=== PATIENT | male | born 1960 | race Caucasian/White ===

== ENCOUNTER 2023-09-17 16:34 | Inpatient (IN) | payer BC, SELFPAY ==
--- NOTE | ~2023-09-17 | CT_ITS ---
EXAMINATION: CT ABDOMEN AND PELVIS WITHOUT CONTRAST CLINICAL INFORMATION: left flank pain. COMPARISON: No pertinent prior studies are available for comparison. TECHNIQUE: Multidetector volumetric imaging was performed from the superior aspect of the liver through the pubic symphysis without contrast per renal stone protocol. Sagittal and coronal reformatted images were obtained on the technologist workstation. This CT examination was performed using dose optimization techniques as appropriate, variously including the following: *Automated exposure control *Adjustment of mA and/or kV according to patient size (this includes techniques or standardized protocols for targeted exams where dose is matched to indication/reason for exam; i.e. extremities or head) *Use of iterative reconstruction technique DLP: 760 mGy-cm. FINDINGS: LUNG BASES: The visualized lung bases are unremarkable. Prominent coronary artery calcification LIVER, GALLBLADDER, BILIARY TREE: The non-contrast liver is normal in size, shape, and attenuation. No focal hepatic lesion or biliary ductal dilatation is present. The gallbladder is unremarkable with no evidence of radiopaque gallstones, gallbladder wall thickening, or obvious pericholecystic inflammatory changes. PANCREAS: Unremarkable. SPLEEN: Unremarkable. ADRENAL GLANDS: Unremarkable. KIDNEYS AND URETERS: Mild hydronephrosis to the left kidney extending up to a 1.3 cm calcification at the left ureteropelvic junction. The ureter distal to this however is also distended up to one another 0.4 cm calculi at the left ureterovesicular junction. I do not appreciate any obstructive changes to the contralateral right kidney however there is a tiny punctate 2 mm calcification at the contralateral right ureteral vesicular junction as well. BLADDER: In addition to the calculi at the bilateral ureterovesicular junction there is an additional tiny 2 mm calcification within the posterior bladder lumen on the right GASTROINTESTINAL TRACT: Colonic diverticulosis more so in the sigmoid colon. I do not appreciate any colonic wall thickening or pericolonic inflammatory change to suggest diverticulitis. Small bowel unremarkable ABDOMINAL WALL: Small fat-containing umbilical hernia LYMPHOVASCULAR STRUCTURES: Prominent vascular calcification within the aorta iliac system. No bulky adenopathy. PELVIC VISCERA: Unremarkable. OSSEUS STRUCTURES: Multilevel degenerative changes in the spine and hips CT/CT abdomen pelvis wo IV con IMPRESSION: Left-sided hydronephrosis and hydroureter extending up to both a 1.3 cm calcification at the left ureteropelvic junction as well as also a 0.4 cm calcification at the left ureterovesicular junction. There is a tiny punctate 2 mm calcification at the contralateral right ureterovesicular junction as well.
--- NOTE | ~2023-09-17 | FL_ITS ---
EXAMINATION: XR FLUOROSCOPY WITH IMAGES CLINICAL INFORMATION: Cystoscopy, ureteroscopy, retro, stent left COMPARISON: None available. TECHNIQUE: Fluoroscopy Supervised By: Dr. Prince. Fluoroscopy Time: 11.8. Cumulative Dose: 4.11 mGy. DAP: Not reported on this machine. Images: 2. FINDINGS: Technical assistance and equipment were provided by the Department of Radiology during intraoperative fluoroscopy. A total of 2 limited fluoroscopic spot images are submitted for archival purposes. A radiologist was not present during the procedure. The images are available for review on PACS. FL/FL guidance in OR IMPRESSION: Technical assistance and equipment provided by the Department of Radiology during procedural fluoroscopy, as above. Please see procedure report for further details.
[2023-09-17 16:41] VITALS: BP 150/90; PULSE 96; O2SAT 96
[2023-09-17 17:13] VITALS: BP 145/89; PULSE 99; RESP 18; TEMP 35.9; O2SAT 94; BMI 28.1
--- NOTE | 2023-09-17 17:14 | ECG_ITS ---
Test Reason : L FLANK PAIN Blood Pressure : / mmHG Vent. Rate : 090 BPM Atrial Rate : 090 BPM P-R Int : 188 ms QRS Dur : 094 ms QT Int : 374 ms P-R-T Axes : 031 036 022 degrees QTc Int : 457 ms Normal sinus rhythm Normal ECG No previous ECGs available Referred By: Elizabeth Curry Electronically Signed By:JEREMY LEON MD
--- NOTE | 2023-09-17 17:14 | ED_ITS ---
HPI - General Adult General Chief complaint: Back Pain/Injury Stated complaint: Lower left back pain, increased. per ems Time Seen by Provider: 09/17/23 19:58 Source: patient Mode of arrival: ambulatory Limitations: no limitations History of Present Illness HPI narrative: Patient with no significant past medical history noticed acute onset of sharp left flank pain 3 days ago lasted for few hours then became asymptomatic then again patient had pain which also lasted for few hours and again today patient has severe pain just prior to arrival with nausea vomiting and cold sweats no trauma no hematuria no history of kidney stone in the past no abdominal no testicular pain or penile discharge or hematuria no fever or chills no cough or shortness of breath on arrival patient is pain-free Related Data Home Medications Medication Instructions Recorded Confirmed amlodipine 5 mg tablet 5 mg PO BEDTIME 09/17/23 09/17/23 atorvastatin 40 mg tablet 40 mg PO BEDTIME 09/17/23 09/17/23 dulaglutide 3 mg/0.5 mL 3 mg subcut WE@2100 09/17/23 09/17/23 subcutaneous pen injector (Trulicity) glyburide 2.5 mg-metformin 500 mg 2 tab PO BID 09/17/23 09/17/23 tablet multivitamin 1 tab PO BEDTIME 09/17/23 09/17/23 Allergies Allergy/AdvReac Type Severity Reaction Status Date / Time No Known Allergies Allergy Verified 09/17/23 17:16 Review of Systems 2 Review of Systems: Yes all other systems are reviewed and are negative [facility] Social History Social History Advance Directives: No Advance Directives Information Provided: No Physical Exam ED Vital Signs: Vital Signs - 24 hr 09/17/23 17:13 09/17/23 20:21 09/17/23 22:58 Temperature 96.7 F L 98.3 F 98.3 F Pulse Rate 99 87 94 Respiratory Rate 18 17 17 Blood Pressure 145/89 H 146/85 H 137/77 Pulse Oximetry 94 95 96 Oxygen Delivery Method Room Air Room Air Room Air BMI result Body Mass Index 28.1 Appearance: Alert. Oriented X3. No acute distress. Eyes: PERRLA, No Nystagmus ENT: Pharynx normal. Oral Mucosa moist Neck: Normal inspection. Neck supple. CVS: Normal heart rate and rhythm. Pulses normal. Respiratory: No respiratory distress. Equal air entry bilateral, no wheezing/rales/rhonchi Abdomen: Soft and nontender. Bowel sounds are present, no mass palpable, mild left CVA tenderness Skin: Skin warm and dry. Normal skin color. Normal skin turgor. Extremities: No lower extremity edema. No calf tenderness Neuro: Oriented X 3. Course Course Course Narrative: RME performed by Elizabeth Curry PA-C. Patient is a 63 year old assigned male at presenting to the emergency department with back pain. Detailed physical exam and review of systems are deferred to the director of cardiac rehabilitation. Labs, imaging, and swabs ordered. Patient placed back in the waiting room pending room availability and results. Medications Administered Discontinued Medications Generic Name Dose Route Start Last Admin Trade Name Freq PRN Reason Stop Dose Admin Sodium Chloride 1,000 mls @ 999 mls/hr 09/17/23 21:38 09/17/23 22:09 Ns IV 09/17/23 22:38 999 mls/hr .Q1H1M ONE Administration Tamsulosin HCl 0.4 mg 09/17/23 21:38 09/17/23 22:09 Tamsulosin Hcl 0.4 Mg Capsule PO 09/17/23 21:39 0.4 mg ONCE ONE Administration Medical Decision Making Medical Decision Making [facility] Narrative: Patient with 1.3 cm left UP junction in 0.4 at UV junction stones with frequent pain case discussed with Dr. Tovar urologist plan to do lithotripsy in the a.m. with stent placement will admit to his service Differential Diagnosis Differential Diagnoses: The differential diagnosis associated with the presentation includes Renal colic/pyelonephritis/kidney stone Lab Data [facility] Lab Attestation statement: I reviewed the patient's lab results. 09/17/23 17:47 09/17/23 17:47 Labs: Lab Results 09/17/23 09/17/23 Range/Units 17:47 20:43 WBC 13.2 H (4.8-10.8) X10*3/uL RBC 5.01 (4.60-5.80) X10*6/uL Hgb 15.7 (14.0-18.0) g/dl Hct 45.8 (42.0-52.0) % MCV 91.4 (80.0-98.0) fL MCH 31.3 (27.0-33.0) pg MCHC 34.3 (31.0-36.0) g/dl RDW 12.2 (11.0-16.0) % Plt Count 272 (160-400) X10*3/uL MPV 8.9 L (9.4-12.4) fL Immature Gran % (Auto) 0.9 H (0.0-0.4) % Neut % (Auto) 70.5 (45-73) % Lymph % (Auto) 18.6 L (20-40) % [place] % (Auto) 8.8 (2-11) % Eos % (Auto) 0.9 (0-4) % Baso % (Auto) 0.3 (0-2) % Lymph # (Auto) 2.5 (1.2-4.9) X10*3/uL [place] # (Auto) 1.2 (0.1-1.2) X10*3/uL Eos # (Auto) 0.1 (0.0-0.4) X10*3/uL Baso # (Auto) 0.0 (0.0-0.2) X10*3/uL Abs Immat Gran (auto) 0.12 H (0.00-0.03) X10*3/uL Absolute Neuts (auto) 9.3 H (2.0-8.3) x10*3/uL Absolute Nucleated RBC 0.000 (0.0-0.012) X10*3/uL Nucleated RBC % (auto) 0.0 (0.0-0.2) /100WBC Sodium 138 (135-145) mmol/L Potassium 4.1 (3.3-5.1) mmol/L Chloride 102 (96-108) mmol/L Carbon Dioxide 28 (22-29) mmol/L Anion Gap 12 (12-20) BUN 15 (9-16) mg/dL Creatinine 0.87 (0.5-1.4) mg/dL Estim Creat Clear Calc 92.9 Estimated GFR > 60 Random Glucose 143 H (60-115) mg/dL Calcium 9.9 (8.4-10.2) mg/dL Magnesium 1.8 (1.6-2.6) mg/dL Total Bilirubin 0.6 (0.0-1.0) mg/dL AST 32 (5-37) U/L ALT 25 (0-40) U/L Alkaline Phosphatase 76 (39-117) U/L Troponin I High Sens < 2.7 (<3.5-35.0) ng/L Total Protein 7.7 (6.5-8.0) g/dL Albumin 4.6 (3.5-5.0) g/dL Urine Color Yellow Urine Appearance Clear Urine pH 5.5 (5.0-9.0) Ur Specific [place] 1.020 (1.005-1.025) Urine Protein Negative (Neg-Trace) mg/dL Urine Glucose (UA) Negative (Negative) mg/dL Urine Ketones Trace (Negative) mg/dL Urine Blood Large (3+) H (Negative) Urine Nitrite Negative (Negative) Ur Leukocyte Esterase Trace H (Negative) Urine RBC >20 H (0-2) /HPF Urine WBC 0-5 (0-5) /HPF Ur Squamous Epith Cells 0-2 (0-2) /HPF Urine Bacteria None Seen (None Seen) Hyaline Casts 0-2 (0-2) /LPF Influenza Type A (PCR) NEGATIVE (Negative) Influenza Type B (PCR) NEGATIVE (Negative) RSV RNA Qual (PCR) NEGATIVE (Negative) SARS-CoV-2 RNA (RT-PCR) NEGATIVE (Negative) Independent Interpretation I performed an independent interpretation of an: CT Scan Radiology Impression Discussion of test interpretation with radiology: I have reviewed the radiologist's reading. Radiologist Impression: CT/CT abdomen pelvis wo IV con IMPRESSION: Left-sided hydronephrosis and hydroureter extending up to both a 1.3 cm calcification at the left ureteropelvic junction as well as also a 0.4 cm calcification at the left ureterovesicular junction. There is a tiny punctate 2 mm calcification at the contralateral right ureterovesicular junction as well. Discharge Plan Discharge Clinical Impression: Acute unilateral obstructive uropathy Patient Disposition: Admitted As Inpatient
[2023-09-17 17:55] LABS: MANUAL DIFF FLAG NO
[2023-09-17 18:09] LABS: Basophils Percent Auto 0.3 % (0-2); Eosinophils Absolute Auto 0.1 X10*3/uL (0.0-0.4); Eosinophils Percent Auto 0.9 % (0-4); Hematocrit 45.8 % (42.0-52.0); Hemoglobin 15.7 g/dl (14.0-18.0); Imm Gran Abs Auto 0.12 X10*3/uL (0.00-0.03); Imm Gran Pct Auto 0.9 % (0.0-0.4); Lymphocytes Absolute Auto 2.5 X10*3/uL (1.2-4.9); Lymphocytes Percent Auto 18.6 % (20-40); Mean Corpuscular HGB Conc 34.3 g/dl (31.0-36.0); Mean Corpuscular Hemoglobin 31.3 pg (27.0-33.0); Mean Corpuscular Volume 91.4 fL (80.0-98.0); Mean Platelet Volume 8.9 fL (9.4-12.4); Monocytes Absolute Auto 1.2 X10*3/uL (0.1-1.2); Monocytes Percent Auto 8.8 % (2-11); Neutrophils Absolute Auto 9.3 x10*3/uL (2.0-8.3); Neutrophils Percent Auto 70.5 % (45-73); Platelet Count 272 X10*3/uL (160-400); Red Blood Count 5.01 X10*6/uL (4.60-5.80); Red Cell Distribution Width 12.2 % (11.0-16.0); White Blood Count 13.2 X10*3/uL (4.8-10.8)
[2023-09-17 18:11] LABS: Alanine Aminotransferase 25 U/L (0-40); Albumin Level 4.6 g/dL (3.5-5.0); Alkaline Phosphatase 76 U/L (39-117); Anion Gap 12 (12-20); Aspartate Amino Transferase 32 U/L (5-37); Bilirubin Total 0.6 mg/dL (0.0-1.0); Blood Urea Nitrogen 15 mg/dL (9-16); Calcium 9.9 mg/dL (8.4-10.2); Carbon Dioxide 28 mmol/L (22-29); Chloride 102 mmol/L (96-108); Creatinine Clr Calc Pharmacy 92.9; Estimated Glomerular Filt Rate > 60; Glucose Random 143 mg/dL (60-115); Magnesium 1.8 mg/dL (1.6-2.6); Potassium 4.1 mmol/L (3.3-5.1); Sodium 138 mmol/L (135-145); Total Protein 7.7 g/dL (6.5-8.0)
[2023-09-17 18:19] LABS: Troponin-I High Sensitivity < 2.7 ng/L (<3.5-35.0)
[2023-09-17 18:34] LABS: Influenza A PCR NEGATIVE (Negative); Influenza B PCR NEGATIVE (Negative); Resp Syncy Virus RNA Qual PCR NEGATIVE (Negative); SARS COV2 PCR INHOUSE NEGATIVE (Negative)
[2023-09-17 20:21] VITALS: BP 146/85; PULSE 87; RESP 17; TEMP 36.8; O2SAT 95
[2023-09-17 20:57] LABS: Appearance Urine Clear; Color Urine Yellow; Glucose Urine UA Negative (Negative); Leukocyte Esterase Urine Trace (Negative); Nitrite Urine Negative (Negative); PH 5.5 (5.0-9.0); UMIC TRIGGER UACC YES; Urine Blood Large (3+) (Negative); Urine Ketones Trace mg/dL (Negative); Urine Protein Negative (Neg-Trace)
[2023-09-17 21:00] LABS: Bacteria Urine None Seen (None Seen); Hyaline Casts Urine 0-2 /LPF (0-2); RBC Urine >20 /HPF (0-2); Squamous Epithelial Cell Urine 0-2 /HPF (0-2); WBC Urine 0-5 /HPF (0-5)
--- NOTE | 2023-09-17 21:40 | PHA.MEDREC ---
Pharmacy Consult ? Medication Reconciliation Pharmacy has completed the medication reconciliation. Patient reported medicaitons. Reported lisinopril but amlopdipine is on claim history. When amlodipine was mention he said that sound right. Cierra Williamson, GennaroD
[2023-09-17] MEDS: 0.9 % Sodium Chloride 1,000 ML 999 ML IV (22:09)
[2023-09-17] MEDS: Tamsulosin HCL 0.4 MG CAPSULE PO (22:09)
[2023-09-17 22:58] VITALS: BP 137/77; PULSE 94; RESP 17; TEMP 36.8; O2SAT 96
[2023-09-17] MEDS: 0.9 % Sodium Chloride 1,000 ML 100 ML IVCONT (23:30)
[2023-09-18] VITALS (9 sets, daily range): BP systolic 122–150; BP diastolic 59–92; PULSE 71–94; RESP 15–18; TEMP 36.3–36.7; O2SAT 94–100; BMI 28.2
[2023-09-18] MEDS: Ketorolac Tromethamine 15 MG/ML VIAL IVPUSH ×2 (04:59→23:47)
--- NOTE | 2023-09-18 09:49 | PM.HPGS ---
History of Present Illness History of Present Illness Date of Service: 09/18/23 Chief complaint: Left renal stones Narrative: Julien Hein is a 63 year old male Presents to hospital with 3 days of sharp left flank pain. Consistent with renal colic. Pain with severity to 8/10 which would last for 1-2 hours and then relent. Past medical history of hypertension, dyslipidemia and diabetes - see medication list Presentation triggered by associated nausea with vomiting and cold sweats. Denies hematuria, dysuria. No prior history of renal stones. Creatinine 0.87, WBC 13.2, urine large blood, trace leukocytes, calcium 9.9 CT imaging - images reviewed personally - Mild hydronephrosis to the left kidney extending up to a 1.3 cm calcification at the left ureteropelvic junction. The ureter distal to this however is also distended up to one another 0.4 cm calculi at the left ureterovesicular junction Based on clinical findings recommend cystoscopy, left retrograde, left stent placement Review of Systems Constitutional: Constitutional: Reports as per HPI and Reports no additional constitutional complaints Cardiovascular: Cardiovascular: Reports as per HPI and Reports no additional cardiovascular complaints Respiratory: Respiratory: Reports as per HPI and Reports no additional respiratory complaints Gastrointestinal: Gastrointestinal: Reports as per HPI and Reports no additional gastrointestinal complaints Genitourinary: Genitourinary: Reports as per HPI Musculoskeletal: Musculoskeletal: Reports no additional musculoskeletal complaints and Reports as per HPI Neurologic: Reports system reviewed and no additional complaints, except as documented and Reports as per HPI [facility] Social History Social History Household Members: Spouse Housing: House Do you presently have visiting nurse or other home services: No Patient Tobacco Use Status: Never used Tobacco Use of substances other than those prescribed or required for medical reasons: No Currently Displaying Signs/Symptoms of Drug Intoxication Withdrawal: No Have you been hit, kicked, punched, or otherwise hurt by someone within the past year? If so, by whom?: No Do you feel safe in your current relationship?: Yes Are you made to feel afraid or neglected: No Advance Directives: No Advance Directives Information Provided: No Do you have thoughts of harming others: None Do you have a plan to hurt others: No Plan Recently lost weight without trying: No How much weight loss: Not applicable Eating poorly because of decreased appetite: No Nutrition screen score: 0 Nutrition Risks: No Nutritional Risk Poor oral hygiene: No Meds Allergies Allergy/AdvReac Type Severity Reaction Status Date / Time No Known Allergies Allergy Verified 09/17/23 17:16 Active Medications: Current Medications Acetaminophen (Acetaminophen 325 Mg Tablet) 650 mg PO Q6H PRN PRN Reason: Pain, Mild (Pain Scale 1-3) Hydromorphone HCl (Hydromorphone Hcl 1 Mg/Ml Syringe) 0.5 mg IVPUSH Q4H PRN; Protocol PRN Reason: Pain, Severe (Pain Scale 7-10) Sodium Chloride (Ns) 1,000 mls @ 100 mls/hr IVCONT .Q10H [facility] Last Admin: 09/17/23 23:30 Dose: 100 mls/hr Ketorolac Tromethamine (Ketorolac Tromethamine 15 Mg/Ml Vial) 15 mg IVPUSH Q6H PRN PRN Reason: Pain, Moderate(Pain Scale 4-6) Last Admin: 09/18/23 04:59 Dose: 15 mg Morphine Sulfate (Morphine Sulfate 4 Mg/Ml Cartridge) 4 mg IVPUSH RQ4H PRN; Protocol PRN Reason: Pain, Severe (Pain Scale 7-10) Ondansetron HCl (Ondansetron Hcl 4 Mg/2 Ml Vial) 4 mg IVPUSH RQ6H PRN PRN Reason: Vomiting Ondansetron HCl (Ondansetron Hcl 4 Mg/2 Ml Vial) 4 mg IVPUSH Q8H PRN PRN Reason: Nausea and Vomiting Oxycodone HCl (Oxycodone Hcl Immed Release 5 Mg Tablet) 5 mg PO Q6H PRN PRN Reason: Pain, Severe (Pain Scale 7-10) Sodium Chloride (0.9 % Sodium Chloride Flush 3 Ml Syringe) 3 ml IVFLUSH QSHIFT [facility] Last Admin: 09/18/23 07:26 Dose: Not Given Home Medications Medication Instructions Recorded Confirmed Last Taken Type amlodipine 5 mg tablet 5 mg PO BEDTIME 09/17/23 09/17/23 09/16/22 History atorvastatin 40 mg tablet 40 mg PO BEDTIME 09/17/23 09/17/23 09/16/22 History dulaglutide 3 mg/0.5 mL 3 mg subcut WE@2100 09/17/23 09/17/23 09/12/23 History subcutaneous pen injector (Trulicity) glyburide 2.5 mg-metformin 500 mg 2 tab PO BID 09/17/23 09/17/23 09/17/22 History tablet multivitamin 1 tab PO BEDTIME 09/17/23 09/17/23 09/16/22 History Physical Exam Vital Signs: Vital Signs: Last Vital Signs Temp 97.6 F 09/18/23 07:08 Pulse 86 09/18/23 07:08 Resp 16 09/18/23 07:08 BP 129/79 09/18/23 07:08 Pulse Ox 97 09/18/23 07:08 O2 Del Method Room Air 09/18/23 07:08 BMI result Body Mass Index 28.2 Const: General: cooperative, healthy appearing, comfortable and no acute distress Orientation/consciousness: patient oriented x3 HEENT: Face and sinus: Yes normal facial exam Mouth: moist mucous membranes Neck: Neck: Yes normal visual inspection, Yes full ROM and Yes trachea midline Chest: Chest palpation & inspection: normal inspection of the chest Resp: Effort & Inspection: normal respiratory effort, able to speak in complete sentences and no respiratory distress GI: Inspection: Yes normal to inspection Back/Spine/Pelvis: Cervical Spine: normal cervical lordosis Thoracic/Lumbar Spine: thoracic and lumbar spine normal to inspection Skin: General skin exam: no rashes or lesions noted Neuro: General: patient oriented x3, tone normal and moves all extremities Extrem: General: Yes normal to inspection and Yes capillary refill normal Results Results Labs: Short CBC 09/17/23 Range/Units 17:47 WBC 13.2 H (4.8-10.8) X10*3/uL Hgb 15.7 (14.0-18.0) g/dl Hct 45.8 (42.0-52.0) % Plt Count 272 (160-400) X10*3/uL BMP 09/17/23 17:47 Sodium 138 Potassium 4.1 Chloride 102 Carbon Dioxide 28 BUN 15 Creatinine 0.87 Calcium 9.9 Liver Function 09/17/23 Range/Units 17:47 Total Bilirubin 0.6 (0.0-1.0) mg/dL AST 32 (5-37) U/L ALT 25 (0-40) U/L Alkaline Phosphatase 76 (39-117) U/L Albumin 4.6 (3.5-5.0) g/dL Urine 09/17/23 Range/Units 20:43 Urine Color Yellow Urine Appearance Clear Urine pH 5.5 (5.0-9.0) Ur Specific [place] 1.020 (1.005-1.025) Urine Protein Negative (Neg-Trace) mg/dL Urine Glucose (UA) Negative (Negative) mg/dL Assessment and Plan (1) Acute unilateral obstructive uropathy: Status: Acute Plan Risks, benefits and alternatives to therapy were discussed. These include but are not limited to infection, bleeding, damage to local organs and tissues, need for further interventions. Anesthetic risks regarding cardiac arrhythmia, blood clots, and potential mortality were discussed. The patient understands the typical recovery time and the outpatient nature of the procedure. After consideration of these risks the patient gives full informed consent and they wish to move ahead with the procedure. Cystoscopy, left retrograde, left stent placement Quality Stroke Does the patient have a stroke diagnosis?: No VTE Prior VTE?: No VTE Risk Level:: Medical - low VTE Device Contraindication: Treatment Not Indicated VTE Drug Contraindication: Treatment Not Indicated Procedures Date of Service Date of Service: 09/18/23
[2023-09-18] MEDS: 0.9 % Sodium Chloride 1,000 ML 100 ML IVCONT (13:41)
--- NOTE | 2023-09-18 14:06 | MHC.CM.PN ---
pt live with has own ride home and is indepencent dc plan home no servies
[2023-09-18 14:26] LABS: Glucose, Whole Blood 122 mg/dL (60-115)
--- NOTE | 2023-09-18 14:27 | PC.NURSE ---
Pre op care transitioned to Meaghan MADSEN.
--- NOTE | 2023-09-18 14:36 | HO.ANESPROP2 ---
[facility] Active Problems Active Problems: All Active Problems (Updated 09/17/23 @ 21:32 by Ed Jacob MD) Acute unilateral obstructive uropathy (Acute) Surgical History Surgical History History of right shoulder replacement Hx of knee surgery History of Problems with Anesthesia: No Social History Social History Household Members: Spouse Housing: House Do you presently have visiting nurse or other home services: No Patient Tobacco Use Status: Never used Tobacco Use of substances other than those prescribed or required for medical reasons: No Currently Displaying Signs/Symptoms of Drug Intoxication Withdrawal: No Have you been hit, kicked, punched, or otherwise hurt by someone within the past year? If so, by whom?: No Do you feel safe in your current relationship?: Yes Are you made to feel afraid or neglected: No Are you DNR?: No Advance Directives: No Advance Directives Information Provided: No Do you have thoughts of harming others: None Do you have a plan to hurt others: No Plan Recently lost weight without trying: No How much weight loss: Not applicable Eating poorly because of decreased appetite: No Nutrition screen score: 0 Nutrition Risks: No Nutritional Risk Poor oral hygiene: No service: No Meds Allergies Allergy/AdvReac Type Severity Reaction Status Date / Time No Known Allergies Allergy Verified 09/18/23 13:59 Active Medications: Current Medications Acetaminophen (Acetaminophen 325 Mg Tablet) 650 mg PO Q6H PRN PRN Reason: Pain, Mild (Pain Scale 1-3) Hydromorphone HCl (Hydromorphone Hcl 1 Mg/Ml Syringe) 0.5 mg IVPUSH Q4H PRN; Protocol PRN Reason: Pain, Severe (Pain Scale 7-10) Sodium Chloride (Ns) 1,000 mls @ 100 mls/hr IVCONT .Q10H [facility] Last Admin: 09/18/23 13:41 Dose: 100 mls/hr Ketorolac Tromethamine (Ketorolac Tromethamine 15 Mg/Ml Vial) 15 mg IVPUSH Q6H PRN PRN Reason: Pain, Moderate(Pain Scale 4-6) Last Admin: 09/18/23 04:59 Dose: 15 mg Morphine Sulfate (Morphine Sulfate 4 Mg/Ml Cartridge) 4 mg IVPUSH RQ4H PRN; Protocol PRN Reason: Pain, Severe (Pain Scale 7-10) Ondansetron HCl (Ondansetron Hcl 4 Mg/2 Ml Vial) 4 mg IVPUSH RQ6H PRN PRN Reason: Vomiting Ondansetron HCl (Ondansetron Hcl 4 Mg/2 Ml Vial) 4 mg IVPUSH Q8H PRN PRN Reason: Nausea and Vomiting Oxycodone HCl (Oxycodone Hcl Immed Release 5 Mg Tablet) 5 mg PO Q6H PRN PRN Reason: Pain, Severe (Pain Scale 7-10) Sodium Chloride (0.9 % Sodium Chloride Flush 3 Ml Syringe) [facility] Last Admin: 09/18/23 07:26 Dose: Not Given Home Medications Medication Instructions Recorded Confirmed Last Taken Type amlodipine 5 mg tablet 5 mg PO BEDTIME 09/17/23 09/17/23 09/16/22 History atorvastatin 40 mg tablet 40 mg PO BEDTIME 09/17/23 09/17/23 09/16/22 History dulaglutide 3 mg/0.5 mL 3 mg subcut WE@2100 09/17/23 09/17/23 09/12/23 History subcutaneous pen injector (Trulicity) glyburide 2.5 mg-metformin 500 mg 2 tab PO BID 09/17/23 09/17/23 09/17/22 History tablet multivitamin 1 tab PO BEDTIME 09/17/23 09/17/23 09/16/22 History Exam Height,Weight and Vital Signs: Height 5 ft 8 in Weight 84 kg Last Vital Signs Temp 97.8 F 09/18/23 14:13 Pulse 83 09/18/23 14:13 Resp 16 09/18/23 14:13 BP 150/87 H 09/18/23 14:13 Pulse Ox 94 09/18/23 14:13 O2 Del Method Room Air 09/18/23 14:13 Pertinent Lab Results Pertinent Lab Results: Laboratory Tests 09/17/23 09/17/23 09/18/23 17:47 20:43 14:19 WBC 13.2 H RBC 5.01 Hgb 15.7 Hct 45.8 MCV 91.4 MCH 31.3 MCHC 34.3 RDW 12.2 Plt Count 272 MPV 8.9 L Immature Gran % (Auto) 0.9 H Neut % (Auto) 70.5 Lymph % (Auto) 18.6 L [place] % (Auto) 8.8 Eos % (Auto) 0.9 Baso % (Auto) 0.3 Lymph # (Auto) 2.5 [place] # (Auto) 1.2 Eos # (Auto) 0.1 Baso # (Auto) 0.0 Abs Immat Gran (auto) 0.12 H Absolute Neuts (auto) 9.3 H Absolute Nucleated RBC 0.000 Nucleated RBC % (auto) 0.0 Sodium 138 Potassium 4.1 Chloride 102 Carbon Dioxide 28 Anion Gap 12 BUN 15 Creatinine 0.87 Estim Creat Clear Calc 92.9 Estimated GFR > 60 POC Glucose 122 H Random Glucose 143 H Calcium 9.9 Magnesium 1.8 Total Bilirubin 0.6 AST 32 ALT 25 Alkaline Phosphatase 76 Troponin I High Sens < 2.7 Total Protein 7.7 Albumin 4.6 Urine Color Yellow Urine Appearance Clear Urine pH 5.5 Ur Specific [place] 1.020 Urine Protein Negative Urine Glucose (UA) Negative Urine Ketones Trace Urine Blood Large (3+) H Urine Nitrite Negative Ur Leukocyte Esterase Trace H Urine RBC >20 H Urine WBC 0-5 Ur Squamous Epith Cells 0-2 Urine Bacteria None Seen Hyaline Casts 0-2 Influenza Type A (PCR) NEGATIVE Influenza Type B (PCR) NEGATIVE RSV RNA Qual (PCR) NEGATIVE SARS-CoV-2 RNA (RT-PCR) NEGATIVE Airway Mallampati Class: II TM Dist: >3cm Neck ROM: Full Heart: RRR Lungs: CTA Assessment and Plan Assessment Anesthesia Assessment: Anesthesia Plan Discussed Final Anesthetic Review History of Problems with Anesthesia: No ASA Class: III and Emergency Final Preanesthetic Review: Meds/Allgs Chart Reviewed, Consent Obtained/Reviewed and Anes Risks/Benef Reviewed Patient Risk: Intermediate Procedure Risk: Low Anesthetic Plan Anesthetic Plan: GA Disposition: Standard PACU
--- NOTE | 2023-09-18 14:57 | HO.ANESPROP2 ---
[facility] Active Problems Active Problems: All Active Problems (Updated 09/17/23 @ 21:32 by Ed Jacob MD) Acute unilateral obstructive uropathy (Acute) Past Medical History Functional capacity: independent ambulation Surgical History Surgical History History of right shoulder replacement Hx of knee surgery History of Problems with Anesthesia: No Social History Social History Household Members: Spouse Housing: House Do you presently have visiting nurse or other home services: No Patient Tobacco Use Status: Never used Tobacco Use of substances other than those prescribed or required for medical reasons: No Currently Displaying Signs/Symptoms of Drug Intoxication Withdrawal: No Have you been hit, kicked, punched, or otherwise hurt by someone within the past year? If so, by whom?: No Do you feel safe in your current relationship?: Yes Are you made to feel afraid or neglected: No Are you DNR?: No Advance Directives: No Advance Directives Information Provided: No Do you have thoughts of harming others: None Do you have a plan to hurt others: No Plan Recently lost weight without trying: No How much weight loss: Not applicable Eating poorly because of decreased appetite: No Nutrition screen score: 0 Nutrition Risks: No Nutritional Risk Poor oral hygiene: No service: No Meds Allergies Allergy/AdvReac Type Severity Reaction Status Date / Time No Known Allergies Allergy Verified 09/18/23 13:59 Active Medications: Current Medications Acetaminophen (Acetaminophen 325 Mg Tablet) 650 mg PO Q6H PRN PRN Reason: Pain, Mild (Pain Scale 1-3) Fentanyl (Fentanyl Citrate/Pf 100 Mcg/2 Ml Vial) 25 mcg IVPUSH Q5M PRN; Protocol PRN Reason: Pain, Moderate(Pain Scale 4-6) Hydromorphone HCl (Hydromorphone Hcl 1 Mg/Ml Syringe) 0.5 mg IVPUSH Q4H PRN; Protocol PRN Reason: Pain, Severe (Pain Scale 7-10) Sodium Chloride (Ns) 1,000 mls @ 100 mls/hr IVCONT .Q10H OZ Last Admin: 09/18/23 13:41 Dose: 100 mls/hr Ketorolac Tromethamine (Ketorolac Tromethamine 15 Mg/Ml Vial) 15 mg IVPUSH Q6H PRN PRN Reason: Pain, Moderate(Pain Scale 4-6) Last Admin: 09/18/23 04:59 Dose: 15 mg Morphine Sulfate (Morphine Sulfate 4 Mg/Ml Cartridge) 4 mg IVPUSH RQ4H PRN; Protocol PRN Reason: Pain, Severe (Pain Scale 7-10) Ondansetron HCl (Ondansetron Hcl 4 Mg/2 Ml Vial) 4 mg IVPUSH RQ6H PRN PRN Reason: Vomiting Ondansetron HCl (Ondansetron Hcl 4 Mg/2 Ml Vial) 4 mg IVPUSH Q8H PRN PRN Reason: Nausea and Vomiting Ondansetron HCl (Ondansetron Hcl 4 Mg/2 Ml Vial) 4 mg IVPUSH ONCE PRN PRN Reason: Nausea and Vomiting Oxycodone HCl (Oxycodone Hcl Immed Release 5 Mg Tablet) 5 mg PO Q6H PRN PRN Reason: Pain, Severe (Pain Scale 7-10) Oxycodone HCl (Oxycodone Hcl Immed Release 5 Mg Tablet) 5 mg PO ONCE PRN PRN Reason: Pain, Severe (Pain Scale 7-10) Sodium Chloride (0.9 % Sodium Chloride Flush 3 Ml Syringe) [facility] Last Admin: 09/18/23 07:26 Dose: Not Given Home Medications Medication Instructions Recorded Confirmed Last Taken Type amlodipine 5 mg tablet 5 mg PO BEDTIME 09/17/23 09/17/23 09/16/22 History atorvastatin 40 mg tablet 40 mg PO BEDTIME 09/17/23 09/17/23 09/16/22 History dulaglutide 3 mg/0.5 mL 3 mg subcut WE@2100 09/17/23 09/17/23 09/12/23 History subcutaneous pen injector (Trulicity) glyburide 2.5 mg-metformin 500 mg 2 tab PO BID 09/17/23 09/17/23 09/17/22 History tablet multivitamin 1 tab PO BEDTIME 09/17/23 09/17/23 09/16/22 History Exam Height,Weight and Vital Signs: Height 5 ft 8 in Weight 84 kg Last Vital Signs Temp 97.8 F 09/18/23 14:13 Pulse 83 09/18/23 14:13 Resp 16 09/18/23 14:13 BP 150/87 H 09/18/23 14:13 Pulse Ox 94 09/18/23 14:13 O2 Del Method Room Air 09/18/23 14:13 Pertinent Lab Results Pertinent Lab Results: Laboratory Tests 09/17/23 09/17/23 09/18/23 17:47 20:43 14:19 WBC 13.2 H RBC 5.01 Hgb 15.7 Hct 45.8 MCV 91.4 MCH 31.3 MCHC 34.3 RDW 12.2 Plt Count 272 MPV 8.9 L Immature Gran % (Auto) 0.9 H Neut % (Auto) 70.5 Lymph % (Auto) 18.6 L [place] % (Auto) 8.8 Eos % (Auto) 0.9 Baso % (Auto) 0.3 Lymph # (Auto) 2.5 [place] # (Auto) 1.2 Eos # (Auto) 0.1 Baso # (Auto) 0.0 Abs Immat Gran (auto) 0.12 H Absolute Neuts (auto) 9.3 H Absolute Nucleated RBC 0.000 Nucleated RBC % (auto) 0.0 Sodium 138 Potassium 4.1 Chloride 102 Carbon Dioxide 28 Anion Gap 12 BUN 15 Creatinine 0.87 Estim Creat Clear Calc 92.9 Estimated GFR > 60 POC Glucose 122 H Random Glucose 143 H Calcium 9.9 Magnesium 1.8 Total Bilirubin 0.6 AST 32 ALT 25 Alkaline Phosphatase 76 Troponin I High Sens < 2.7 Total Protein 7.7 Albumin 4.6 Urine Color Yellow Urine Appearance Clear Urine pH 5.5 Ur Specific [place] 1.020 Urine Protein Negative Urine Glucose (UA) Negative Urine Ketones Trace Urine Blood Large (3+) H Urine Nitrite Negative Ur Leukocyte Esterase Trace H Urine RBC >20 H Urine WBC 0-5 Ur Squamous Epith Cells 0-2 Urine Bacteria None Seen Hyaline Casts 0-2 Influenza Type A (PCR) NEGATIVE Influenza Type B (PCR) NEGATIVE RSV RNA Qual (PCR) NEGATIVE SARS-CoV-2 RNA (RT-PCR) NEGATIVE Airway Mallampati Class: II TM Dist: >3cm Neck ROM: Full Heart: RRR Lungs: CTA Assessment and Plan Final Anesthetic Review History of Problems with Anesthesia: No NPO: Yes ASA Class: II Final Preanesthetic Review: Meds/Allgs Chart Reviewed, Consent Obtained/Reviewed and Anes Risks/Benef Reviewed Patient Risk: Intermediate Procedure Risk: Low Anesthetic Plan Anesthetic Plan: GA Disposition: Standard PACU
--- NOTE | 2023-09-18 17:48 | MHC.SHP ---
Pre-Procedural Eval Section A Date of Service: 09/18/23 The patient is an INPATIENT: Yes The History & Physical has been completed within 30 days and I have reviewed it.: Yes Section B Chief Complaint: Left renal stones Allergies: Allergies Allergy/AdvReac Type Severity Reaction Status Date / Time No Known Allergies Allergy Verified 09/18/23 13:59 Plan Diagnosis/Plan: Unchanged I have reviewed the history and physical and performed a pertinent physical examination on my patient. No changes have occurred unless specified. Cysto Left retrograde, left ureteral stent. Discussed risks to include but not limited to, blood in the urine, burning with urination, urgency. Time Spent With Patient Time: Total time managing care of this patient today ____ minutes.
--- NOTE | 2023-09-18 18:54 | W.PM.OPN ---
Operative Note Operative Note Date of Service: 09/18/23 Narrative: PreOperative Diagnosis:?? Left ureteral stones left hydronephrosis Post Operative Diagnosis:?? ?Left ureteral stones left hydronephrosis Procedure: - cystoscopy, left retrograde - left stent insertion, size 6 [place]er by multi length Surgeon:?Dr Ryan Prince Anesthesia:? General Procedure: After informed consent was verified the patient was brought to the operating placed on the OR table in supine position.? General Anesthesia was administered per protocol.? The patient was placed in lithotomy position, prepped and draped in the usual sterile fashion.? Safety pause time-out and side of surgery confirmed.? Antibiotics confirmed. A 22 [place] cystoscope was inserted transurethrally, the bulbous urethra was within normal limits. The prostatic urethra noted prominent median lobe. The bladder was visualized.? Both ureteric orifices were in normal position. The? left ureteric orifice was cannulated? and a retrograde examination was performed, a distal ureteral stone was visualized. A hydrophilic guidewire was placed up to the level of the renal pelvis under fluoroscopy. The UPJ stone was noted on fluoroscopy. A 6 fr by multi length cm ureteral stent was passed over the guide wire under fluoroscopic guidance. The guide wire was removed. The bladder was emptied.? The rigid cystoscope was removed. ? 2% lidocaine jelly was passed transurethrally. The patient tolerated the procedure well and was brought to the recovery room in stable condition. Complications: None Drains: Ureteral stent as dictated above
[2023-09-18] MEDS: Acetaminophen 1,000 MG/100 ML PIGGYBACK 400 MG IV (20:57)
[2023-09-18 20:59] LABS: Glucose, Whole Blood 116 mg/dL (60-115)
[2023-09-18] MEDS: 0.9 % Sodium Chloride Flush 3 ML SYRINGE IVFLUSH (23:51)
[2023-09-19] MEDS: 0.9 % Sodium Chloride 1,000 ML 100 ML IVCONT (02:30)
[2023-09-19 03:24] VITALS: BP 131/78; PULSE 72; RESP 18; TEMP 36.3; O2SAT 96
[2023-09-19 07:15] VITALS: BP 137/72; PULSE 88; RESP 16; TEMP 36.4; O2SAT 96
--- NOTE | 2023-09-19 09:42 | PM.DS ---
DS: Providers Provider Date of Service: 09/19/23 Date of admission: 09/17/23 23:16 Primary care physician: Mana Garner NP DS: Diagnosis Discharge Diagnosis (1) Acute unilateral obstructive uropathy: Status: Acute DS: Summary Hospital Course Hospital Course: Underwent cystoscopy, left stent placement Resolution of pain Time spent discussing smoking cessation with patient: 3 to 10 minutes Status at Discharge Functional status at discharge: independent ambulation Overall status at discharge: patient is back to baseline Time Attestation Discharge coordination time: Less than 30 minutes Quality: Safe Use of Opioids Does Pt have an Active Cancer Diagnosis on the Problem List?: No Quality: Stroke Does the patient have a stroke diagnosis?: No Physical Exam Vital Signs: Vital Signs: Last Vital Signs Temp 97.6 F 09/19/23 07:15 Pulse 88 09/19/23 07:15 Resp 16 09/19/23 07:15 BP 137/72 09/19/23 07:15 Pulse Ox 96 09/19/23 07:15 O2 Del Method Room Air 09/19/23 07:15 BMI result Body Mass Index 28.2 DS: Data Data Completed and Pending Labs on day of discharge: Laboratory Results - last 24 hr 09/18/23 09/18/23 14:19 20:54 POC Glucose [address] scan - abdomen: Attestation: I personally reviewed and interpreted this imaging study as follows: My impression: Distal left stone, proximal left UPJ stone Radiologist's impression: ITS Impressions Abdomen/Pelvis CT 09/17/23 17:51 IMPRESSION: Left-sided hydronephrosis and hydroureter extending up to both a 1.3 cm calcification at the left ureteropelvic junction as well as also a 0.4 cm calcification at the left ureterovesicular junction. There is a tiny punctate 2 mm calcification at the contralateral right ureterovesicular junction as well. Discharge Plan Discharge Anticipated Discharge Date/Time: 09/18/23 19:40 Patient Disposition: Home, Self-Care Discharge Diagnosis: Left nephrolithiasis Referrals: Mana Garner NP [Primary Care Provider] - None Discharge Medications: New phenazopyridine [Pyridium] 200 mg tablet 200 mg PO TID PRN (Reason: urinary burning) Qty: 30 0RF tamsulosin [Flomax] 0.4 mg capsule 0.4 mg PO DAILY Qty: 30 0RF Continued multivitamin Tablet 1 tab PO BEDTIME atorvastatin 40 mg tablet 40 mg PO BEDTIME amlodipine 5 mg tablet 5 mg PO BEDTIME glyburide-metformin 2.5-500 mg tablet 2 tab PO BID Trulicity 3 mg/0.5 mL pen injector 3 mg subcut WE@2100 Discharge Orders: Discharge Order (Routine); Ordered 09/18/23 Ordered By: Ryan Prince Diet: Advance to usual diet Activity on Discharge: As tolerated Stand Alone Forms: Patient Portal Discharge page Care Plan Goals: Follow up with Dr. Tovar for further stone management Health Concerns: Increase fluid intake. Plan of Treatment: Follow up with Dr. Tovar for further stone management Assessment: Stable
[2023-09-19] MEDS: Phenazopyridine HCL 100 MG TABLET PO (10:17)
--- NOTE | 2023-09-19 12:42 | MHC.CM.PN ---
Patient discharged to home self care today. He has arranged for transportation home.
--- NOTE | 2023-09-20 06:41 | HO.POSTANES ---
Post Anesthesia Evaluation Post Anesthesia Evaluation Date of Service: 09/19/23 Vital Signs: Patient seen at 0730am 09/19/2023. Vitals 137/72, 88, 16, 97.6F, 96%RA Anesthesia: General Mental Status: Awake Pain Control: Satisfactory Nausea/Vomiting: None Hydration: Adequate Anesthesia-Related Issues: No Anes. Related Issues
== END 2023-09-19 11:07 | disposition home or self-care (01) | DRG 465 ==
LOC: HO.ED 21:32 → HO.EDOVER 23:29 → HO.S3 09-18 03:50
PROVIDERS: Physician Assistant Medical; Urology; Admitting Provider Urology; Emergency Provider Internal Medicine; PCP Nurse Practitioner Family; Visit Provider Urology
PROC: 0T778DZ Dilation of Left Ureter with Intraluminal Device, Via Natural or Artificial Opening Endoscopic (ICD-10-PCS; principal; 2023-09-18 15:20)
DX: N13.2 Hydronephrosis with renal and ureteral calculous obstruction (principal); E11.9 Type 2 diabetes mellitus without complications; Z20.822 Contact with and (suspected) exposure to COVID-19; Z79.85 Long-term (current) use of injectable non-insulin antidiabetic drugs; Z79.84 Long term (current) use of oral hypoglycemic drugs; Z79.899 Other long term (current) drug therapy
CPT/HCPCS: 0241U; 74176; 80053; 81001; 82947; 83735; 84484; 85025; 93005; 99285; C1758; C1769; C2617; J0131; J1885; J1956; J2250; J2704; J3010; Q9967

== ENCOUNTER → 2023-09-17 17:14 | Outpatient (BNV) | payer BC, SELFPAY | PROVIDERS: Admitting Provider Urology; Emergency Provider Internal Medicine; PCP Nurse Practitioner Family; Visit Provider Internal Medicine Cardiovascular Disease | DX: Z01.818 Encounter for other preprocedural examination (principal); N13.9 Obstructive and reflux uropathy, unspecified | CPT/HCPCS: 93010 ==

== ENCOUNTER → 2023-09-17 23:16 | Outpatient (BNV) | payer BC, SELFPAY | PROVIDERS: Admitting Provider Urology; Emergency Provider Internal Medicine; PCP Nurse Practitioner Family; Visit Provider Urology | DX: N13.9 Obstructive and reflux uropathy, unspecified (principal) | CPT/HCPCS: 52332; 74420; 99222; 99238 ==

== ENCOUNTER → 2023-09-26 07:54 | Day surgery (SDC) | payer BC, SELFPAY ==
--- NOTE | 2023-09-24 13:37 | HO.ANESPROP2 ---
HPI - Anesthesia Eval Consult details Narrative: 63yo M for Left Lithotripsy ESW,with stent removal Anesthesia Pre-Procedure Meds Is the patient on any of the following meds?: Dulaglutide (Trulicity) PMF Active Problems Active Problems: All Active Problems (Updated 09/18/23 @ 18:01 by Elisa Gaston RN) Acute unilateral obstructive uropathy (Acute) Past Medical History Medical History (Updated 09/18/23 @ 18:01 by Elisa Gaston RN) Hyperlipidemia Hypertension Diabetes type 2, controlled Surgical History Surgical History History of right shoulder replacement Hx of knee surgery History of Problems with Anesthesia: No Social History Social History Household Members: Spouse Housing: House Do you presently have visiting nurse or other home services: No Patient Tobacco Use Status: Never used Tobacco service: No Meds Allergies Allergy/AdvReac Type Severity Reaction Status Date / Time No Known Allergies Allergy Verified 09/18/23 13:59 Home Medications Medication Instructions Recorded Confirmed Last Taken Type amlodipine 5 mg tablet 5 mg PO BEDTIME 09/17/23 09/17/23 09/16/22 History atorvastatin 40 mg tablet 40 mg PO BEDTIME 09/17/23 09/17/23 09/16/22 History dulaglutide 3 mg/0.5 mL 3 mg subcut WE@2100 09/17/23 09/17/23 09/12/23 History subcutaneous pen injector (Trulicity) glyburide 2.5 mg-metformin 500 mg 2 tab PO BID 09/17/23 09/17/23 09/17/22 History tablet multivitamin 1 tab PO BEDTIME 09/17/23 09/17/23 09/16/22 History Exam Pertinent Lab Results Pertinent Lab Results: Laboratory Tests 09/17/23 17:47 WBC 13.2 H Hgb 15.7 Hct 45.8 Plt Count 272 Sodium 138 Potassium 4.1 Chloride 102 Carbon Dioxide 28 BUN 15 Creatinine 0.87 Narrative Narrative: EKG 09/2023 Vent. Rate : 090 BPM Atrial Rate : 090 BPM P-R Int : 188 ms QRS Dur : 094 ms QT Int : 374 ms P-R-T Axes : 031 036 022 degrees QTc Int : 457 ms Normal sinus rhythm Normal ECG No previous ECGs available Assessment and Plan Assessment Anesthesia Assessment: Chart Reviewed Final Anesthetic Review History of Problems with Anesthesia: No
--- NOTE | ~2023-09-26 | XR_ITS ---
EXAMINATION: XR ABDOMEN KUB CLINICAL INDICATION: Left-sided renal stone COMPARISON: None available. TECHNIQUE: AP view of the abdomen. FINDINGS: There is scattered stool and gas seen in the colon without any significant distention. There is a 1.1 cm stone left lower pole kidney. There is a left ureteral stent in place. There is no organomegaly. There is moderate spondylosis L1-L2 and mild spondylosis L3-L4 and L4-L5 disc levels. XR/XR KUB IMPRESSION: 1. 1.1 cm stone left lower pole kidney. 2. Left ureteral stent is in place. 3. Mild constipation.
== END ==
PROVIDERS: PCP Nurse Practitioner Family; Visit Provider Urology
DX: N13.9 Obstructive and reflux uropathy, unspecified (principal); Z53.09 Procedure and treatment not carried out because of other contraindication
CPT/HCPCS: 74018

== ENCOUNTER 2023-10-04 09:56 | Day surgery (SDC) | payer BC, SELFPAY ==
--- NOTE | 2023-10-03 10:24 | P.CONAN_ITS ---
Documented by User: Radha Ray NP 10/03/23 10:25 HPI - Anesthesia Eval Consult details Narrative: 63yo M for Left Lithotripsy ESW,with stent removal Anesthesia Pre-Procedure Meds Is the patient on any of the following meds?: Dulaglutide (Trulicity) [facility] Past Medical History Medical History Hyperlipidemia Hypertension Diabetes type 2, controlled Surgical History Surgical History H/O shoulder surgery History of right shoulder replacement Hx of knee surgery History of Problems with Anesthesia: No Social History Social History Household Members: Spouse Housing: House Do you presently have visiting nurse or other home services: No Patient Tobacco Use Status: Never used Tobacco Advance Directives: No Advance Directives Information Provided: Yes service: No Meds Allergies Allergy/AdvReac Type Severity Reaction Status Date / Time No Known Allergies Allergy Verified 09/18/23 13:59 Home Medications Medication Instructions Recorded Confirmed Last Taken Type amlodipine 5 mg tablet 5 mg PO BEDTIME 09/17/23 10/04/23 10/03/23 History atorvastatin 40 mg tablet 40 mg PO BEDTIME 09/17/23 10/04/23 09/16/22 History dulaglutide 3 mg/0.5 mL 3 mg subcut WE@2100 09/17/23 10/04/23 09/26/23 History subcutaneous pen injector (Trulicity) glyburide 2.5 mg-metformin 500 mg 2 tab PO BID 09/17/23 10/04/23 10/03/23 History tablet multivitamin 1 tab PO BEDTIME 09/17/23 10/04/23 09/16/22 History Exam Pertinent Lab Results Pertinent Lab Results: Laboratory Tests 09/17/23 17:47 WBC 13.2 H Hgb 15.7 Hct 45.8 Plt Count 272 Sodium 138 Potassium 4.1 Chloride 102 Carbon Dioxide 28 BUN 15 Creatinine 0.87 Narrative Narrative: EKG 09/2023 Vent. Rate : 090 BPM Atrial Rate : 090 BPM P-R Int : 188 ms QRS Dur : 094 ms QT Int : 374 ms P-R-T Axes : 031 036 022 degrees QTc Int : 457 ms Normal sinus rhythm Normal ECG No previous ECGs available Assessment and Plan Assessment Anesthesia Assessment: Chart Reviewed Final Anesthetic Review History of Problems with Anesthesia: No Documented by User: Bri Luu MD 10/04/23 10:58 HPI - Anesthesia Eval Anesthesia Pre-Procedure Meds If Yes to any meds - educate patient: Pt education - increased risk of aspiration and Pt education - possibility of cancelled proc at provider's discretion PMFSH Past Medical History Medical History Hyperlipidemia Hypertension Diabetes type 2, controlled Family History Family history of problems with anesthesia: No Surgical History Surgical History H/O shoulder surgery History of right shoulder replacement Hx of knee surgery History of Problems with Anesthesia: Yes Social History Social History Household Members: Spouse Housing: House Do you presently have visiting nurse or other home services: No Patient Tobacco Use Status: Never used Tobacco Advance Directives: No Advance Directives Information Provided: Yes service: No Meds Allergies Allergy/AdvReac Type Severity Reaction Status Date / Time No Known Allergies Allergy Verified 09/18/23 13:59 Home Medications Medication Instructions Recorded Confirmed Last Taken Type amlodipine 5 mg tablet 5 mg PO BEDTIME 09/17/23 10/04/23 10/03/23 History atorvastatin 40 mg tablet 40 mg PO BEDTIME 09/17/23 10/04/23 09/16/22 History dulaglutide 3 mg/0.5 mL 3 mg subcut WE@2100 09/17/23 10/04/23 09/26/23 History subcutaneous pen injector (Trulicity) glyburide 2.5 mg-metformin 500 mg 2 tab PO BID 09/17/23 10/04/23 10/03/23 History tablet multivitamin 1 tab PO BEDTIME 09/17/23 10/04/23 09/16/22 History Exam Airway Mallampati Class: II TM Dist: >3cm Neck ROM: Full Heart: rrr Lungs: cta Assessment and Plan Assessment Anesthesia Assessment: Anesthesia Plan Discussed Final Anesthetic Review Family History of Problems with Anesthesia: No History of Problems with Anesthesia: Yes NPO: Yes ASA Class: III Final Preanesthetic Review: No Changes in Pt Med Stat, Meds/Allgs Chart Reviewed and Consent Obtained/Reviewed Patient Risk: Intermediate Procedure Risk: Intermediate Anesthetic Plan Anesthetic Plan: GA Disposition: Standard PACU
[2023-10-04 10:52] VITALS: BP 133/79; PULSE 83; RESP 16; TEMP 36.7; O2SAT 96; BMI 30.5
[2023-10-04 10:58] LABS: Glucose, Whole Blood 151 mg/dL (60-115)
[2023-10-04] MEDS: levoFLOXacin 500 MG TABLET PO (11:08)
[2023-10-04] MEDS: Lactated Ringers 1,000 ML 100 ML IVCONT (11:12)
[2023-10-04] MEDS: Acetaminophen 1,000 MG/100 ML PIGGYBACK 400 MG IV (11:12)
[2023-10-04] MEDS: Lactated Ringers 1,000 ML 999 ML IV (11:12)
--- NOTE | 2023-10-04 11:31 | W.PM.OPN ---
Operative Note Operative Note Date of Service: 10/04/23 Narrative: PreOperative Diagnosis: left Renal stones Post Operative Diagnosis: left Renal stones Procedure: left ESWL Surgeon: Dr Wm Tovar Anesthesia: mac/sedation Indications for procedure: The patient understands ESWL may be a staged procedure and subsequent intervention may be required based on imaging after ESWL. Quoted stone clearance rates for a solitary procedure are in the 70-80% range based primarily on stone location. They also understand there is a risk of bleeding to the kidney, infection, damage to adjacent organs, and stone migration following the procedure. - Imaging - 12mm right stone Procedure: After informed consent was verified the patient was brought to the operating room and placed in a supine position. Anesthesia was performed per protocol. Safety pause time-out was performed. Imaging was displayed in the room and laterality confirmed. ESWL was performed. The 1st 500 shocks were performed at 60 hertz. These were performed with increasing power. Once maximum power was reached the rate was increased to 180 hertz. A total of 2500 shocks were given. Targeted imaging with ultrasound/fluoroscopy showed stone smudging suggestive of disintegration. The patient tolerated the procedure well and was transferred to the recovery area upon completion. Post procedure imaging will be organized. There was no evidence for flank discoloration.
--- NOTE | 2023-10-04 11:57 | MHC.SHP ---
Pre-Procedural Eval Section A Date of Service: 10/04/23 The patient is an INPATIENT: No Changes since office visit: No Cold of Flu in the past 2 weeks, No New Medical Problems, No Changes in Medication and No Patient answered all questions The History & Physical has been completed within 30 days and I have reviewed it.: Yes Section B Chief Complaint: Calculus of kidney Allergies: Allergies Allergy/AdvReac Type Severity Reaction Status Date / Time No Known Allergies Allergy Verified 09/18/23 13:59 Review of Systems Sugical H&P ROS: Negative: Constitution, Cardiovascular, Respiratory, Neurological, Psychiatric, Hem-Onc, Allergic/Immunologic, Gastrointestinal, Genitourinary, Musculoskeletal, Integumentary, Endocrine and Eyes/Ears/Nose/Throat Exam Surgical H&P Exam: Normal: HEENT, Normal: Heart, Normal: Lungs, Normal: Extremities, Normal: Abdomen, Normal: Skin and Normal: Neurological Plan Diagnosis/Plan: Unchanged (left eswl with cysto stent removal) I have reviewed the history and physical and performed a pertinent physical examination on my patient. No changes have occurred unless specified. Time Spent With Patient Time: Total time managing care of this patient today ____ minutes.
--- NOTE | 2023-10-04 12:14 | W.PM.OPN ---
Operative Note Operative Note Date of Service: 10/04/23 Narrative: PreOperative Diagnosis: left Renal stones with stent Post Operative Diagnosis: left Renal stones with stent Procedure: left ESWL with cysto stent removal Surgeon: Dr Wm Tovar Anesthesia: mac/sedation Indications for procedure: The patient understands ESWL may be a staged procedure and subsequent intervention may be required based on imaging after ESWL. Quoted stone clearance rates for a solitary procedure are in the 70-80% range based primarily on stone location. They also understand there is a risk of bleeding to the kidney, infection, damage to adjacent organs, and stone migration following the procedure. - Imaging 12mm left renal Procedure: After informed consent was verified the patient was brought to the operating room and placed in a supine position. Anesthesia was performed per protocol. Safety pause time-out was performed. Imaging was displayed in the room and laterality confirmed. ESWL was performed. The 1st 500 shocks were performed at 60 hertz. These were performed with increasing power. Once maximum power was reached the rate was increased to 180 hertz. A total of 2500 shocks were given. Targeted imaging with ultrasound/fluoroscopy showed stone smudging suggestive of disintegration. WHen ESWL completed - cystoscopy performed with left stent emerging from the ureter. Stent grasped and removed without issue. The patient tolerated the procedure well and was transferred to the recovery area upon completion. Post procedure imaging will be organized. There was no evidence for flank discoloration.
[2023-10-04 12:42] VITALS: BP 115/73; PULSE 86; RESP 14; TEMP 36.3; O2SAT 94
[2023-10-04 12:57] VITALS: BP 116/76; PULSE 81; RESP 18; TEMP 36.1; O2SAT 96
[2023-10-04] MEDS: Phenazopyridine HCL 100 MG TABLET PO (13:22)
[2023-10-04 13:23] VITALS: BP 143/86; PULSE 84; RESP 16; TEMP 36.3; O2SAT 97
== END 2023-10-04 14:07 | disposition home or self-care (01) ==
PROVIDERS: PCP Nurse Practitioner Family; Visit Provider Urology
PROC: (CPT 50590; principal; 2023-10-04 11:40)
DX: N20.0 Calculus of kidney (principal); Z46.6 Encounter for fitting and adjustment of urinary device; E11.9 Type 2 diabetes mellitus without complications; I10 Essential (primary) hypertension; E78.5 Hyperlipidemia, unspecified; Z79.84 Long term (current) use of oral hypoglycemic drugs; Z79.85 Long-term (current) use of injectable non-insulin antidiabetic drugs; Z79.899 Other long term (current) drug therapy
CPT/HCPCS: 50590; 52310; 82947; J0131; J1885; J1940; J2250; J2704; J3010

== ENCOUNTER → 2023-10-04 09:56 | Outpatient (BNV) | payer BC, SELFPAY | PROVIDERS: PCP Nurse Practitioner Family; Visit Provider Urology | DX: N20.0 Calculus of kidney (principal); Z96.0 Presence of urogenital implants | CPT/HCPCS: 50590; 52310 ==

== ENCOUNTER 2023-11-07 14:17 | Outpatient (REF) | payer BC, SELFPAY ==
--- NOTE | ~2023-11-07 | US_ITS ---
EXAMINATION: US RETROPERITONEAL LIMITED (RENAL ONLY) CLINICAL INFORMATION: Obstructed reflux uropathy.. COMPARISON: None available. TECHNIQUE: Retroperitoneal ultrasound was performed FINDINGS: RIGHT KIDNEY: 12.5 x 7.2 x 7.0 cm (SAG x AP x TRV). The kidney is normal in size, contour, and echogenicity. Renal cortical thickness is normal. No calculi or focal parenchymal lesions. There is mild peripelvic prominence versus caliectasis in lower pole. LEFT KIDNEY: 12.2 x 6.7 x 5.8 cm (SAG x AP x TRV). The kidney is normal in size, contour, and echogenicity. Renal cortical thickness is normal. No calculi or focal parenchymal lesions. No hydronephrosis. There is anechoic cyst in midpole measuring 0.7 x 0.9 x 0.7 cm. There is an echogenic stone in lower pole measuring 0.7 x 0.7 x 0.8 cm. US/US renal BI IMPRESSION: 1. There is an anechoic cyst midpole left kidney. 2. There is an echogenic stone lower pole left kidney without caliectasis or hydronephrosis. 3. There is mild peripelvic calyceal versus caliectasis in the lower pole right kidney.
== END 2023-11-07 14:18 | disposition home or self-care (01) ==
LOC: HO.HMGCX 14:17
PROVIDERS: PCP Nurse Practitioner Family; Visit Provider Urology
DX: N13.9 Obstructive and reflux uropathy, unspecified (principal)
CPT/HCPCS: 76775

== ENCOUNTER 2023-11-16 13:12 | Outpatient (AMB) | payer BC, SELFPAY ==
--- NOTE | 2023-11-16 14:00 | A.OFFVIS_ITS ---
Intake Intake Visit Reasons: S/P ESWL- 6wks follow up/US(set) Intake Note: Patient presents today for a follow-up after surgery Meds- None Allergies to Antibiotic- No Known Allergies Blood Thinner- None Patient Symptoms: Patient brought in samples of kidney stones in a urine cup Patient stated he finished taking Tamsulosin and Pyridium Stake Driver Required: No Accompanied by: Self / Same As Patient Allergies No Known Allergies Allergy (Verified 11/16/23 14:05) HPI HPI Comments History of Present Illness Details Michele is a pleasant male. He is a patient of Dr. Garner. He seen for the following urologic conditions - nephrolithiasis 6 mm remnant stone on renal ultrasound Has had occasional symptoms Would like to move ahead with left ESWL repeat Nephrolithiasis Background diabetes Imaging - CT 1.3cm stone left UPJ Intervention - stent placement with left ESWL Therapeutic plan - encourage fluids, lemon juice, vitamin B6 PFSH Medical History Hyperlipidemia Hypertension Diabetes type 2, controlled Surgical History H/O shoulder surgery History of right shoulder replacement Hx of knee surgery Social History Household Members: Spouse Housing: House Do you presently have visiting nurse or other home services: No Patient Tobacco Use Status: Never used Tobacco service: No Assessment & Plan Assessment & Plan (1) Nephrolithiasis: Code(s): N20.0 - Calculus of kidney Plan Extracorporeal Shock Wave Lithotripsy We discussed the nature of the decision and reasonable alternatives for performing the above surgery. Interventions include chemical dissolution, ESWL, ureteroscopy with laser lithotripsy and stent placement, PCNL. Options such as medical therapy were discussed. The relative uncertainties and benefits related to each alternate procedure were adequately discussed. General surgical risks including, but not limited to, pain, bleeding, infection, myocardial infarction, pulmonary embolus, deep vein thrombosis and cerebrovascular accident which may result in further hospitalization were discussed. Full disclosure of the procedure as well as all major risks, benefits and complications were discussed including but not limited to risks of bleeding, injury to the kidney with hematoma or martha-hematoma, failure to fragments stone, potential for ureteric obstruction from stone passage and need for secondary procedures. There is a small long-term risk of hypertension and a question amber of diabetes. Success rate of fragmentation and passage is approximately 70- 75%. This is compared to the risks and benefits for ureteroscopy which has a higher success rate but is a more invasive procedure. The success rate of the procedure was discussed. Success of the procedure in the short-term does not necessarily guarantee that long-term success will be maintained. Suitable follow up will need to be maintained. The patient showed understanding of the discussion as well as the typical recovery time, and the outpatient nature of this procedure. Opportunity was given for questions. Repeat-back protocol used to confirm understanding. They wish to proceed with left ESWL Orders: Orders Surgical Today N20.0 - Calculus of kidney Medications: Discontinued tamsulosin (Flomax) Discontinued Reason: Duplicate 0.4 mg PO DAILY 30 caps 0RF Patient Instructions: Imaging studies, laboratory and physical exam results were discussed and reviewed in detail. No major barriers to patient understanding were identified. An opportunity to ask questions regarding the treatment plan was provided. All questions were answered. The patient expressed understanding and agreement with the above treatment plan. The patient is aware they should contact our office by phone for worsening of their current condition or the appearance of new urologic symptoms. Compliance is encouraged with any medications and followup testing that is ordered. It is a privilege to participate in the urologic care of your patient. If you have any questions or concerns regarding treatment for the above conditions, or other urologic issues, please do not hesitate to contact me. The office telephone contact is [phone]. This note is constructed using voice recognition software. While every effort has been made to ensure accuracy linter drier operator errors may have been included. Yours sincerely, Dr Wm Tovar MD, [facility] - Urology Providers of Expert, Compassionate Care for the Genitourinary System Coding Level of Care Code Est Pt Level 4 (99930) Diagnoses Nephrolithiasis N20.0
== END 2023-11-16 14:21 | disposition home or self-care (01) ==
PROVIDERS: PCP Nurse Practitioner Family; Visit Provider Urology
DX: N20.0 Calculus of kidney (principal)
CPT/HCPCS: 99024

== ENCOUNTER 2023-11-16 13:12 | Outpatient (REF) | payer BC, SELFPAY ==
[2023-11-27 22:48] LABS: Stone Source KIDNEY STONE
== END 2023-11-16 13:13 | disposition home or self-care (01) ==
LOC: HO.LAB 13:12
PROVIDERS: PCP Nurse Practitioner Family; Visit Provider Urology
DX: N20.0 Calculus of kidney (principal)
CPT/HCPCS: 82365; 88300

== ENCOUNTER 2024-01-09 06:38 | Day surgery (SDC) | payer BC, SELFPAY ==
[2024-01-07 13:15] VITALS: BMI 30.5
--- NOTE | 2024-01-08 10:40 | HO.ANESPROP2 ---
HPI - Anesthesia Eval Consult details Narrative: 63yo M for Left ESWL s/p ESWL, stent removal 09/2023 with TIVA Anesthesia Pre-Procedure Meds Is the patient on any of the following meds?: GLP1/DPP4 PMFSH Active Problems Active Problems: All Active Problems Nephrolithiasis (Acute) Past Medical History Medical History Renal calculi Hyperlipidemia Hypertension Diabetes type 2, controlled Family History Family history of problems with anesthesia: No Surgical History Surgical History Hx of lithotripsy H/O shoulder surgery History of right shoulder replacement Hx of knee surgery History of Problems with Anesthesia: Yes Social History Social History Household Members: Spouse Housing: House Do you presently have visiting nurse or other home services: No Patient Tobacco Use Status: Never used Tobacco Advance Directives: No Advance Directives Information Provided: Yes Advance Directives on File: No service: No Meds Allergies Allergy/AdvReac Type Severity Reaction Status Date / Time No Known Allergies Allergy Verified 01/09/24 07:17 Home Medications ?Medication ?Instructions ?Recorded ?Confirmed ?Last Taken ?Type amlodipine 5 mg tablet 5 mg PO BEDTIME 09/17/23 01/09/24 10/03/23 History atorvastatin 40 mg tablet 40 mg PO BEDTIME 09/17/23 01/09/24 09/16/22 History dulaglutide 3 mg/0.5 mL 3 mg subcut WE@2100 09/17/23 01/09/24 09/26/23 History subcutaneous pen injector (Trulicity) glyburide 2.5 mg-metformin 500 mg 2 tab PO BID 09/17/23 01/09/24 10/03/23 History tablet multivitamin 1 tab PO BEDTIME 09/17/23 01/09/24 09/16/22 History Exam Height,Weight and Vital Signs: Height 6 ft Weight 101.968 kg Pertinent Lab Results Pertinent Lab Results: Laboratory Tests 09/17/23 17:47 WBC 13.2 H Hgb 15.7 Hct 45.8 Plt Count 272 Sodium 138 Potassium 4.1 Chloride 102 Carbon Dioxide 28 BUN 15 Creatinine 0.87 Narrative Narrative: EKG 09/2023 Vent. Rate : 090 BPM Atrial Rate : 090 BPM P-R Int : 188 ms QRS Dur : 094 ms QT Int : 374 ms P-R-T Axes : 031 036 022 degrees QTc Int : 457 ms Normal sinus rhythm Normal ECG No previous ECGs available Assessment and Plan Assessment Anesthesia Assessment: Chart Reviewed Final Anesthetic Review Family History of Problems with Anesthesia: No History of Problems with Anesthesia: Yes
--- NOTE | ~2024-01-09 | XR_ITS ---
EXAMINATION: XR ABDOMEN KUB CLINICAL INDICATION: Left kidney stones COMPARISON: KUB on 09/26/2023 TECHNIQUE: AP view of the abdomen. FINDINGS: AP supine x-rays of the abdomen show nonspecific bowel gas pattern. No abnormal bowel dilatation is seen. There is normal visualization of rectal bowel gas. Bilateral kidneys are partially obscured by overlying colon bowel gas and fecal shadows especially in descending colon. No abnormal calcification could be seen. XR/XR KUB IMPRESSION: 1. Interval resolution of left lower pole renal calculus and removal of left ureteric double pigtail stent. No radiopaque renal stone could be seen on the current examination limited by overlapping bowel gas and fecal shadows. 2. No signs of intestinal obstruction on supine x-rays.
[2024-01-09 07:25] LABS: Glucose, Whole Blood 130 mg/dL (60-115)
[2024-01-09 07:38] VITALS: BP 134/76; PULSE 90; RESP 16; TEMP 36.5; O2SAT 94; BMI 28.7
[2024-01-09] MEDS: Lactated Ringers 1,000 ML 100 ML IVCONT (07:52)
--- NOTE | 2024-01-09 10:01 | MHC.SHP ---
Pre-Procedural Eval Section A - 24 Hr Update-Section A only Date of Service: 01/09/24 The patient is an INPATIENT: No The patient has been examined within 24 hours of the surgical procedure. The History & Physical has been completed within 30 days and I have reviewed it.: Yes Section B - Complete if H&P > 30 days Chief Complaint: Calculus of kidney Allergies: Allergies Allergy/AdvReac Type Severity Reaction Status Date / Time No Known Allergies Allergy Verified 01/09/24 07:17 Plan Diagnosis/Plan: Change I have reviewed the history and physical and performed a pertinent physical examination on my patient. No changes have occurred unless specified. Michele is a 63-year-old male who is status post left ESWL in September,, at that time a radiopaque approximately 1.3 cm stone was visualized left renal UPJ. The patient had a follow-up renal ultrasound 10/18/23 which noted findings of a renal stone fragment in the left lower pole kidney. KUB today-no radiopaque stone is seen in the left renal fossa there is bowel gas that limits visualization. Findings discussed with the patient will start with fluoro and ultrasound evaluation to re-evaluate for renal stone fragment prior to anesthesia and definitive left ESWL therapy today. Time Spent With Patient Time: Total time managing care of this patient today ____ minutes.
--- NOTE | 2024-01-09 10:07 | HO.ANESPROP2 ---
HPI - Anesthesia Eval Consult details Narrative: for lithotripsy PMFSH Active Problems Active Problems: All Active Problems Nephrolithiasis (Acute) Past Medical History Medical History Renal calculi Hyperlipidemia Hypertension Diabetes type 2, controlled Family History Family history of problems with anesthesia: No Surgical History Surgical History Hx of lithotripsy H/O shoulder surgery History of right shoulder replacement Hx of knee surgery History of Problems with Anesthesia: Yes Social History Social History Household Members: Spouse Housing: House Do you presently have visiting nurse or other home services: No Patient Tobacco Use Status: Never used Tobacco Advance Directives: No Advance Directives Information Provided: Yes Advance Directives on File: No service: No Meds Allergies Allergy/AdvReac Type Severity Reaction Status Date / Time No Known Allergies Allergy Verified 01/09/24 07:17 Active Medications: Current Medications Lactated Ringer's (Lr) 1,000 mls @ 100 mls/hr IVCONT .Q10H OZ Last Admin: 01/09/24 07:52 Dose: 100 mls/hr Home Medications ?Medication ?Instructions ?Recorded ?Confirmed ?Last Taken ?Type amlodipine 5 mg tablet 5 mg PO BEDTIME 09/17/23 01/09/24 10/03/23 History atorvastatin 40 mg tablet 40 mg PO BEDTIME 09/17/23 01/09/24 09/16/22 History dulaglutide 3 mg/0.5 mL 3 mg subcut WE@2100 09/17/23 01/09/24 09/26/23 History subcutaneous pen injector (Trulicity) glyburide 2.5 mg-metformin 500 mg 2 tab PO BID 09/17/23 01/09/24 10/03/23 History tablet multivitamin 1 tab PO BEDTIME 09/17/23 01/09/24 09/16/22 History Exam Height,Weight and Vital Signs: Height 6 ft Weight 96.162 kg Last Vital Signs Temp 97.7 F 01/09/24 07:38 Pulse 90 01/09/24 07:38 Resp 16 01/09/24 07:38 BP 134/76 01/09/24 07:38 Pulse Ox 94 01/09/24 07:38 O2 Del Method Room Air 01/09/24 07:38 Pertinent Lab Results Pertinent Lab Results: Laboratory Tests 01/09/24 07:20 POC Glucose 130 H Airway Mallampati Class: II TM Dist: >3cm Neck ROM: Full Heart: rrr Lungs: cta Assessment and Plan Assessment Anesthesia Assessment: Anesthesia Plan Discussed and Chart Reviewed Final Anesthetic Review Family History of Problems with Anesthesia: No History of Problems with Anesthesia: Yes NPO: No ASA Class: III Final Preanesthetic Review: No Changes in Pt Med Stat, Meds/Allgs Chart Reviewed, Consent Obtained/Reviewed and Anes Risks/Benef Reviewed Patient Risk: Intermediate Procedure Risk: Low Anesthetic Plan Anesthetic Plan: GA Disposition: Standard PACU
--- NOTE | 2024-01-09 10:23 | W.PM.OPN ---
Operative Note Operative Note Date of Service: 01/09/24 Narrative: PreOperative Diagnosis:? ? Left Renal stone Post Operative Diagnosis:?Left? Renal stone Procedure:?ESWL not performed Surgeon:?Dr Ryan Prince Anesthesia:? No anesthesia administered Indications for procedure: Michele is a 63-year-old male who is status post left ESWL in September,, at that time a radiopaque approximately 1.3 cm stone was visualized in the left renal UPJ. The patient had a follow-up renal ultrasound 10/18/23 which noted findings of a renal stone fragment in the left lower pole kidney. KUB today-no radiopaque stone is seen in the left renal fossa there is bowel gas that limits visualization. Findings discussed with the patient including plan to use fluoro and ultrasound to re-evaluate for renal stone fragment prior to anesthesia and definitive left ESWL therapy today. Simulation: After informed consent was verified the patient was brought to the operating room and placed in a supine position.? Imaging was displayed in the room and laterality confirmed. Fluoroscopy and ultrasound was performed in the procedure room and a stone was not identified. No procedure was performed. 10 minutes in the procedure room. The patient was transferred to the recovery area. Complications: None
[2024-01-09 10:25] VITALS: BP 138/70; PULSE 82; RESP 16; TEMP 37.2; O2SAT 95
== END 2024-01-09 10:45 | disposition home or self-care (01) ==
PROVIDERS: PCP Nurse Practitioner Family; Visit Provider Urology
PROC: (CPT 50590; principal; 2024-01-09 08:30)
DX: N20.0 Calculus of kidney (principal); Z53.8 Procedure and treatment not carried out for other reasons; Z87.442 Personal history of urinary calculi; I10 Essential (primary) hypertension; E78.5 Hyperlipidemia, unspecified; E11.9 Type 2 diabetes mellitus without complications; Z79.85 Long-term (current) use of injectable non-insulin antidiabetic drugs; Z79.84 Long term (current) use of oral hypoglycemic drugs; Z79.899 Other long term (current) drug therapy
CPT/HCPCS: 50590; 74018; 82947; J0131; J0690; J2704; J3010

== ENCOUNTER 2024-02-18 15:44 | Outpatient (AMB) | payer BC, SELFPAY ==
--- NOTE | 2024-02-18 14:46 | A.OFFVIS_ITS ---
Intake Visit Reasons: ESWL- follow up/US Intake Note: Patient presents today for a follow-up after surgery ESWL & US Results: Meds- Pyridium & Tamsulosin Allergies to Antibiotic- No Known Allergies Blood Thinner- None Theatrical Trouper Required: No Accompanied by: Self / Same As Patient Allergies No Known Allergies Allergy (Verified 01/09/24 07:17) HPI Comments Details: 02/18/24--Julien is followed for left nephrolithiasis, he was initially evaluated and treated in Sep, this year, for a 1.3 cm left obstructing stone with stent placement followed by Left ESWL and stent removal. FU renal US 11/07/23 indicated a 6 mm fragment in the left lower pole. He was scheduled for repeat left ESWL with me on--01/09/24, however KUB Xray prior to procedure and simulation intra op with Fluoro and ultrasound failed to identify remainging fragment. He completed 24 hr urine which I have reviewed with him, notable for hypercalciuria, urine Ca - 344. urine Sodium was also elevated and low sodium diet was discussed. He is hydrating well and adding lemon to the water daily. Also reviewed stone analysis, Ca Ox. Will refer to Nephrology, fu in one year, CT stone protocol prior. Pt to cont vit B6 but may discontinue daily vit C. 30 minutes spent in review of records pertaining to this visit and including [id number] discussion with the patient and documentation of this visit. Review of chart: 11/16/23--Michele is a pleasant male. He is a patient of Dr. Garner. He seen for the following urologic conditions - nephrolithiasis 6 mm remnant stone on renal ultrasound Has had occasional symptoms Would like to move ahead with left ESWL repeat Nephrolithiasis Background diabetes Imaging - CT 1.3cm stone left UPJ Intervention - stent placement with left ESWL Therapeutic plan - encourage fluids, lemon juice, vitamin B6 [facility] Medical History Renal calculi Hyperlipidemia Hypertension Diabetes type 2, controlled Surgical History Hx of lithotripsy H/O shoulder surgery History of right shoulder replacement Hx of knee surgery Social History Household Members: Spouse Housing: House Do you presently have visiting nurse or other home services: No Patient Tobacco Use Status: Never used Tobacco service: No Review of Systems Const All systems reviewed & are unremarkable except as noted in HPI and below Reports no additional complaints Eyes Reports no additional complaints ENT Reports no additional complaints Card Reports no additional complaints Resp Reports no additional complaints GI Reports no additional complaints Reports as per HPI Musc Reports no additional complaints Skin/Breast Reports system reviewed and no additional complaints, except as documented Neuro Reports no additional complaints Psych Reports no additional complaints Endo Reports no additional complaints Live/Lymph Reports no additional complaints Aller/Immun Reports no additional complaints Results Reviewed Results Reviewed: ADAM: 11/16/23 STATUS: COMP REQ : [id number] RECD: 11/19/[address]: Wm Tovar MD COMP: 11/27/23 ENTERED: 11/19/[address]: SILVA GARNER QUICK SERVICE TECHNICIAN ORDERED: Kidney Stone QUERIES: Kidney Stone Source: [id number] Test Result Flag Reference Component 1 SEE NOTE Calcium Oxalate Dihydrate (Wedd[place]) 20% Calcium Oxalate Monohydrate ([place]) 80% See Note 1 Stone Weight 0.135 g Note 1 This test was developed and its analytical performance characteristics have been determined by [facility]. It has not been cleared or approved by the FDA. This assay has been validated pursuant to the CLIA regulations and is used for clinical purposes. THIS TEST WAS PERFORMED AT: [facility] [address] [address] WILLIAM VÁSQUEZ MD Stone Source KIDNEY STONE Date of Service: 01/09/24 EXAMINATION: XR ABDOMEN KUB CLINICAL INDICATION: Left kidney stones COMPARISON: KUB on 09/26/2023 TECHNIQUE: AP view of the abdomen. FINDINGS: AP supine x-rays of the abdomen show nonspecific bowel gas pattern. No abnormal bowel dilatation is seen. There is normal visualization of rectal bowel gas. Bilateral kidneys are partially obscured by overlying colon bowel gas and fecal shadows especially in descending colon. No abnormal calcification could be seen. IMPRESSION: 1. Interval resolution of left lower pole renal calculus and removal of left ureteric double pigtail stent. No radiopaque renal stone could be seen on the current examination limited by overlapping bowel gas and fecal shadows. 2. No signs of intestinal obstruction on supine x-rays. Date of Service: 11/07/23 EXAMINATION: US RETROPERITONEAL LIMITED (RENAL ONLY) CLINICAL INFORMATION: Obstructed reflux uropathy.. COMPARISON: None available. TECHNIQUE: Retroperitoneal ultrasound was performed FINDINGS: RIGHT KIDNEY: 12.5 x 7.2 x 7.0 cm (SAG x AP x TRV). The kidney is normal in size, contour, and echogenicity. Renal cortical thickness is normal. No calculi or focal parenchymal lesions. There is mild peripelvic prominence versus caliectasis in lower pole. LEFT KIDNEY: 12.2 x 6.7 x 5.8 cm (SAG x AP x TRV). The kidney is normal in size, contour, and echogenicity. Renal cortical thickness is normal. No calculi or focal parenchymal lesions. No hydronephrosis. There is anechoic cyst in midpole measuring 0.7 x 0.9 x 0.7 cm. There is an echogenic stone in lower pole measuring 0.7 x 0.7 x 0.8 cm. IMPRESSION: 1. There is an anechoic cyst midpole left kidney. 2. There is an echogenic stone lower pole left kidney without caliectasis or hydronephrosis. 3. There is mild peripelvic calyceal versus caliectasis in the lower pole right kidney. Date of Service: 09/26/23 XR ABDOMEN KUB CLINICAL INDICATION: Left-sided renal stone COMPARISON: None available. TECHNIQUE: AP view of the abdomen. FINDINGS: There is scattered stool and gas seen in the colon without any significant distention. There is a 1.1 cm stone left lower pole kidney. There is a left ureteral stent in place. There is no organomegaly. There is moderate spondylosis L1-L2 and mild spondylosis L3-L4 and L4-L5 disc levels. IMPRESSION: 1. 1.1 cm stone left lower pole kidney. 2. Left ureteral stent is in place. 3. Mild constipation. Date of Service: 09/17/23 EXAMINATION: CT ABDOMEN AND PELVIS WITHOUT CONTRAST CLINICAL INFORMATION: left flank pain. COMPARISON: No pertinent prior studies are available for comparison. TECHNIQUE: Multidetector volumetric imaging was performed from the superior aspect of the liver through the pubic symphysis without contrast per renal stone protocol. Sagittal and coronal reformatted images were obtained on the technologist workstation. This CT examination was performed using dose optimization techniques as appropriate, variously including the following: *Automated exposure control *Adjustment of mA and/or kV according to patient size (this includes techniques or standardized protocols for targeted exams where dose is matched to indication/reason for exam; i.e. extremities or head) *Use of iterative reconstruction technique DLP: 760 mGy-cm. FINDINGS: LUNG BASES: The visualized lung bases are unremarkable. Prominent coronary artery calcification LIVER, GALLBLADDER, BILIARY TREE: The non-contrast liver is normal in size, shape, and attenuation. No focal hepatic lesion or biliary ductal dilatation is present. The gallbladder is unremarkable with no evidence of radiopaque gallstones, gallbladder wall thickening, or obvious pericholecystic inflammatory changes. PANCREAS: Unremarkable. SPLEEN: Unremarkable. ADRENAL GLANDS: Unremarkable. KIDNEYS AND URETERS: Mild hydronephrosis to the left kidney extending up to a 1.3 cm calcification at the left ureteropelvic junction. The ureter distal to this however is also distended up to one another 0.4 cm calculi at the left ureterovesicular junction. I do not appreciate any obstructive changes to the contralateral right kidney however there is a tiny punctate 2 mm calcification at the contralateral right ureteral vesicular junction as well. BLADDER: In addition to the calculi at the bilateral ureterovesicular junction there is an additional tiny 2 mm calcification within the posterior bladder lumen on the right GASTROINTESTINAL TRACT: Colonic diverticulosis more so in the sigmoid colon. I do not appreciate any colonic wall thickening or pericolonic inflammatory change to suggest diverticulitis. Small bowel unremarkable ABDOMINAL WALL: Small fat-containing umbilical hernia LYMPHOVASCULAR STRUCTURES: Prominent vascular calcification within the aorta iliac system. No bulky adenopathy. PELVIC VISCERA: Unremarkable. OSSEUS STRUCTURES: Multilevel degenerative changes in the spine and hips IMPRESSION: Left-sided hydronephrosis and hydroureter extending up to both a 1.3 cm calcification at the left ureteropelvic junction as well as also a 0.4 cm calcification at the left ureterovesicular junction. There is a tiny punctate 2 mm calcification at the contralateral right ureterovesicular junction as well. 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 The patient expressed understanding and agreement with the above treatment plan. The patient is aware they should contact our office by phone for worsening of their current condition or the appearance of new symptoms. Compliance is encouraged with any medications and followup testing that is ordered. It is a privilege to be allowed the opportunity to participate in the urologic care of your patient. If you have any questions or concerns regarding treatment for the above conditions please do not hesitate to contact me. The office telephone contact is [phone]. This note is constructed in part using voice recognition software. While every effort has been made to ensure accuracy trust vault custodian errors may have been included. Yours sincerely, Ryan Prince MD Coding Level of Care Code Est Pt Level 4 (09504) Diagnoses Nephrolithiasis N20.0 Hypercalciuria R82.994
== END 2024-02-18 16:13 | disposition home or self-care (01) ==
PROVIDERS: PCP Nurse Practitioner Family; Visit Provider Urology
DX: N20.0 Calculus of kidney (principal); R82.994 Hypercalciuria
CPT/HCPCS: 99214

== ENCOUNTER → 2024-02-18 15:44 | Outpatient (BNVA) | payer BC, SELFPAY | PROVIDERS: PCP Nurse Practitioner Family; Visit Provider Urology ==

== ENCOUNTER 2024-03-06 13:34 | Outpatient (AMB) | payer BC, SELFPAY ==
[2024-03-06 13:35] VITALS: BP 120/72; PULSE 93; O2SAT 96; BMI 28.6
--- NOTE | 2024-03-06 13:35 | HO.NEPHOV ---
Vital Signs 03/06/24 13:35 Height 6 ft Weight 211 lb BMI 28.6 BP 120/72 Blood Pressure Location Lt brachial Position Sitting Pulse 93 Pulse Source Pulse Oximeter Pulse Oximetry (%) 96 Oxygen Delivery Method Room Air Intake Visit Reasons: Hypercalciuria /Calculus of kidney/ Conf Carton Forming Machine Helper Required: No Accompanied by: Self / Same As Patient Allergies No Known Allergies Allergy (Verified 03/06/24 13:40) HPI Comments Details: . Michele is a pleasant 64-year-old man with a history of diabetes mellitus. He was on metformin and glyburide in the past later switched to Trulicity. Currently he is on Ozempic. In September of 2023 he had severe flank pain and was found to have a left renal stone with left hydronephrosis. He underwent a cystoscopy with stent placement and subsequently underwent ESWL and stent removal. 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 Has a history of hypertension and blood pressure has been well controlled with amlodipine 5 mg a day. All the lab data from [facility] and [facility] was reviewed. Renal function has been stable with a creatinine of 0.8 mg/dL. No documented hypercalcemia. [facility] Medical History (Updated 03/06/24 @ 14:24 by Cody Duncan MD) Renal calculi Hyperlipidemia Hypertension Diabetes type 2, controlled Surgical History Hx of lithotripsy H/O shoulder surgery History of right shoulder replacement Hx of knee surgery Social History Household Members: Spouse Housing: House Do you presently have visiting nurse or other home services: No Patient Tobacco Use Status: Never used Tobacco service: No Review of Systems Const Denies fever(s) Card Denies chest pain Resp Denies cough and Denies hemoptysis GI Denies abdominal pain, Denies diarrhea and Denies nausea Musc Denies back pain Neuro Denies focal weakness Physical Exam Vital Signs: Last Vital Signs Pulse 93 03/06/24 13:35 BP 120/72 03/06/24 13:35 Pulse Ox 96 03/06/24 13:35 Oxygen Delivery Method Room Air 03/06/24 13:35 BMI result Body Mass Index 28.6 Const General: comfortable; No acute distress Orientation/consciousness: patient oriented x3 Eyes General: appearance normal, both eyes and all related structures Visual Lubin: normal visual lubin by confrontation Neck Neck: Yes supple and Yes no JVD Resp Effort & Inspection: normal respiratory effort and respiratory effort not decreased Auscultation: rhonchi Cardio Palpation: no palpable S3 and no palpable S4 Heart sounds: no rubs GI Inspection: Yes normal to inspection Palpation (GI): Soft to palpation Percussion: Yes normal to percussion Auscultation: normal bowel sounds General: Yes no CVA tenderness Back/Spine/Pelvis Back: no CVA tenderness Skin General skin exam: no petechiae and no purpura Neuro General: patient oriented x3 and no focal motor deficits Extrem General: No clubbing and No edema Results Reviewed Nephrology Results: Hgb 15.7 g/dl (14.0-18.0) 09/17/23 WBC 13.2 X10*3/uL (4.8-10.8) H 09/17/23 Plt Count 272 X10*3/uL (160-400) 09/17/23 Sodium 138 mmol/L (135-145) 09/17/23 Potassium 4.1 mmol/L (3.3-5.1) 09/17/23 Chloride 102 mmol/L (96-108) 09/17/23 Carbon Dioxide 28 mmol/L (22-29) 09/17/23 BUN 15 mg/dL (9-16) 09/17/23 Creatinine 0.87 mg/dL (0.5-1.4) 09/17/23 Calcium 9.9 mg/dL (8.4-10.2) 09/17/23 Urine Protein Negative mg/dL (Neg-Trace) 09/17/23 Renal US 11/07/23 Assessment & Plan Assessment & Plan (1) Nephrolithiasis: Comment: Twenty-four urine collection revealed : volume of 4900 cc. Hypercalciuria. 344 mg Urine sodium excretion was also elevated at 205 Code(s): N20.0 - Calculus of kidney Category: Medical Plan: Recent ultrasonogram did not reveal any renal stones. He should stay on a 2 g sodium diet. Maintain urine output of at least 2 L per 24 hours. Repeat 24 urine collection to quantify the urine sodium and calcium. Check intact PTH and vitamin-D levels along with serum calcium. If he continues to have hypercalciuria I will consider adding hydrochlorothiazide to decrease urinary calcium excretion. (2) Hypercalciuria: Code(s): R82.994 - Hypercalciuria Category: Medical Plan: Workup as outlined above (3) Hypertension: Code(s): I10 - Essential (primary) hypertension Category: Medical Plan: Today blood pressure is well controlled. However if we had hydrochlorothiazide in future we might have to taper and discontinue Norvasc as directed by the blood pressure. Orders: Orders Calcium, 24 Hr Ur Today N20.0 - Calculus of kidney, R82.994 - Hypercalciuria Citric Acid 24hr Urine Today N20.0 - Calculus of kidney, R82.994 - Hypercalciuria UA and rflx microscopic Today N20.0 - Calculus of kidney, R82.994 - Hypercalciuria Phosphorus Today N20.0 - Calculus of kidney, R82.994 - Hypercalciuria Sodium, 24Hr Urine Group Today N20.0 - Calculus of kidney, R82.994 - Hypercalciuria Creatinine, 24 Hr Group Today N20.0 - Calculus of kidney, R82.994 - Hypercalciuria Oxalate, 24 Hr Today N20.0 - Calculus of kidney, R82.994 - Hypercalciuria Uric Acid, 24Hr Urine Group Today N20.0 - Calculus of kidney, R82.994 - Hypercalciuria Basic Metabolic Panel Today N20.0 - Calculus of kidney, R82.994 - Hypercalciuria Parathyroid Hormone Intact Today N20.0 - Calculus of kidney, R82.994 - Hypercalciuria Vitamin D 25-OH (D2 and D3) Today N20.0 - Calculus of kidney, R82.994 - Hypercalciuria Uric Acid Today N20.0 - Calculus of kidney, R82.994 - Hypercalciuria Coding Level of Care Code New Pt Level 4 (13731) Diagnoses Nephrolithiasis N20.0 Hypercalciuria R82.994 Hypertension I10
== END 2024-03-06 14:16 | disposition home or self-care (01) ==
PROVIDERS: PCP Family Medicine; Referring Provider Urology; Visit Provider Internal Medicine Hypertension Specialist
DX: N20.0 Calculus of kidney (principal); R82.994 Hypercalciuria; I10 Essential (primary) hypertension
CPT/HCPCS: 99204

== ENCOUNTER → 2024-03-06 13:34 | Outpatient (BNVA) | payer BC, SELFPAY | PROVIDERS: PCP Nurse Practitioner Family; Referring Provider Urology; Visit Provider Internal Medicine Hypertension Specialist ==

== ENCOUNTER 2024-03-18 14:18 | Outpatient (AMB) | payer BC, SELFPAY ==
[2024-03-18 14:18] VITALS: BP 112/66; PULSE 92; O2SAT 97; BMI 28.7
--- NOTE | 2024-03-18 14:18 | HO.NEPHOV_ITS ---
Vital Signs 03/18/24 14:18 Height 6 ft Weight 212 lb BMI 28.7 BP 112/66 Blood Pressure Location Lt brachial Position Sitting Pulse 92 Pulse Source Pulse Oximeter Pulse Oximetry (%) 97 Oxygen Delivery Method Room Air Intake Visit Reasons: Hypercalciuria/ Conf Size Tester Required: No Accompanied by: Self / Same As Patient Allergies No Known Allergies Allergy (Verified 03/18/24 14:19) HPI Comments Details: . Michele is a pleasant 64-year-old man with a history of diabetes mellitus. He was on metformin and glyburide in the past later switched to Trulicity. Currently he is on Ozempic. In September of 2023 he had severe flank pain and was found to have a left renal s tone with left hydronephrosis. He underwent a cystoscopy with stent placement and subsequently underwent ESWL and stent removal. 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 Has a history of hypertension and blood pressure has been well controlled with amlodipine 5 mg a day. All the lab data from [facility] and [facility] was reviewed. Renal function has been stable with a creatinine of 0.8 mg/dL. No documented hypercalcemia. [facility] Medical History Renal calculi Hyperlipidemia Hypertension Diabetes type 2, controlled Surgical History Hx of lithotripsy H/O shoulder surgery History of right shoulder replacement Hx of knee surgery Social History Household Members: Spouse Housing: House Do you presently have visiting nurse or other home services: No Patient Tobacco Use Status: Never used Tobacco service: No Physical Exam Vital Signs: Last Vital Signs Pulse 92 03/18/24 14:18 BP 112/66 03/18/24 14:18 Pulse Ox 97 03/18/24 14:18 Oxygen Delivery Method Room Air 03/18/24 14:18 BMI result Body Mass Index 28.7 Const General: comfortable; No acute distress Orientation/consciousness: patient oriented x3 Eyes General: appearance normal, both eyes and all related structures Visual Su: normal visual su by confrontation Neck Neck: Yes supple and Yes no JVD Resp Effort & Inspection: normal respiratory effort and respiratory effort not decreased Auscultation: rhonchi Cardio Palpation: no palpable S3 and no palpable S4 Heart sounds: no rubs GI Inspection: Yes normal to inspection Palpation (GI): Soft to palpation Percussion: Yes normal to percussion Auscultation: normal bowel sounds General: Yes no CVA tenderness Back/Spine/Pelvis Back: no CVA tenderness Skin General skin exam: no petechiae and no purpura Neuro General: patient oriented x3 and no focal motor deficits Extrem General: No clubbing and No edema Results Reviewed Results Reviewed: 24 hr urine Volume 3000 Na 98 Tucker 295 Nephrology Results: Renal US 11/07/23 Assessment & Plan Assessment & Plan (1) Nephrolithiasis: Code(s): N20.0 - Calculus of kidney Category: Medical Plan: Recent ultrasonogram did not reveal any renal stones. He should stay on a 2 g sodium diet. Maintain urine output of at least 2 L per 24 hours. Repeat 24 hr urine showed a Sodium excretion of 98 and NORMAL calcium excretion NO need for HCTZ (2) Hypercalciuria: Code(s): R82.994 - Hypercalciuria Category: Medical Plan: Resolved (3) Hypertension: Code(s): I10 - Essential (primary) hypertension Category: Medical Plan: Today blood pressure is well controlled. NO changes in Medications Coding Level of Care Code Est Pt Level 3 (10248) Diagnoses Nephrolithiasis N20.0 Hypercalciuria R82.994 Hypertension I10
== END 2024-03-18 16:00 ==
PROVIDERS: PCP Family Medicine; Visit Provider Internal Medicine Hypertension Specialist
DX: N20.0 Calculus of kidney (principal); R82.994 Hypercalciuria; I10 Essential (primary) hypertension
CPT/HCPCS: 99213

== ENCOUNTER → 2024-03-18 14:18 | Outpatient (BNVA) | payer BC, SELFPAY | PROVIDERS: PCP Family Medicine; Visit Provider Internal Medicine Hypertension Specialist ==

== ENCOUNTER 2024-08-28 08:00 | Outpatient (RCR) | payer BC, SELFPAY ==
--- NOTE | 2024-06-26 15:21 | MHC.PT.EP ---
[facility] [place] [facility] [place] Office [place] [facility] [address] Angelica Kerr [address] [phone] F: [phone] F: [phone] F: [phone] F: [phone] Physical Therapy Plan of Care Date of Evaluation: 06/26/24 Date of Surgery: Diagnosis: LEFT FOOT DROP Assessment: 64 YO MALE REF TO PT FOR Lt FOOT DROP- HE NOTES PROGRESSIVE ONSET x 1 YR, HOWEVER CURRENTLY, Pt HAS BEEN MORE CONSCIOUS OF Lt FOOT SXS AND FEELS IT HAS IMPROVED. OF SIGNIFICANCE, THE Pt HAS A H/O SEVERE PES PLANUS- HE RECENTLY OBTAINED CUSTOM ORTHOTICS. OBJECTIVELY, THE Pt HAS (+) LUMBOPELVIC ASYMM W LLI EFFECT (Lt LE ACTING LONGER); DECR MOBILITY IN FARNAZ HIPS AND ANKLES, (+) COLLAPSE OF LONGITUDINAL ARCH AND UNSTABLE SUBTALAR AND TALONAVICULAR JtS, W RIGID MID-FOOT. FUNCTIONALLY, THE Pt HAS COMPENSATORY GAIT ACCOMODATING PES PLANUS, DECR MAXIMILIANO TO PROLONGED STANDING, WALKING, JUMPING, RUNNING, AND FULL SQUATTING. THE Pt IS MOTIVATED FOR PT, WE DISCUSSED THE POC, PT EVAL FINDINGS, AND Pt IS IN AGREEMENT. Frequency and Duration: The patient will be seen 2 x WK x 5 WKS Short Term Goals: *INITIATE HEP-> LUMBOPELVIC STAB, STRETCHING, SELF-STM *INCREASE HIP AND ANKLE FLEXIBILITY *IMPROVE ACTIVATION OF FOOT INTRINSIC MM *ADDRESS COMPENSATORY GAIT Marine Fire Fighter Goals: *Pt DEMON EFFICIENT GAIT MECH ON LEVEL GROUND AND STAIRS *IMPROVE FUNCTIONAL MOB MAXIMILIANO EVIDENT W IMPROVED LEFI (AT EVAL 70/80) *Pt INCREASE STRENGTH IN FARNAZ LEs AND LUMBOPELVIC REGION W EVIDENT REDUCTION IN LLI EFFECT *IMPROVED STANDING BAL-> SLS (AT EVAL 2-3 SEC, BAREFOOT AND W SHOES) Treatment Plan: Modalities to reduce pain, spasms and effusion. Manual therapy to restore motion and function. Therapeutic exercise to improve strength and flexibility. Neuromuscular re-education for posture and balance. Therapeutic activities to return to functional activities of daily living. Electronically signed by: JULIANA ROMANO,PT Please sign and return to therapist. Thank you for your referral.
== END 2024-09-24 07:26 | disposition home or self-care (01) ==
LOC: HO.PT 08:00
PROVIDERS: PCP Family Medicine; Visit Provider Podiatrist
DX: M21.372 Foot drop, left foot (principal)
CPT/HCPCS: 97110; 97112; 97162

== ENCOUNTER 2024-12-18 14:52 | Outpatient (REF) | payer BC, SELFPAY ==
--- NOTE | ~2024-12-18 | CT_ITS ---
CLINICAL HISTORY: N20.0 - Calculus of kidney N20.0 - Calculus of kidney; Additional Information:-535 mGycm N20.0 - Calculus of kidney CT abdomen and pelvis without contrast Comparison: CT/SD/SR - CT ABDOMEN PELVIS WO IV CON - 09/17/23 17:29 EST Findings: No consolidation or effusion. The previous left-sided proximal ureteral calculus is now present within the bladder. There is no additional renal calculus bilaterally. Small left cortical cyst and bilateral peripelvic cysts are noted. The unenhanced liver, gallbladder, spleen, adrenal glands and pancreas are unremarkable. Moderate diffuse atherosclerotic disease. Diverticulosis without evidence of diverticulitis. There is fecal retention throughout the colon. No small bowel obstruction, free air or abscess. There is multilevel degenerative change most pronounced at L5-S1. No acute osseous finding. Impression: The previously seen proximal left ureteral calculus is currently within the bladder. No additional urinary calculus identified. Peripelvic cysts are present versus less likely fullness of the collecting system. Incidental findings as detailed. This document has been electronically signed by: Lam Padron MD on 12/20/2024 10:29:10
--- OUTSIDE RECORDS SUMMARY | 2024-12-18 17:30 | XMS_ITS ---
Author Organization [facility] Sudha leonardo [place] Address [address] [facility] [place] [address] Care Team Providers Care Bar Pointer Name Role Phone Donna Pk Primary Care Provider Darvin Verduzco Unavailable [phone] Allergies No Known Allergies Medications Medication SIG (Take, Route, Frequency, Duration) Notes Start Date End Date Status Trulicity 1.5 MG/0.5ML as directed Subcutaneous Not-Taking metFORMIN HCl 500 MG 1 tablet with a darshan l Orally Once a day for 30 day(s) Active glyBURIDE 2.5 MG 1 tablet with breakf ast or the first main meal of the day Orally Once a day for 30 day(s) Not-Taking Extra Depth Diabetic Shoes with 3 Pair Custom heat-molded multi-density innersoles for 1 year Dx: A ctive Ciclopirox Olamine 0.77 % 1 application to affected area Externally Twice a day to effected areas on feet for 30 days Active Ozempic Active Physical Therapy . . . 2-3x/week for 3- 4 weeks 03/12/2024 Active Atorvastatin Calcium 40 MG 1 tablet Orally Once a day for 30 day(s) Active amLODIPine Besylate 5 MG 1 tablet Orally Once a day for 30 day(s) Active Social History Tobacco Use: Social History Observation Description Date Details (start date - stop date) Never Smoker NA - NA Tobacco Use/Smoking Question Answer Notes Are you a: nonsmoker Additional Findings: Tobacco Non-User Current no n-smoker Alcohol Screen Question Answer Notes Did you have a drink containing alcohol in the p ast year? Yes Points 0 Interpretation Negative Tobacco use other than smoking: Question Answer Notes Are you an other tobacco user? No Vital Signs Height 6 ft in 03/12/2024 Weight 225 lbs 03/12/2024 BMI 30.51 kg/m2 03/12/2024 Encounters Encounter Location Date Provider Diagnosis [facility] [place] [address] [place] [address] 03/12/2024 Darvin Hernández Type 2 diabetes mellitus with diabetic polyneuropathy E11.42 ; Primary osteoarthritis, left ankle and foot M19.072 ; Primary osteoarthritis, right ankle and foot M19.071 ; Tinea pedis B35.3 and Left foot drop M21.372 Assessments Encounter Date Diagnosis (ICD Code) Assessment Notes Treatment Notes Treatment Clinical Notes Section Notes 03/12/2024 Type 2 diabetes mellitus with diabetic polyneuropathy (ICD-10 - E11.42) 03/12/2024 Primary osteoarthritis, left ankle and foot (ICD-10 - M19.072) 03/12/2024 Primary osteoarthritis, right ankle and foot (ICD-10 - M19.071) 03/12/2024 Tinea pedis (ICD-10 - B35.3) 03/12/2024 Left foot drop (ICD-10 - M21.372) Plan Of Treatment Medication Medication Name Sig Start Date Stop Date Notes Extra Depth Diabetic Shoes with 3 Pair Custom heat-molded multi-density innersoles for 1 year Dx: Ciclopirox Olamine 0.77 % 1 application to affected area Externally Twice a day to effected areas on feet for 30 days Physical Therapy . . . 2-3x/week for 3-4 weeks 03/12/2024 Next Appt Details Follow Up: 1 Year, Reason: Provider Name:Roberto Crandall , 03/17/2025 08:45:00 AM, [address] [place] [address], [address], Progress Notes * Julien HEIN BDOB: [birth year] (64 yo M)Acc No.[id number]:03/12/2024 Progress Note Patient:?Julien Hein Provider:?Darvin Hernández DPM :1960???Age:64 Y???Sex:Male Jayce e:03/12/2024 Address:[address] [place] [address], [id number] Pcp:Pk Thompson Subjective: * Chief Complaints: * ??? * HPI: ???At Risk footcare:?Pt States Last PCP Visit:?Date?2024 ???Foot Pain:?Nature:?aching, swelling; dropfoot left within past several months.?Location?Bottom, Midfoot, Rearfoot, B/L, R>L.?Duration:?several years.?Onset/Cause:?DPN.?Course:?improved.?Aggrevated:?standing, walking, barefoot walking.?Treatments:?dm inserts and shoes.? * ROS:?General/Constitutional:?Nausea?denies, denies.?Vomiting?denies, denies.?Hunger Thirst?denies, denies.?Loss appetite?denies, denies.?Chills?denies, denies.?Fatigue?denies, denies.?Fever?denies, denies.?Night Sweats denies, denies.?Unexplained weight loss?denies, denies.?Unexplained weight gain?denies.?Ophthalmologic:?Blurred vision?denies.?Red eye?denies.?HEENTM:?Dentures?denies, denies.?Dizziness?denies, denies.?Glasses/contacts?admits, denies.?Retinopathy?denies, denies.?Blurred/double vision?denies, denies.?TMJ?denies, denies.?Discharge/drainage?denies, denies.?Implants?denies, denies.?Sore throat?denies.?Dental implants?denies.?Hard of hearing ?denies, denies.?Difficulty chewing/swallowing/speaking?denies, denies.?Nose bleeds?denies, denies.?Sore mouth?denies, denies.?Swollen glands?denies.?Respiratory:?On Oxygen?denies, denies.?Pneumonia/pleurisy?denies, denies.?Bronchitis?denies, denies.?Emphysema?denies, denies.?Coughing?denies, denies.?Cough blood?denies, denies.?Shortness of breath?denies, denies.?Wheezing?denies, denies.?Cardiovascular:?Pacemaker?denies, denies.?MVP?denies, denies.?WPW?denies, denies.?CHF?denies, denies.?Heart attack?denies, denies.?Septal defect?denies, denies.?Rapid beat?denies, denies.?Chest pain ?denies, denies.?Atrial Fib.?denies, denies.?Murmur/Palpitations?denies, denies.?Gastrointestinal:?Hemorrhoids?denies, denies.?Stomach/Abdominal pain?denies, denies.?Dark blood stool?denies, denies.?Irritable bowel ?denies, denies.?Constipation?denies, denies.?Diarrhea?denies, denies.?Vomiting?denies.?Hematology:?Swelling?denies, denies.?Clots?denies.?Varicose Veins?denies.?Bruising?denies, denies.?Bleeding problem?denies, denies.?Genitourinary:?Blood urine?denies, denies.?Frequent/Painfu/urination/bladder control?denies, denies.?Kidney stones?denies, denies.?Infection (UTI)?denies, denies.?Nephropathy?denies, denies.?sex trans dis (STD)?denies.?Prostate?denies.?Musculoskeletal:?Hammertoes?denies, denies.?Bunions?denies, denies.?Scoliosis/kyphosis?denies.?Back Pain?denies.?Muscle Cramps/ Resting?denies.?Muscle cramps / walking?denies, denies.?Generalized aches and pains?denies, denies.?Weakness?denies, denies.?Integ.:?Sandhu?denies, denies.?Scars?admits, denies.?Corns/calluses?denies, denies.?Ingrown nails?denies, denies.?Painful nails?denies, denies.?Open Sores?denies.?Rashes?denies, denies.?Neurologic:?Difficulty sleeping?denies, denies.?Bipolar?denies.?Brain disorder?denies, denies.?Numbness?denies.?Balance trouble?denies, denies.?Confusion?denies, denies.?Fainting/blackouts?denies, denies.?Headache?denies.?Tingling?denies.?Tremors?denies, denies.? * Medical History:? * Surgical History:?knee surge ry, left 1974, 2011knee surgery, right 1975, 2013shoulder dislocation 1977, 1980shoulder replacement 2017 carpal tunnel both hands 01-07-22 * Hospitalization/Major Diagno stic Procedure:?Denies Past Hospitalization * Family History:?Mother: dece ased, diagnosed with Other malignant neoplasm of unspecified site.?Father: .? * Social History:?Tobacco Use:?Tobacco Use/Smoking?Are you a:?nonsmoker ?Additional Findings: Tobacco Non-User?Current non-smoker ?Tobacco use other than smoking?Are you an other tobacco user??No ???Drugs/Alcohol:?Drugs?Have you used drugs other than those for medical reasons in the past 12 months??No ?Alcohol Screen?Did you have a drink containing alcohol in the past year??Yes ?Points?0 ?Interpretation?Negative ???Miscellaneous:?Caffeine: yes, frequency:, 1-2 cups per day. ?no Children. ?Exercise: Golf, Walking. ?Marital status: . 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 * Medications:?TakingOzempic E xtra Depth Diabetic Shoes with 3 Pair Custom heat- molded multi-density innersoles for 1 year Dx:Ciclopirox Olamine 0.77 % Cream 1 application to affected area Externally Twice a day to effected areas on feetamLODIPine Besylate 5 MG Tablet 1 tablet Orally Once a dayAtorvastatin Calcium 40 MG Tablet 1 tablet Orally Once a daymetFORMIN HCl 500 MG Tablet 1 tablet with a meal Orally Once a dayTaking Ozempic Taking Extra Depth Diabetic Shoes with 3 Pair Custom heat- molded multi-density innersoles for 1 year Dx:Taking Ciclopirox Olamine 0.77 % Cream 1 application to affected area Externally Twice a day to effected areas on feetTaking amLODIPine Besylate 5 MG Tablet 1 tablet Orally Once a dayTaking Atorvastatin Calcium 40 MG Tablet 1 tablet Orally Once a dayTaking metFORMIN HCl 500 MG Tablet 1 tablet with a meal Orally Once a dayNot-Taking/PRNglyBURIDE 2.5 MG Tablet 1 tablet with breakfast or the first main meal of the day Orally Once a dayTrulicity 1.5 MG/0.5ML Solution Pen-injector as directed Subcutaneous Medication List reviewed and reconciled with the patientNot-Taking/PRN glyBURIDE 2.5 MG Tablet 1 tablet with breakfast or the first main meal of the day Orally Once a dayNot-Taking/PRN Trulicity 1.5 MG/0.5ML Solution Pen-injector as directed Subcutaneous Medication List reviewed and reconciled with the patient * Allergies:?N.K.D.A.yes[Aller gies Verified] Objective: * Vitals:?Ht: 6 ft, Wt:225, BM I:30.51, Shoe size:11.5-12, BS:188. * ???Past Orders: ???Lab:HEMOGLOBIN A1C (GLYCO HEMOGLOBIN) (Order Date - 03/12/2024) (Collection Date - 02/12/2024) ? Value Reference Range ?HEMOGLOBIN A1C % (HH) 6.9 * Examination: ???Neurological: ?SENSORY:? Neurological exam demonstrates, reduced vibration sensation, 5.07 monofilament test performed at plantar aspects of 5 varied sites per foot shows sensation, reduced , at Forefoot, B/L; loss of stregth left leg anterior muscles--pt unable to df vs resisitance.?TINEL'S COMPRESSION:?Negative tarsal tunnel, elis pedis, and medial calcaneal nerves B/L.?BABINSKI REFLEX:?absent.?Vascular: ?DP PULSES:? 2/4, B/L.?PT PULSES:? 2/4, B/L.?CAPILLARY FILL TIME:?3 secs. per digit, B/L.?SKIN TEMPERTURE GRADIENT OF THE LOWER EXTERMITIES:?warm to cool, proximal to distal, B/L.?HAIR GROWTH/TEXTURE/ELASTICITY/TURGOR:?normal, B/L.?PIGMENTATION:?normal, B/L.?EDEMA:?no edema.?TELANGECTASIA:?absent.?VARICOSITIES:?absent.?Dermatologic: ?SKIN FINDINGS:? Skin shows sign(s) of, erythema, scaling, in a moccasin fashion, no fissure(s) present, B/L.?General Examination: ?GENERAL APPEARANCE:?pleasant, alert, well nourished, well developed, well hydrated, with good attention to hygene/body habitus, and in no acute distress.?ORIENTED:?person,place, and time.?FOOT EXAM:?Lower Extremity Neurological Exam performed:?Yes ?Visual exam of foot performed:?Yes ?Date?03/12/2024 ?Sensory testing performed:?sensations diminished ?Pedal pulse taking performed:?2+?Neuroma Pain: ?PALPATION:?No interspace pain noted on palpation.?Orthopedic: ?MUSCLE STRENGTH:?5/5 all groups in a symmetrical fashion , B/L.?GAIT ABNORMALITY:?pronated, abducted, B/L.? Assessment: * Assessment: 1.?Primary osteoarthritis, l eft ankle and foot - M19.072?2.?Type 2 diabetes mellitus with diabetic polyneuropathy - E11.42 (Primary)?3.?Primary osteoarthritis, right ankle and foot - M19.071?4.?Tinea pedis - B35.3?5.?Left foot drop - M21.372? Plan: * Treatment: 2.?Tinea pedis? Start Ciclopirox Olamine Cream, 0.77 %, 1 application to affected area, Externally, Twice a day to effected areas on feet, 30 days, 90, Refills 2.?? 3.?Left foot drop? Start Physical Therapy ., ., ., ., 2-3x/week, 3-4 weeks, Dx:, Refills ..?? * Procedure Codes:? * Preventive Medicine:? ??Counseling:?Discussion:?-14: Office or other outpatient visit for the evaluation and management of an established patient, which required a medically appropriate history and/or examination and MODERATE level of DECISION MAKING for: 1 OR MORE CHRONIC PROBLEM(S) THATS WORSENING, 2 STABLE CHRONIC PROBLEMS, A NEWLY DIAGNOSED PROBLEM WITH UNCERTAIN PROGNOSIS, AN ACUTE COMPLICATED INJURY WITH MULTIPLE TREATMENT OPTIONS, OR AN ACUTE PROBLEM WITH ACCOMPANYING SYSTEMIC SYMPTOMS, THAT POSE(S) A MODERATE RISK OF MORBIDITY. THIS CONDITION MAY ALSO INCLUDE RX DRUG MANAGEMENT, OR A DECISON FOR MINOR SURGERY. When using time for code selection, 30-39 min of total time was spent on the day of the encounter interpreting the data and educating the patient as to the nature of their condition, treatment options available according to their individual PMH, meds, allergies, and overall health/living conditions, as well as any potential risks or complications that may occur from a failure to adhere to, and participate in, the recommended course of therapy. The discussion included a complete verbal, and/or written explanation of the examination results, any x-rays taken, the proposed diagnosis, and outline of the treatment plan. A schedule for future care needs was also explained. The patient verbalized an understanding of the instructions at this time and agreed to be an active participant in their treatment. If the patient should think of any questions or concerns after the visit, I have encouraged the patient to call the office.? * Follow Up:?1 Year * Images: * Sign off status: Completed true * Provider:?Darvin Hernández DPM Date:? 024 Generated for [facility] singleton/Nicola/Donsmitting on:?12/18/2024 05:29 PM EDT History and Physical Notes * HPI (History of Present Illness) Category Sub-Category Detail Notes Category Not es At Risk footcare Pt States Last PCP Visit: Date: 4 Foot Pain Aggrevated: standing, walkin g, barefoot walking Onset/Cause: DPN Course: improved Duration: several years Nature: aching, swelling; opfoot left within past several months Treatments: dm inserts and shoes Location Bottom, Midfoot, [place] rfoot, B/L, R>L Examination Category Sub-Category Detail Notes Category Not es Neuroma Pain PALPATION: No interspace pain noted on palpation Neurological SENSORY: Neurological exa m demonstrates, reduced vibration sensation, 5.07 monofilament test performed at plantar aspects of 5 varied sites per foot shows sensation, reduced , at Forefoot, B/L; loss of stregth left leg anterior muscles--pt unable to df vs resisitance BABINSKI REFLEX: absent TINEL'S COMPRESSION: Negative tarsal martha yossi, elis pedis, and medial calcaneal nerves B/L Dermatologic SKIN FINDINGS: Skin shows sign( s) of, erythema, scaling, in a moccasin fashion, no fissure(s) present, B/L Orthopedic GAIT ABNORMALITY: pronated, abducted, B/L MUSCLE STRENGTH: 5/5 all groups in a symmetrical fashion , B/L General Examination GENERAL APPEARANCE: pleasant , alert, well nourished, well developed, well hydrated, with good attention to hygene/body habitus, and in no acute distress FOOT EXAM: Lower Extremity Neurological Exa m performed:: Yes Visual exam of foot performed:: Yes Date: 03/12/2024 Sensory testing performed:: sensations d iminished Pedal pulse taking performed:: 2+ ORIENTED: person,place, and ti me Vascular DP PULSES (B): 2/4, B/L PT PULSES (B): 2/4, B/L CAPILLARY FILL TIME: 3 secs. per digit, B/L TEMPERTURE GRADIENT (C): warm to cool, p roximal to distal, B/L TROPHIC CONDITION-TEXTURE/ELASTICITY/TURGOR/HAIR GROWTH (B): normal, B/L EDEMA (C): no edema TELANGECTASIA: absent VARICOSITIES: absent PIGMENTATION: normal, B/L
--- OUTSIDE RECORDS SUMMARY | 2024-12-18 17:30 | XMS_ITS ---
Author Organization [facility] Address [address] [place] [address] Care Team Providers Care Coupon Manifest Clerk Name Role Phone kP Thompson Primary Care Provider Darvin Verduzco [phone] Pretty Encounters Encounter Location Date Provider Diagnosis [address] [address] 03/06/2024 Darvin Hernández Plan Of Treatment Next Appt Details Provider Name:Roberto Ileana SorianoKarley , 03/17/2025 08:45:00 AM, [address] [place], [address], Progress Notes * Julien HEIN BDOB: [birth year] (64 yo M)Acc No.[id number]:03/06/2024 Progress Note Patient:?Julien HEIN Provider:Jillian Hernández DPM :1960???Age:64 Y???Sex:Male Jayce e:03/06/2024 Address: [id number] Pcp:Pk Thompson Subjective: * Chief Complaints: * ???1. Dr Pretty. * Medical History:? Objective: * Vitals:? Assessment: Plan: * Treatment: * Images: * The named appointment provid er may or may not be the originator of this progress note, and it is not deemed complete until electronically signed by the appointment provider. Sign off status: Pending * Provider:Jillian Hernández DPM Date:? 024 Generated for [facility] singleton/Nicola/Joshua on:?12/18/2024 05:29 PM EDT
--- OUTSIDE RECORDS SUMMARY | 2024-12-18 17:30 | XMS_ITS | Patient Health Record ---
Author Organization [facility] Address [address] [facility] [place] [address] Care Team Providers Care Weed Inspector Name Role Phone Pk Thompson Primary Care Provider Darvin Verduzco Unavailable [phone] Allergies No Known Allergies Results Component Value Reference Range Notes HEMOGLOBIN A1C (GLYCOHEMOGLO BIN) Reviewed date:03/12/2024 01:21:23 PM Interpretation: Performing Lab: Notes/Report: HEMOGLOBIN A1C % (HH) 6.9 Reason For Referral Diagnosis 1 Type 2 diabetes lowell itus with diabetic polyneuropathy (E11.42) Diagnosis 2 Primary osteoarthrit is, left ankle and foot (M19.072) Diagnosis 3 Primary osteoarthrit is, right ankle and foot (M19.071) Referring Provider First Name Pk Referring Provider Last Name [facility] [place] Referred Provider Darvin Hernández Referred Address [address] [place], [place],[address], Referred Provider Specialty Podiatry Referral Priority Routine Medications Medication SIG (Take, Route, Frequency, Duration) Notes Start Date End Date Status Ozempic Active Trulicity 1.5 MG/0.5ML as directed Subcutaneous Not-Taking metFORMIN HCl 500 MG 1 tablet with a darshan l Orally Once a day for 30 day(s) Active glyBURIDE 2.5 MG 1 tablet with breakf ast or the first main meal of the day Orally Once a day for 30 day(s) Not-Taking Physical Therapy . . . 2-3x/week for 3- 4 weeks 03/12/2024 Active Extra Depth Diabetic Shoes with 3 Pair Custom heat-molded multi-density innersoles for 1 year Dx: A ctive Atorvastatin Calcium 40 MG 1 tablet Orally Once a day for 30 day(s) Active Ciclopirox Olamine 0.77 % 1 application to affected area Externally Twice a day to effected areas on feet for 30 days Active amLODIPine Besylate 5 MG 1 tablet [...] Are you an other tobacco user? No Problems Problem Type SNOMED Code ICD Code Onset Dates Problem Status W/U Status Risk Notes Problem Localized, primary osteoarthritis of the ankle and/or foot (134606922) Primary osteoarthritis, right ankle and foot (M19.071) Active confirmed Problem Localized, primary osteoarthritis of the ankle and/or foot (975773042) Primary osteoarthritis, left ankle and foot (M19.072) Active confirmed Problem Polyneuropathy due to type 2 diabetes mellitus (090312776) Type 2 diabetes mellitus with diabetic polyneuropathy (E11.42) Active confirmed Vital Signs Height 6 ft in 03/12/2024 Weight 225 lbs 03/12/2024 BMI 30.51 kg/m2 03/12/2024 Encounters Encounter Location Date Provider Diagnosis [facility] [address] [address] 03/12/2024 Darvin Hernández Type 2 diabetes mellitus with diabetic polyneuropathy E11.42 ; Primary osteoarthritis, left ankle and foot M19.072 ; Primary osteoarthritis, right ankle and foot M19.071 ; Tinea pedis B35.3 and Left foot drop M21.372 [facility] [address] 05/03/2024 DarvinMcmanus Assessments Encounter Date Diagnosis (ICD Code) Assessment Notes Treatment Notes Treatment Clinical Notes Section Notes 03/12/2024 Primary osteoarthritis, left ankle and foot (ICD-10 - M19.072) 03/12/2024 Type 2 diabetes mellitus with diabetic polyneuropathy (ICD-10 - E11.42) 03/12/2024 Primary osteoarthritis, right ankle and foot (ICD-10 - M19.071) 03/12/2024 Tinea pedis (ICD-10 - B35.3) 03/12/2024 Left foot drop (ICD-10 - M21.372) Plan Of Treatment Pending Test Test Name Order Date X ray : Ankle, left 2V 03/01/2022 X ray : Ankle, right 2V 03/01/2022 X ray : Foot, left 3V 03/01/2022 X ray : Foot, right 3V 03/01/2022 Next Appt Details Provider Name:Roberto Crandall , 03/17/2025 08:45:00 AM, [address] [place] [address], [phone], Insurance Providers Payer Name Payer Address Payer Phone Subscriber Number Group Number Insured Name Patient Relationship to Insured Coverage Start Date Coverage End Date [facility] [address] [place] [address] [id number] Julien Hein Self - patient is the insured Medical (General) History Medical History History ICD Code Chicken pox Diabetes mellitus Joint implants/screws Surgical History Surgery Date(Month/Year) knee surgery, left 1974, 2010 knee surgery, right 1975, 2012 shoulder dislocation 1977, 1979 shoulder replacement 2017 carpal tunnel both hands 01-07-22
--- OUTSIDE RECORDS SUMMARY | 2024-12-18 17:30 | XMS_ITS ---
Author Organization [facility] leonardo Tioga Address [address] [place] [address] Care Team Providers Care Director Informatics Name Role Phone Jarekjimi Pk Primary Care Provider Darvin Verduzco [phone] REASON FOR VISIT Referral Needed Encounters Encounter Location Date Provider Diagnosis [address] [address] 05/03/2024 Darvin Hernández Plan Of Treatment Next Appt Details Provider Name:Roberto Crandall , 03/17/2025 08:45:00 AM, [address] [place], [address], Progress Notes * Julien HEIN BDOB: [birth year] (64 yo M)Acc No.[id number]:05/03/2024 Patient:?Julien Hein :1960???Age:64 Y???Sex:Male Address: [address], [place], [address] * true * Date:? Generated for Sureshi areli/Nicola/eTransmitting on:?12/18/2024 05:29 PM EDT
== END 2024-12-18 14:53 | disposition home or self-care (01) ==
LOC: HO.CT 14:52
PROVIDERS: PCP Family Medicine; Visit Provider Urology
DX: N20.0 Calculus of kidney (principal); R82.994 Hypercalciuria
CPT/HCPCS: 74176

== ENCOUNTER → 2024-12-18 14:53 | Outpatient (BNV) | payer BC, SELFPAY | PROVIDERS: PCP Family Medicine; Visit Provider Radiology Vascular & Interventional Radiology | DX: N20.0 Calculus of kidney (principal) | CPT/HCPCS: 74176 ==

== ENCOUNTER 2025-02-16 09:55 | Outpatient (AMB) | payer BC, SELFPAY ==
--- NOTE | 2025-02-16 10:03 | A.OFFVIS_ITS ---
Intake Visit Reasons: 1y/CT KUB Intake Note: Patient presents today for a 1 year follow-up/CT KUB * Abdomen & Pelvis CT 12/20 Urology Meds- Pyridium & Tamsulosin Allergies to Antibiotic- No Known Allergies Blood Thinner- None Application Integration Architect Required: No Accompanied by: Self / Same As Patient Allergies No Known Allergies Allergy (Verified 02/16/25 10:04) Medication List - Last Reconciled 02/16/25 by Ryan Prince MD amlodipine 5 mg PO BEDTIME atorvastatin 40 mg PO BEDTIME metformin 1,000 mg PO BID multivitamin 1 tab PO BEDTIME semaglutide (Ozempic) mg subcut tamsulosin (Flomax) 0.4 mg PO BEDTIME HPI Comments Details: 02/16/25-- History of Present Illness - The patient is a 65 year old male presenting for follow-up nephrolithiasis. - The patient reported an intermittent urinary flow blockade, experiencing this problem since early this year, described as discomfort at the penis end when blockage feels like a rock halting urination. - Tests for urinary tract infections and PSA levels conducted previously returned normal, eliminating infection concerns. - CAT scan verified the presence of a bladder stone, once believed to be initially located in a kidney. Discussion Notes I reviewed the patient's CT scan reporting a bladder stone likely originating from earlier kidney stone fragments. We discussed the management plan involving Flomax (tamsulosin) administration to potentially relax bladder muscles aiding stone passage. I acknowledged the patient's concern regarding intermittent urinary flow and brief discomfort noting potential for stone-related obstructions. We considered continuing Flomax for a few weeks, allowing potential stone expulsion into a provided urine strainer. I've informed the patient potential future procedures, notably a cystoscopy, if symptoms persist and no stone passage occurs. No infection markers detected in today's urine analysis, confirming no active infection. Results - Imaging: CT scan 12/18/24--The previously seen proximal left ureteral calculus is currently within the bladder. No additional urinary calculus identified. - Laboratory: Urinalysis WNL, no signs of infection 02/18/24--Julien is followed for left nephrolithiasis, he was initially evaluated and treated in Sep, this year, for a 1.3 cm left obstructing stone with stent placement followed by Left ESWL and stent removal. FU renal US 11/07/23 indicated a 6 mm fragment in the left lower pole. He was scheduled for repeat left ESWL with me on--01/09/24, however KUB Xray prior to procedure and simulation intra op with Fluoro and ultrasound failed to identify remainging fragment. He completed 24 hr urine which I have reviewed with him, notable for hypercalciuria, urine Ca - 344. urine Sodium was also elevated and low sodium diet was discussed. He is hydrating well and adding lemon to the water daily. Also reviewed stone analysis, Ca Ox. Will refer to Nephrology, fu in one year, CT stone protocol prior. Pt to cont vit B6 but may discontinue daily vit C. 30 minutes spent in review of records pertaining to this visit and including [id number] discussion with the patient and documentation of this visit. 11/16/23--Michele is a pleasant male. He is a patient of Dr. Garner. He seen for the following urologic conditions - nephrolithiasis 6 mm remnant stone on renal ultrasound Has had occasional symptoms Would like to move ahead with left ESWL repeat Nephrolithiasis Background diabetes Imaging - CT 1.3cm stone left UPJ Intervention - stent placement with left ESWL Therapeutic plan - encourage fluids, lemon juice, vitamin B6 PFSH Medical History Renal calculi Hyperlipidemia Hypertension Diabetes type 2, controlled Surgical History Hx of lithotripsy H/O shoulder surgery History of right shoulder replacement Hx of knee surgery Social History Household Members: Spouse Housing: House Do you presently have visiting nurse or other home services: No Patient Tobacco Use Status: Never used Tobacco service: No Review of Systems Const All systems reviewed & are unremarkable except as noted in HPI and below Reports no additional complaints Eyes Reports no additional complaints ENT Reports no additional complaints Card Reports no additional complaints Resp Reports no additional complaints GI Reports no additional complaints Reports as per HPI Musc Reports no additional complaints Skin/Breast Reports system reviewed and no additional complaints, except as documented Neuro Reports no additional complaints Psych Reports no additional complaints Endo Reports no additional complaints Live/Lymph Reports no additional complaints Aller/Immun Reports no additional complaints Results Reviewed Results Reviewed: Date of Service: 12/18/24 CLINICAL HISTORY: N20.0 - Calculus of kidney N20.0 - Calculus of kidney; Additional Information:-535mGycm N20.0 - Calculus of kidney CT abdomen and pelvis without contrast Comparison: CT/NM/SR - CT ABDOMEN PELVIS WO IV CON - 09/17/23 17:29 EST Findings: No consolidation or effusion. The previous left-sided proximal ureteral calculus is now present within the bladder. There is no additional renal calculus bilaterally. Small left cortical cyst and bilateral peripelvic cysts are noted. The unenhanced liver, gallbladder, spleen, adrenal glands and pancreas are unremarkable. Moderate diffuse atherosclerotic disease. Diverticulosis without evidence of diverticulitis. There is fecal retention throughout the colon. No small bowel obstruction, free air or abscess. There is multilevel degenerative change most pronounced at L5-S1. No acute osseous finding. Impression: The previously seen proximal left ureteral calculus is currently within the bladder. No additional urinary calculus identified. Peripelvic cysts are present versus less likely fullness of the collecting system. Incidental findings as detailed. ADAM: 11/16/23-1403 STATUS: COMP REQ : [id number] RECD: 11/19/23-[address]: Wm Tovar MD COMP: 11/27/23-2248 ENTERED: 11/19/23-[address]: SILVA GARNER NP ORDERED: Kidney Stone QUERIES: Kidney Stone Source: [id number] Test Result Flag Reference Component 1 SEE NOTE Calcium Oxalate Dihydrate (Weddellite) 20% Calcium Oxalate Monohydrate (Whewellite) 80% See Note 1 Stone Weight 0.135 g Note 1 This test was developed and its analytical performance characteristics have been determined by [employer]. It has not been cleared or approved by the FDA. This assay has been validated pursuant to the CLIA regulations and is used for clinical purposes. THIS TEST WAS PERFORMED AT: [employer] [facility] [facility] [address] [place] [address] WILLIAM VÁSQUEZ MD Stone Source KIDNEY STONE Date of Service: 01/09/24 EXAMINATION: XR ABDOMEN KUB CLINICAL INDICATION: Left kidney stones COMPARISON: KUB on 09/26/2023 TECHNIQUE: AP view of the abdomen. FINDINGS: AP supine x-rays of the abdomen show nonspecific bowel gas pattern. No abnormal bowel dilatation is seen. There is normal visualization of rectal bowel gas. Bilateral kidneys are partially obscured by overlying colon bowel gas and fecal shadows especially in descending colon. No abnormal calcification could be seen. IMPRESSION: 1. Interval resolution of left lower pole renal calculus and removal of left ureteric double pigtail stent. No radiopaque renal stone could be seen on the current examination limited by overlapping bowel gas and fecal shadows. 2. No signs of intestinal obstruction on supine x-rays. Date of Service: 11/07/23 EXAMINATION: US RETROPERITONEAL LIMITED (RENAL ONLY) CLINICAL INFORMATION: Obstructed reflux uropathy.. COMPARISON: None available. TECHNIQUE: Retroperitoneal ultrasound was performed FINDINGS: RIGHT KIDNEY: 12.5 x 7.2 x 7.0 cm (SAG x AP x TRV). The kidney is normal in size, contour, and echogenicity. Renal cortical thickness is normal. No calculi or focal parenchymal lesions. There is mild peripelvic prominence versus caliectasis in lower pole. LEFT KIDNEY: 12.2 x 6.7 x 5.8 cm (SAG x AP x TRV). The kidney is normal in size, contour, and echogenicity. Renal cortical thickness is normal. No calculi or focal parenchymal lesions. No hydronephrosis. There is anechoic cyst in midpole measuring 0.7 x 0.9 x 0.7 cm. There is an echogenic stone in lower pole measuring 0.7 x 0.7 x 0.8 cm. IMPRESSION: 1. There is an anechoic cyst midpole left kidney. 2. There is an echogenic stone lower pole left kidney without caliectasis or hydronephrosis. 3. There is mild peripelvic calyceal versus caliectasis in the lower pole right kidney. Date of Service: 09/26/23 XR ABDOMEN KUB CLINICAL INDICATION: Left-sided renal stone COMPARISON: None available. TECHNIQUE: AP view of the abdomen. FINDINGS: There is scattered stool and gas seen in the colon without any significant distention. There is a 1.1 cm stone left lower pole kidney. There is a left ureteral stent in place. There is no organomegaly. There is moderate spondylosis L1-L2 and mild spondylosis L3-L4 and L4-L5 disc levels. IMPRESSION: 1. 1.1 cm stone left lower pole kidney. 2. Left ureteral stent is in place. 3. Mild constipation. Date of Service: 09/17/23 EXAMINATION: CT ABDOMEN AND PELVIS WITHOUT CONTRAST CLINICAL INFORMATION: left flank pain. COMPARISON: No pertinent prior studies are available for comparison. TECHNIQUE: Multidetector volumetric imaging was performed from the superior aspect of the liver through the pubic symphysis without contrast per renal stone protocol. Sagittal and coronal reformatted images were obtained on the technologist workstation. This CT examination was performed using dose optimization techniques as appropriate, variously including the following: *Automated exposure control *Adjustment of mA and/or kV according to patient size (this includes techniques or standardized protocols for targeted exams where dose is matched to indication/reason for exam; i.e. extremities or head) *Use of iterative reconstruction technique DLP: 760 mGy-cm. FINDINGS: LUNG BASES: The visualized lung bases are unremarkable. Prominent coronary artery calcification LIVER, GALLBLADDER, BILIARY TREE: The non-contrast liver is normal in size, shape, and attenuation. No focal hepatic lesion or biliary ductal dilatation is present. The gallbladder is unremarkable with no evidence of radiopaque gallstones, gallbladder wall thickening, or obvious pericholecystic inflammatory changes. PANCREAS: Unremarkable. SPLEEN: Unremarkable. ADRENAL GLANDS: Unremarkable. KIDNEYS AND URETERS: Mild hydronephrosis to the left kidney extending up to a 1.3 cm calcification at the left ureteropelvic junction. The ureter distal to this however is also distended up to one another 0.4 cm calculi at the left ureterovesicular junction. I do not appreciate any obstructive changes to the contralateral right kidney however there is a tiny punctate 2 mm calcification at the contralateral right ureteral vesicular junction as well. BLADDER: In addition to the calculi at the bilateral ureterovesicular junction there is an additional tiny 2 mm calcification within the posterior bladder lumen on the right GASTROINTESTINAL TRACT: Colonic diverticulosis more so in the sigmoid colon. I do not appreciate any colonic wall thickening or pericolonic inflammatory change to suggest diverticulitis. Small bowel unremarkable ABDOMINAL WALL: Small fat-containing umbilical hernia LYMPHOVASCULAR STRUCTURES: Prominent vascular calcification within the aorta iliac system. No bulky adenopathy. PELVIC VISCERA: Unremarkable. OSSEUS STRUCTURES: Multilevel degenerative changes in the spine and hips IMPRESSION: Left-sided hydronephrosis and hydroureter extending up to both a 1.3 cm calcification at the left ureteropelvic junction as well as also a 0.4 cm calcification at the left ureterovesicular junction. There is a tiny punctate 2 mm calcification at the contralateral right ureterovesicular junction as well. Assessment & Plan Assessment & Plan (1) Nephrolithiasis: Code(s): N20.0 - Calculus of kidney Category: Medical (2) Hypercalciuria: Code(s): R82.994 - Hypercalciuria Category: Medical (3) Bladder calculus: Code(s): N21.0 - Calculus in bladder Category: Medical Plan Plan - Prescribe Flomax to aid bladder stone expulsion. - Use of a urine strainer provided for observation and collection of any passed stone fragments. - Reassess under telehealth in three to four weeks, possibly plan cystoscopy if unresolved. - Patient consented to treatment after discussing benefits and plans. Medications: New tamsulosin (Flomax) 0.4 mg PO BEDTIME 30 caps 0RF Patient Instructions: The patient had an opportunity to ask questions regarding treatment plan. The patient expressed understanding and agreement with the above treatment plan. The patient is aware they should contact our office by phone for worsening of their current condition or the appearance of new symptoms. Compliance is encouraged with any medications and followup testing that is ordered. It is a privilege to be allowed the opportunity to participate in the urologic care of your patient. If you have any questions or concerns regarding treatment for the above conditions please do not hesitate to contact me. The office telephone contact is [phone]. This note is constructed in part using voice recognition software. While every effort has been made to ensure accuracy detail technician errors may have been included. Yours sincerely, Ryan Prince MD Scribe Plan - Not visible on output: Patient was informed and verbally consented to the use of an ambient scribe for clinic note documentation during this visit. Coding Level of Care Code Est Pt Level 4 (49182) Diagnoses Nephrolithiasis N20.0 Hypercalciuria R82.994 Bladder calculus N21.0
--- OUTSIDE RECORDS SUMMARY | 2025-02-16 10:46 | XMS_ITS ---
Author Organization [facility] Address [address] [place] [address] Care Team Providers Care Animal Pathologist Name Role Phone Pk Thompson Primary Care Provider Darvin Verduzco [phone] Pretty Encounters Encounter Location Date Provider Diagnosis [address] [address] 03/06/2024 Darvin Heránndez Plan Of Treatment Next Appt Details Provider Name:Roberto Ileana SorianoKarley , 03/17/2025 08:45:00 AM, [address] [place], [address], Progress Notes * Julien HEIN BDOB: [birth year] (65 yo M)Acc No.[id number]:03/06/2024 Progress Note Patient:?Julien HEIN Provider:Jillian Hernández DPM :1960???Age:64 Y???Sex:Male Jayce e:03/06/2024 Address: [address] [id number] Pcp:Pk Thompson Subjective: * Chief Complaints: * [...] DPM Date:? 024 Generated for [facility] singleton/Nicola/Joshua on:?02/16/2025 10:45 AM EDT
== END 2025-02-16 11:21 | disposition home or self-care (01) ==
LOC: HO.HUSH 09:56
PROVIDERS: PCP Family Medicine; Visit Provider Urology
DX: N20.0 Calculus of kidney (principal); R82.994 Hypercalciuria; N21.0 Calculus in bladder
CPT/HCPCS: 99214

== ENCOUNTER → 2025-02-16 09:55 | Outpatient (BNVA) | payer BC, SELFPAY | PROVIDERS: PCP Family Medicine; Visit Provider Urology | DX: N21.0 Calculus in bladder (principal); R82.994 Hypercalciuria; N20.0 Calculus of kidney; E11.9 Type 2 diabetes mellitus without complications | CPT/HCPCS: 81003 ==

== ENCOUNTER 2025-03-16 08:30 | Outpatient (AMB) | payer BC, SELFPAY ==
--- OUTSIDE RECORDS SUMMARY | 2024-03-06 10:00 | XMS_ITS ---
Author Organization [facility] Address [address] [place] [address] Care Team Providers Care Food Scientist Name Role Phone Pk Thompson Primary Care Provider Roberto Garcia Unavailable [phone] Darvin Hernández [phone] Pretty Encounters Encounter Location Date Provider Diagnosis [facility] [address] 03/06/2024 Darvin Hernández Plan Of Treatment Next Appt Details Provider Name:Roberto Crandall , 03/17/2025 08:45:00 AM, [address] [place], [address], Progress Notes * Julien LUNA BDOB: [birth year] (65 yo M)Acc No.[id number]:03/06/2024 Progress Note Patient: Celestine BAIG Julien Ross Provider: Sulma Hernández DPM :1960 A ge:64 Y S ex:Male Date:03/06/2024 Address: [place] [facility] [id number] Pcp:Pk Thompson Subjective: * Chief Complaints: * [...] 0 03/06/2024 Generated for Duke Mancilla on: 03/16/2025 08:40 AM EDT
--- NOTE | 2025-03-15 14:30 | A.OFFVIS_ITS ---
Intake Visit Reasons: Kidney stones f/u Intake Note: Patient presents today via telehealth for a follow up/kidney stones Urology Meds- Tamsulosin Allergies to Antibiotic- No Known Allergies Blood Thinner- None Application Development Team Lead Required: No Accompanied by: Self / Same As Patient Allergies No Known Allergies Allergy (Verified 03/16/25 08:32) Medication List - Last Reconciled 03/16/25 by Ryan Prince MD amlodipine 5 mg PO BEDTIME atorvastatin 40 mg PO BEDTIME metformin 1,000 mg PO BID multivitamin 1 tab PO BEDTIME semaglutide (Ozempic) mg subcut tamsulosin (Flomax) 0.4 mg PO BEDTIME HPI Comments Details: 03/16/2025-telehealth follow-up History of Present Illness - The patient is a 65-year-old male presenting with symptoms related to a kidney stones. - Prescribed Flomax and advised to strain urine, the patient reports not passing the stone and continues to experience symptoms. - A follow-up CT scan on 12/18/24 showed the stone had moved to the bladder. - History of kidney stones requiring interventions, including ureteroscopy and lithotripsy. - Denies hematuria but reports discomfort during urination and intermittent urinary obstruction. Results - Follow-up CT scan on 12/18/24: left kidney proximal ureteral stone moved to the bladder, no other renal calculi visualized. 02/16/25-- - The patient is a 65 year old male presenting for follow-up nephrolithiasis. - The patient reported an intermittent urinary flow blockade, experiencing this problem since early this year, described as discomfort at the penis end when blockage feels like a rock halting urination. - Tests for urinary tract infections and PSA levels conducted previously returned normal, eliminating infection concerns. - CAT scan verified the presence of a bladder stone, once believed to be initially located in a kidney. Discussion Notes I reviewed the patient's CT scan reporting a bladder stone likely originating from earlier kidney stone fragments. We discussed the management plan involving Flomax (tamsulosin) administration to potentially relax bladder muscles aiding stone passage. I acknowledged the patient's concern regarding intermittent urinary flow and brief discomfort noting potential for stone-related obstructions. We considered continuing Flomax for a few weeks, allowing potential stone expulsion into a provided urine strainer. I've informed the patient potential future procedures, notably a cystoscopy, if symptoms persist and no stone passage occurs. No infection markers detected in today's urine analysis, confirming no active infection. Results - Imaging: CT scan 12/18/24--The previously seen proximal left ureteral calculus is currently within the bladder. No additional urinary calculus identified. - Laboratory: Urinalysis WNL, no signs of infection 02/18/24--Julien is followed for left nephrolithiasis, he was initially evaluated and treated in Sep, this year, for a 1.3 cm left obstructing stone with stent placement followed by Left ESWL and stent removal. FU renal US 11/07/23 indicated a 6 mm fragment in the left lower pole. He was scheduled for repeat left ESWL with me on--01/09/24, however KUB Xray prior to procedure and simulation intra op with Fluoro and ultrasound failed to identify remainging fragment. He completed 24 hr urine which I have reviewed with him, notable for hypercalciuria, urine Ca - 344. urine Sodium was also elevated and low sodium diet was discussed. He is hydrating well and adding lemon to the water daily. Also reviewed stone analysis, Ca Ox. Will refer to Nephrology, fu in one year, CT stone protocol prior. Pt to cont vit B6 but may discontinue daily vit C. 30 minutes spent in review of records pertaining to this visit and including [id number] discussion with the patient and documentation of this visit. 11/16/23--Michele is a pleasant male. He is a patient of Dr. Garner. He seen for the following urologic conditions - nephrolithiasis 6 mm remnant stone on renal ultrasound Has had occasional symptoms Would like to move ahead with left ESWL repeat Nephrolithiasis Background diabetes Imaging - CT 1.3cm stone left UPJ Intervention - stent placement with left ESWL Therapeutic plan - encourage fluids, lemon juice, vitamin B6 PFSH Medical History Renal calculi Hyperlipidemia Hypertension Diabetes type 2, controlled Surgical History Hx of lithotripsy H/O shoulder surgery History of right shoulder replacement Hx of knee surgery Social History Household Members: Spouse Housing: House Do you presently have visiting nurse or other home services: No Patient Tobacco Use Status: Never used Tobacco service: No Review of Systems Const All systems reviewed & are unremarkable except as noted in HPI and below Reports no additional complaints Eyes Reports no additional complaints ENT Reports no additional complaints Card Reports no additional complaints Resp Reports no additional complaints GI Reports no additional complaints Reports as per HPI Musc Reports no additional complaints Skin/Breast Reports system reviewed and no additional complaints, except as documented Neuro Reports no additional complaints Psych Reports no additional complaints Endo Reports no additional complaints Live/Lymph Reports no additional complaints Aller/Immun Reports no additional complaints Telehealth Telehealth Telehealth Platform: [employer] Location of provider rendering services: practice address Location of patient: address on file Patient Identification confirmed using: Name, : Yes Telehealth method: voice only Patient verbally consented to treatment: Yes Patient verbally consented to billing insurance company: Yes Patient informed of any privacy concerns related to visit: Yes Minutes spent on Phone/Video with Pt.: 14 Results Reviewed Results Reviewed: Date of Service: 12/18/24 CT abdomen and pelvis without contrast Comparison: CT/IN/SR - CT ABDOMEN PELVIS WO IV CON - 09/17/23 17:29 EST Findings: No consolidation or effusion. The previous left-sided proximal ureteral calculus is now present within the bladder. There is no additional renal calculus bilaterally. Small left cortical cyst and bilateral peripelvic cysts are noted. The unenhanced liver, gallbladder, spleen, adrenal glands and pancreas are unremarkable. Moderate diffuse atherosclerotic disease. Diverticulosis without evidence of diverticulitis. There is fecal retention throughout the colon. No small bowel obstruction, free air or abscess. There is multilevel degenerative change most pronounced at L5-S1. No acute osseous finding. Impression: The previously seen proximal left ureteral calculus is currently within the bladder. No additional urinary calculus identified. Peripelvic cysts are present versus less likely fullness of the collecting system. Incidental findings as detailed. 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 It has not been cleared or approved by the FDA. This assay has been validated pursuant to the CLIA regulations and is used for clinical purposes. THIS TEST WAS PERFORMED AT: [facility] [address] [place] [address] WILLIAM VÁSQUEZ MD Stone Source KIDNEY STONE Date of Service: 01/09/24 EXAMINATION: XR ABDOMEN KUB CLINICAL INDICATION: Left kidney stones COMPARISON: KUB on 09/26/2023 TECHNIQUE: AP view of the abdomen. FINDINGS: AP supine x-rays of the abdomen show nonspecific bowel gas pattern. No abnormal bowel dilatation is seen. There is normal visualization of rectal bowel gas. Bilateral kidneys are partially obscured by overlying colon bowel gas and fecal shadows especially in descending colon. No abnormal calcification could be seen. IMPRESSION: 1. Interval resolution of left lower pole renal calculus and removal of left ureteric double pigtail stent. No radiopaque renal stone could be seen on the current examination limited by overlapping bowel gas and fecal shadows. 2. No signs of intestinal obstruction on supine x-rays. Date of Service: 11/07/23 EXAMINATION: US RETROPERITONEAL LIMITED (RENAL ONLY) CLINICAL INFORMATION: Obstructed reflux uropathy.. COMPARISON: None available. TECHNIQUE: Retroperitoneal ultrasound was performed FINDINGS: RIGHT KIDNEY: 12.5 x 7.2 x 7.0 cm (SAG x AP x TRV). The kidney is normal in size, contour, and echogenicity. Renal cortical thickness is normal. No calculi or focal parenchymal lesions. There is mild peripelvic prominence versus caliectasis in lower pole. LEFT KIDNEY: 12.2 x 6.7 x 5.8 cm (SAG x AP x TRV). The kidney is normal in size, contour, and echogenicity. Renal cortical thickness is normal. No calculi or focal parenchymal lesions. No hydronephrosis. There is anechoic cyst in midpole measuring 0.7 x 0.9 x 0.7 cm. There is an echogenic stone in lower pole measuring 0.7 x 0.7 x 0.8 cm. IMPRESSION: 1. There is an anechoic cyst midpole left kidney. 2. There is an echogenic stone lower pole left kidney without caliectasis or hydronephrosis. 3. There is mild peripelvic calyceal versus caliectasis in the lower pole right kidney. Date of Service: 09/26/23 XR ABDOMEN KUB CLINICAL INDICATION: Left-sided renal stone COMPARISON: None available. TECHNIQUE: AP view of the abdomen. FINDINGS: There is scattered stool and gas seen in the colon without any significant distention. There is a 1.1 cm stone left lower pole kidney. There is a left ureteral stent in place. There is no organomegaly. There is moderate spondylosis L1-L2 and mild spondylosis L3-L4 and L4-L5 disc levels. IMPRESSION: 1. 1.1 cm stone left lower pole kidney. 2. Left ureteral stent is in place. 3. Mild constipation. Date of Service: 09/17/23 EXAMINATION: CT ABDOMEN AND PELVIS WITHOUT CONTRAST CLINICAL INFORMATION: left flank pain. COMPARISON: No pertinent prior studies are available for comparison. TECHNIQUE: Multidetector volumetric imaging was performed from the superior aspect of the liver through the pubic symphysis without contrast per renal stone protocol. Sagittal and coronal reformatted images were obtained on the technologist workstation. This CT examination was performed using dose optimization techniques as appropriate, variously including the following: *Automated exposure control *Adjustment of mA and/or kV according to patient size (this includes techniques or standardized protocols for targeted exams where dose is matched to indication/reason for exam; i.e. extremities or head) *Use of iterative reconstruction technique DLP: 760 mGy-cm. FINDINGS: LUNG BASES: The visualized lung bases are unremarkable. Prominent coronary artery calcification LIVER, GALLBLADDER, BILIARY TREE: The non-contrast liver is normal in size, shape, and attenuation. No focal hepatic lesion or biliary ductal dilatation is present. The gallbladder is unremarkable with no evidence of radiopaque gallstones, gallbladder wall thickening, or obvious pericholecystic inflammatory changes. PANCREAS: Unremarkable. SPLEEN: Unremarkable. ADRENAL GLANDS: Unremarkable. KIDNEYS AND URETERS: Mild hydronephrosis to the left kidney extending up to a 1.3 cm calcification at the left ureteropelvic junction. The ureter distal to this however is also distended up to one another 0.4 cm calculi at the left ureterovesicular junction. I do not appreciate any obstructive changes to the contralateral right kidney however there is a tiny punctate 2 mm calcification at the contralateral right ureteral vesicular junction as well. BLADDER: In addition to the calculi at the bilateral ureterovesicular junction there is an additional tiny 2 mm calcification within the posterior bladder lumen on the right GASTROINTESTINAL TRACT: Colonic diverticulosis more so in the sigmoid colon. I do not appreciate any colonic wall thickening or pericolonic inflammatory change to suggest diverticulitis. Small bowel unremarkable ABDOMINAL WALL: Small fat-containing umbilical hernia LYMPHOVASCULAR STRUCTURES: Prominent vascular calcification within the aorta iliac system. No bulky adenopathy. PELVIC VISCERA: Unremarkable. OSSEUS STRUCTURES: Multilevel degenerative changes in the spine and hips IMPRESSION: Left-sided hydronephrosis and hydroureter extending up to both a 1.3 cm calcification at the left ureteropelvic junction as well as also a 0.4 cm calcification at the left ureterovesicular junction. There is a tiny punctate 2 mm calcification at the contralateral right ureterovesicular junction as well. 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 Bilateral retrogrades Patient Instructions: The patient had an opportunity to ask questions regarding treatment plan. The patient expressed understanding and agreement with the above treatment plan. The patient is aware they should contact our office by phone for worsening of their current condition or the appearance of new symptoms. Compliance is encouraged with any medications and followup testing that is ordered. It is a privilege to be allowed the opportunity to participate in the urologic care of your patient. If you have any questions or concerns regarding treatment for the above conditions please do not hesitate to contact me. The office telephone contact is [phone]. This note is constructed in part using voice recognition software. While every effort has been made to ensure accuracy slurry plant operator errors may have been included. Yours sincerely, Ryan Prince MD Scribe Plan - Not visible on output: Patient was informed and verbally consented to the use of an ambient scribe for clinic note documentation during this visit. Coding Level of Care Code Tele Est Pt Level 4 (21784) Diagnoses Nephrolithiasis N20.0 Hypercalciuria R82.994 Bladder calculus N21.0
== END 2025-03-16 10:53 | disposition home or self-care (01) ==
LOC: HO.HUSH 08:30
PROVIDERS: PCP Family Medicine; Visit Provider Urology
DX: N20.0 Calculus of kidney (principal); R82.994 Hypercalciuria; N21.0 Calculus in bladder
CPT/HCPCS: 99214

== ENCOUNTER 2025-05-05 08:31 | Day surgery (SDC) | payer BC, SELFPAY ==
--- OUTSIDE RECORDS SUMMARY | 2025-03-17 04:45 | XMS_ITS ---
Author Organization [facility] Sudha Crowe Address [address] [place] [address] Care Team Providers Care Chimney Mechanic Name Role Phone Jarekjimi Pk Primary Care Provider Roberto Garcia Unavailable [phone] Allergies No Known Allergies REASON FOR VISIT At Risk Footcare, Toe Irritation, Skin Problem Medications Medication SIG (Take, Route, Frequency, Duration) Notes Start Date End Date Status amLODIPine Besylate 5 MG 1 tablet Orally Once a day; Duration: 30 day(s) Active Atorvastatin Calcium 40 MG 1 tablet Orally Once a day; Duration: 30 day(s) Active metFORMIN HCl 500 MG 1 tablet with a darshan l Orally Once a day; Duration: 30 day(s) Active Farxiga Active Ozempic Active Physical Therapy . . . 2-3x/week; Durat ion: 3-4 weeks 03/12/2024 Not-Taking glyBURIDE 2.5 MG 1 tablet with breakf ast or the first main meal of the day Orally Once a day; Duration: 30 day(s) Not-Heber ing Trulicity 1.5 MG/0.5ML as directed Subcutaneous Not-Taking Extra Depth Orthopedic Shoes (1 Pair) with Customized Heat Molded Multidensity Innersoles (3 Pair) Dx: NIDDM/Polyneuropathy (E11.42), Hammertoe Foot Deformity (M20.41,M20.42), Preulcerative Skin Lesion(s) (L85.1); Duration: 365 days 03/17/2025 Active Ciclopirox Olamine 0.77 % 1 application to affected area Externally Twice a day to effected areas on feet; Duration: 30 days 03/17/2025 Active Social History Tobacco Use: Social History Observation Description Date Details (start date - stop date) Never Smoker NA - NA Tobacco use other than smoking: Question Answer Notes Are you an other tobacco user? No Tobacco Control (Standard) Question Answer Notes Tobacco use: Nonsmoker Additional Findings: Tobacco non-user Current no nsmoker AUDIT-C (Standard) Question Answer Notes Did you have a drink contain ing alcohol in the past year? Yes How often did you have a dri nk containing alcohol in the past year? 2 to 4 times a month (2 points) How many drinks did you have on a typical day when you were drinking in the past year? 3 or 4 drinks (1 point) How often did you have six o r more drinks on one occasion in the past year? Less than monthly (1 point) Points 4 Interpretation Positive Problems Problem Type SNOMED Code ICD Code Onset Dates Problem Status W/U Status Risk Notes Problem Acquired hammer toe of right foot (1790526865283 105) Other hammer toe(s) (acquired), right foot (M20.41) Active confirmed Problem Acquired hammer toe of left foot (4539986644219 103) Other hammer toe(s) (acquired), left foot (M20.42) Active confirmed Vital Signs Height 6 ft in 03/17/2025 Weight 225 lbs 03/17/2025 BMI 30.51 kg/m2 03/17/2025 Blood pressure systolic 128 mm Hg 03/17/20 25 Blood pressure diastolic 65 mm Hg 025 Encounters Encounter Location Date Provider Diagnosis [facility] [address] [place] [address] 03/17/2025 Roberto Crandall Type 2 diabetes mellitus with diabetic polyneuropathy E11.42 ; Other hammer toe(s) (acquired), right foot M20.41 ; Other hammer toe(s) (acquired), left foot M20.42 and Tinea pedis of both feet B35.3 Assessments Encounter Date Diagnosis (ICD Code) Assessment Notes Treatment Notes Treatment Clinical Notes Section Notes 03/17/2025 Type 2 diabetes mellitus with diabetic polyneuropathy (ICD-10 - E11.42) 03/17/2025 Other hammer toe(s) (acquired), right foot (ICD-10 - M20.41) Patient Educated with: DIABETIC FOOT CARE INSTRUCTIONS. pdf (DIABETIC FOOT CARE INSTRUCTIONS. pdf) 03/17/2025 Other hammer toe(s) (acquired), left foot (ICD-10 - M20.42) 03/17/2025 Tinea pedis of both feet (ICD-10 - B35.3) Patient Educated with: ATHELETE .pdf (ATHELETE .pdf) Plan Of Treatment Medication Medication Name Sig Start Date Stop Date Notes Extra Depth Orthopedic Shoes (1 Pair) with Customized Heat Molded Multidensity Innersoles (3 Pair) Dx: NIDDM/Polyneuropathy (E11.42), Hammertoe Foot Deformity (M20.41,M20.42), Preulcerative Skin Lesion(s) (L85.1); Duration: 365 days 03/17/2025 Ciclopirox Olamine 0.77 % 1 application to affected area Externally Twice a day to effected areas on feet; Duration: 30 days 03/17/2025 Treatment Notes Assessment Notes Other hammer toe(s) (acquired), right fo ot Patient Educated with: DIABETIC FOOT CARE INSTRUCTIONS.pdf (DIABETIC FOOT CARE INSTRUCTIONS.pdf) Tinea pedis of both feet Patient Educate d with: ATHELETE .pdf (ATHELETE .pdf) Next Appt Details Follow Up: 1 Year, Reason: Provider Name:Roberto Crandall , 03/30/2026 08:45:00 AM, [address] [place] [address], [id number], Progress Notes * Julien HEIN BDOB: [birth year] (65 yo M)Acc No.[id number]:03/17/2025 Progress Note Patient: Julien HOPKINS Provider: Chen Crandall DPM :1960 A ge:65 Y S ex:Male Date:03/17/2025 Address:[address] [place], [place] [id number] Pcp:Pk Thompson Subjective: * Chief Complaints: * A t Risk FootcareToe IrritationSkin Problem * HPI: A t Risk footcare: Pt States Last PCP Visit: Shelbi amaro 0 02/18/2025 T oe pain: Location: B /L feet. Duration: s everal years. Course: w orse. Aggravated by: s hoes, any pressure. Treatments: c hange in shoes. S kin problems: Nature: s caling , redness. Location: B /L . Duration: s everal days. Course: w orse. Treatments: M edication (Ciclopirox Olamine 0.77 Cream), has been effective for the condition in the past. * ROS: G eneral/Constitutional: Nausea d enies. V omiting d enies. H pan Thirst d enies. L oss appetite d enies. C hills d enies. F atigue d enies.?Fever d enies. N ight Sweats d enies. U nexplained weight loss d enies. U nexplained weight gain d enies. H EENTM: Dentures d enies. D izziness d enies. G lasses/contacts a dmits. R etinopathy d enies. B lurred/double vision d enies. T MJ?denies. D ischarge/drainage d enies. I mplants d enies. S ore throat d enies. D ental implants d enies. H coral of hearing d enies. D ifficulty chewing/swallowing/speaking d enies. N ose bleeds d enies. S ore mouth d enies. ? R espiratory: On Oxygen d enies. P neumonia/pleurisy d enies.?Bronchitis d enies. E mphysema d enies. C oughing d enies. C ough blood?denies. S hortness of breath d enies. W heezing d enies. C ardiovascular: Pacemaker d enies. M SOCIAL SCIENCE MANAGER d enies. W PW d enies. C HF d enies. H eart attack d enies. S eptal defect d enies. R apid beat d enies. C hest pain d enies. A trial Fib. d enies. M urmur/Palpitations d enies. G astrointestinal: Hemorrhoids d enies. S tomach/Abdominal pain d enies. D ark blood stool d enies. I rritable bowel d enies. C onstipation d enies. D iarrhea d enies. H ematology: Swelling d enies. C lots d enies. V aricose Veins d enies. B ruising d enies. B leeding problem d enies. G enitourinary: Blood urine d enies. F requent/Painfu/urination/bladder control d enies. K idney stones d enies. I nfection (UTI) d enies. N ephropathy d enies. s ex trans dis (STD) d enies. P rostate d enies. M usculoskeletal: Hammertoes a dmits. B unions d enies. B ack Pain d enies. M uscle Cramps/ Resting d enies. M uscle cramps / walking d enies.?Generalized aches and pains d enies. W eakness d enies. I nteg.: Sandhu d enies. S cars a dmits. C orns/calluses?admits. I ngrown nails d enies. P ainful nails d enies. O pen Sores d enies. R ashes d enies. N eurologic: Difficulty sleeping d enies. B rain disorder d enies. N umbness d enies. B alance trouble d enies. C onfusion d enies. F ainting/blackouts d enies. T ingling d enies. T remors d enies. * Medical History: * Surgical History: k nee surgery, left 1974, 2010knee surgery, right 1975, 2012shoulder dislocation 1977, houlder replacement 2017carpal tunnel both hands 01-07-22 * Hospitalization/Major Diagno stic Procedure: D enies Past Hospitalization * Family History: M other: , diagnosed with Other malignant neoplasm of unspecified site. F ather: . * Social History: T obacco Use: T obacco use other than smoking A re you an other tobacco user? N o Tobacco Control (Standard) T obacco use: N onsmoker A dditional Findings: Tobacco non-user C urrent nonsmoker D rugs/Alcohol: D rugs H ave you used drugs other than those for medical reasons in the past 12 months? N o M iscellaneous: C affeine: yes, frequency:, 1-2 cups per day. Children: no. Exercise: Golf, Walking. Marital status: . Occupation: [employer]. D rug/Alcohol: A JENA-C (Standard) D id you have a drink containing alcohol in the past year? Y es H ow often did you have a drink containing alcohol in the past year? 2 to 4 times a month (2 points) H ow many drinks did you have on a typical day when you were drinking in the past year? 3 or 4 drinks (1 point) H ow often did you have six or more drinks on one occasion in the past year? L ess than monthly (1 point) P oints 4 I nterpretation P ositive * Medications: T akingFarxiga Ozempic amLODIPine Besylate 5 MG Tablet 1 tablet Orally Once a day Atorvastatin Calcium 40 MG Tablet 1 tablet Orally Once a day metFORMIN HCl 500 MG Tablet 1 tablet with a meal Orally Once a day Taking Farxiga Taking Ozempic Taking amLODIPine Besylate 5 MG Tablet 1 tablet Orally Once a day Taking Atorvastatin Calcium 40 MG Tablet 1 tablet Orally Once a day Taking metFORMIN HCl 500 MG Tablet 1 tablet with a meal Orally Once a day Not-Taking/PRNPhysical Therapy . . . . 2- 3x/week glyBURIDE 2.5 MG Tablet 1 tablet with breakfast or the first main meal of the day Orally Once a day Trulicity 1.5 MG/0.5ML Solution Pen-injector as directed Subcutaneous Medication List reviewed and reconciled with the patientNot- Taking/PRN Physical Therapy . . . . 2-3x/week Not-Taking/PRN glyBURIDE 2.5 MG Tablet 1 tablet with breakfast or the first main meal of the day Orally Once a day Not- Taking/PRN Trulicity 1.5 MG/0.5ML Solution Pen-injector as directed Subcutaneous Medication List reviewed and reconciled with the patient * Allergies: N .K.D.A.yes[Allergies Verified] Objective: * Vitals: H t:6 ft, Wt:225, BMI:30.51, Shoe size:11.5-12, BP:128/65mm Hg, BS: 13,132, Ht-cm: 182.88 cm, Wt-k.06 kg. * P ast Orders: L ab:HEMOGLOBIN A1C (GLYCOHEMOGLOBIN) (Order Date - 02/09/2025) (Collection Date & Time - 03/17/2025 08:54 AM) Value Reference Range HEMOGLOBIN A1C % (HH) 6.7 * Examination: O phthalmology Referral: DIABETES EYE EXAM P rocedure Performed: Y brianna D ate of Exam Performed 0 09/12/2024 D iabetic Retinopathy Screening: Y es R etinal Screening Performed: Y es F indings of Diabetic Eye Exam: n o retinopathy N eurological: SENSORY: N eurological exam demonstrates, reduced light touch sensation, reduced sharp/dull discrimination , reduced vibration sensation, in a stocking fashion, at Forefoot, B/L, 5.07 monofilament test performed at plantar aspects of 5 varied sites per foot shows sensation, reduced, at Forefoot, B/L. D ermatologic: SKIN FINDINGS: S kin exam reveals Keratotic lesion(s) located at , Plantar Heel(s), B/L, Skin shows sign(s) of, inflammation, interdigital maceration, vesicles, pruritus, B/L 4th Interspace. O rthopedic: MUSCLE STRENGTH: 5 /5 all groups in a symmetrical fashion, B/L. FOOT MORPHOLOGY: ( +) Charcot collapse/destruction noted at MTJ, Right. DIGITAL DEFORMITIES: D igital contracture, PIPJ, 2-5 B/L, incompl-reducible to push-up test, no over, nor underlapping, t here is e vidence of shoe producing skin irritation. FOOTWEAR EVALUATION: s hoe gear properties exacerbate patients complaints in relation to their foot/toe deformity. V ascular: DP PULSES (B): 3 /4, B/L. PT PULSES (B): 3 /4, B/L. CAPILLARY FILL TIME: i mmediate, all digits, B/L. TROPHIC CONDITION-TEXTURE/ELASTICITY/TURGOR/HAIR GROWTH (B):?normal, B/L. TEMPERTURE GRADIENT (C): n ormal, warm to cool, proximal to distal, B/L, B/L. PIGMENTATION: n ormal, B/L. EDEMA (C): a bsent, B/L. CLAUDICATION (C): d enies, B/L. REST PAIN: d enies, B/L. G eneral Examination: GENERAL APPEARANCE: Panfilo velásquez a pleasant, alert, well nourished, well-developed, well hydrated individual, who demonstrates proper attention to hygiene/body habitus, and is in no acute distress, Pt serves as own historian for office visit today. ORIENTED: p erson, place, and time. FOOT EXAM: L ower Extremity Neurological Exam performed:?Yes V isual exam of foot performed: Y es D ate 0 03/17/2025 DATE Footwear Evaluation F ootwear Evaluation performed: Y es Assessment: * Assessment: 1. O ther hammer toe(s) (acquired), right foot - M20.41 S pecify :Chronic problem, Worse (4),Rx Management (4) 2 . T ype 2 diabetes mellitus with diabetic polyneuropathy - E11.42 (Primary) 3. O ther hammer toe(s) (acquired), left foot - M20.42 S pecify :Chronic problem, Worse (4),Rx Management (4) 4 . T inea pedis of both feet - B35.3 S pecify :Acute problem, Uncomplicated (3), Rx drug management (4) Plan: * Treatment: 2. T inea pedis of both feet Start Ciclopirox Olamine Cream, 0.77 %, 1 application to affected area, Externally, Twice a day to effected areas on feet, 30 days, 90, Refills 2. Notes: Patient Educated with: SUELLEN .pdf (ATHELETE .pdf) * Procedure Codes: * Preventive Medicine: Counseling: A lcohol: MODERATION OF ETOH CONSUMPTION RECOMMENDATION: C ounseling about alcohol consumption D iscussion: - 14: Office or other outpatient visit for the [...] MANAGEMENT, OR A DECISON FOR MINOR SURGERY. The visit on the day of the encounter encompassed interpreting the data and educating the patient [...] have encouraged the patient to call the office. A t Risk Diabetic/ASO/PVD Footcare: T he patient was advised against future self nail/callus care due to inherent risks for infection, loss of limb/life given ( diabetes, neuropathy ). D igital Surgery: D igital surgery was discussed with the patient, We elected to try conservative treatment at the present time, due to the patients medical history and increased asssociated post-operative risks. D igital Treatment: H T- I explained to the patient the possible etiologies of Hammertoes, including genetics/foot type/shoegear/activity level/exercise routine and the risks/benefits of all the different treatment options for their pain including: No treatment at all, Rest, Ice, New/supportive/wider/deeper Shoegear, Digital Padding/Strapping/Taping/Bracing/Gel protective sleeves, Foot/Ankle AFO Bracing, Stretching exercises, Deep Tissue Massage, Arch support/shoe inserts with splay metatarsal padding, and Custom orthoses. I insisted that any digital devices be removed daily and not worn overnight for safety. The patient is to carefully examine the toes daily for any skin irritation while using any splinting or padding device. The advantages and disadvantages of each option were discussed and the patients questions re: shoegear, padding, custom vs prefabricated inserts, activity level, and consistency in home treatment regimens for optimal success were answered to their verbally confirmed satisfaction. S leeann Gear Counseling: S LEEANN Rx - The patient was counseled in great detail on their muscoloskeletal foot and toe deformities which coincided with the dermatological presentations visualized on exam. We discussed how their deformities put the integrity of their feet at risk for potential pedal complications which makes the accomidative diabetic shoes and cutomizable inserts medically necessary. We discussed the different shoe and insert treatment types and options, as well as the important advantages for adhering to regularly wearing these accomidative devices daily. The patient was made aware of the fact that a failure to abide by these recommedations may be deleterious to their foot health as they are able to prevent many pedal complications such as skin irritation, skin ulceration, infection, and even loss of toe/foot/leg/or life. Time was also spent with the patient dispensing and discussing proper diabetic footcare techniques including daily skin moisturization, daily foot inspection for any interruption in skin integrity including open lesions, or sign of infection such as redness/malodor/drainage/swelling. Also discussed and recommended were procedures regarding daily shoe inspection for the presence of internal foreign bodies as well as any visualized irregular shoe or insert wear. Patient questions re: shoes, inserts, and self foot inspections were answered to their satisfaction as the patient verbally confirmed a full understanding of the above information. A Rx for Extra Depth Orthopedic Shoes with 3 pair of custom heat-molded inserts was dispensed. Kushal Bess: T he patient was counseled on the diagnosis, potential etiologies, and treatment options for their skin condition. We discussed the risks and benefits of each option from performing no treatment, to utilizing OTC topical skin creams, prescription topical creams, customized compounded topical medications, and, if necessary, to utilize oral antifungal therapy. We discussed the advantages and disadvantages of each possible treatment and importance for adherence to all the recommended therapies for optimum success and avoid potential complications such as open sore/infection/possible hospitalization. We discussed the potential effectiveness of each topical preparation as well as each ones possible side effects and/or patient medication interactions if oral therapy is selected. Patient questions re: the advantages and disadvantages of each treatment choice, medication use/dosage, successful outcomes, and application consistency were reviewed and the patient verbalized that all answers were clearly understood. The patient was told they can help alleviate symptoms by utilizing moisture absorbant innersoles with activated charcoal and baking soda, applying antifungal sprays daily, aerating toe web spaces at night by putting cotton or lambs wool between the toes, alternating shoe gear daily if possible so they can dry out, changing socks at least once during the day, wearing well-ventilated shoes or sandals. The patient has decided to apply antifungal skin creams to their feet as directed. Rx was sent to their pharmacy at the time of visit. Screening/Special Tests: F all Risk Screening: N o falls in the past year F ALLS: Screening for Future Fall Risk Have you had any falls with injury in the past year? N o * Follow Up: 1 Year * Images: * Sign off status: Completed true * Provider: Chen Crandall DPM Date: 03/17/2025 Generated for [facility] singleton/Nicola/Joshua on: 03/17/2025 12:48 PM EDT History and Physical Notes * HPI (History of Present Illness) Category Sub-Category Detail Notes Category Not es Toe pain Location: B/L feet Duration: several years Course: worse Aggravated by: shoes, any pressure Treatments: change in shoes Skin problems Nature: scaling , redness Location: B/L Duration: several days Course: worse Treatments: Medication (Ciclopir ox Olamine 0.77 Cream), has been effective for the condition in the past At Risk footcare Pt States Last PCP Visit: Date: 5 Examination Category Sub-Category Detail Notes Category Not es Neurological SENSORY: Neurological exa m demonstrates, reduced light touch sensation, reduced sharp/dull discrimination , reduced vibration sensation, in a stocking fashion, at Forefoot, B/L, 5.07 monofilament test performed at plantar aspects of 5 varied sites per foot shows sensation, reduced, at Forefoot, B/L Dermatologic SKIN FINDINGS: Skin exam reveal s Keratotic lesion(s) located at , Plantar Heel(s), B/L, Skin shows sign(s) of, inflammation, interdigital maceration, vesicles, pruritus, B/L 4th Interspace Orthopedic FOOT MORPHOLOGY: (+) Charcot col lapse/destruction noted at MTJ, Right FOOTWEAR EVALUATION: shoe gear propertie s exacerbate patients complaints in relation to their foot/toe deformity DIGITAL DEFORMITIES: Digital contracture , PIPJ, 2-5 B/L, incompl-reducible to push-up test, no over, nor underlapping, there is evidence of shoe producing skin irritation MUSCLE STRENGTH: 5/5 all groups in a symmetrical fashion, B/L General Examination GENERAL APPEARANCE: Reveals a pleasant, alert, well nourished, well-developed, well hydrated individual, who demonstrates proper attention to hygiene/body habitus, and is in no acute distress, Pt serves as own historian for office visit today FOOT EXAM: Lower Extremity Neurological Exa m performed:: Yes Visual exam of foot performed:: Yes Date: 03/17/2025 DATE ORIENTED: person, place, and t jose alfredo Footwear Evaluation Footwear Evaluation performe d:: Yes Ophthalmology Referral DIABETES EYE EXAM Procedure Perform ed:: Yes Date of Exam Performed: 09/12/2024 Diabetic Retinopathy Screening:: Yes Retinal Screening Performed:: Yes Findings of Diabetic Eye Exam:: no retin opathy Vascular DP PULSES (B): 3/4, B/L PT PULSES (B): 3/4, B/L CAPILLARY FILL TIME: immediate, all digi ts, B/L TEMPERTURE GRADIENT (C): normal, warm to cool, proximal to distal, B/L, B/L TROPHIC CONDITION-TEXTURE/ELASTICITY/TURGOR/HAIR GROWTH (B): normal, B/L EDEMA (C): absent, B/L CLAUDICATION (C): denies, B/L REST PAIN: denies, B/L PIGMENTATION: normal, B/L
--- NOTE | 2025-03-30 08:52 | HO.ANESPROP2 ---
Documented by User: Elisa Lopez NP 04/24/25 12:30 HPI - Anesthesia Eval Consult details Narrative: 65 yr old male for bilateral cystoscopy retrograde with bladder stone laser. Scheduled for 05/05/25 s/p left ESWL lithotripsy removal of L stent with TIVA 09/2023. DM: on GLP, metformin Anesthesia Pre-Procedure Meds Is the patient on any of the following meds?: GLP1/DPP4 and SGLT2 Inhib (took Farxiga 03/30/25) [facility] Active Problems Active Problems: All Active Problems (Updated 02/16/25 @ 10:42 by Ryan Prince MD) Bladder calculus (Acute) Hypertension (Acute) Hypercalciuria (Acute) Nephrolithiasis (Acute) Past Medical History Medical History Renal calculi Hyperlipidemia Hypertension Diabetes type 2, controlled Family History Family history of problems with anesthesia: No Surgical History Surgical History Hx of lithotripsy H/O shoulder surgery History of right shoulder replacement Hx of knee surgery History of Problems with Anesthesia: Yes Social History Social History Household Members: Spouse Housing: House Do you presently have visiting nurse or other home services: No Patient Tobacco Use Status: Never used Tobacco Use of substances other than those prescribed or required for medical reasons: No Are you DNR?: No Advance Directives: No Advance Directives Information Provided: Yes service: No Meds Allergies Allergy/AdvReac Type Severity Reaction Status Date / Time No Known Allergies Allergy Verified 05/05/25 08:44 Home Medications ?Medication ?Instructions ?Recorded ?Confirmed ?Last Taken ?Type amlodipine 5 mg tablet 5 mg PO BEDTIME 09/17/23 05/05/25 10/03/23 History atorvastatin 40 mg tablet 40 mg PO BEDTIME 09/17/23 05/05/25 09/16/22 History multivitamin 1 tab PO BEDTIME 09/17/23 05/05/25 09/16/22 History metformin 500 mg tablet 1,000 mg PO BID 03/06/24 05/05/25 Unknown History semaglutide 2 mg/dose (8 mg/3 mL) 2 mg subcut QWEEK 03/06/24 05/05/25 04/27/25 History subcutaneous pen injector (Ozempic) dapagliflozin propanediol 10 mg 10 mg PO DAILY 03/18/25 05/05/25 05/01/25 History tablet (Farxiga) Assessment and Plan Final Anesthetic Review Family History of Problems with Anesthesia: No History of Problems with Anesthesia: Yes Documented by User: Anabel Fowler MD 05/05/25 10:33 [facility] Past Medical History Medical History Renal calculi Hyperlipidemia Hypertension Diabetes type 2, controlled Surgical History Surgical History Hx of lithotripsy H/O shoulder surgery History of right shoulder replacement Hx of knee surgery Social History Social History Household Members: Spouse Housing: House Do you presently have visiting nurse or other home services: No Patient Tobacco Use Status: Never used Tobacco Use of substances other than those prescribed or required for medical reasons: No Are you DNR?: No Advance Directives: No Advance Directives Information Provided: Yes service: No Meds Allergies Allergy/AdvReac Type Severity Reaction Status Date / Time No Known Allergies Allergy Verified 05/05/25 08:44 Home Medications ?Medication ?Instructions ?Recorded ?Confirmed ?Last Taken ?Type amlodipine 5 mg tablet 5 mg PO BEDTIME 09/17/23 05/05/25 10/03/23 History atorvastatin 40 mg tablet 40 mg PO BEDTIME 09/17/23 05/05/25 09/16/22 History multivitamin 1 tab PO BEDTIME 09/17/23 05/05/25 09/16/22 History metformin 500 mg tablet 1,000 mg PO BID 03/06/24 05/05/25 Unknown History semaglutide 2 mg/dose (8 mg/3 mL) 2 mg subcut QWEEK 03/06/24 05/05/25 04/27/25 History subcutaneous pen injector (Ozempic) dapagliflozin propanediol 10 mg 10 mg PO DAILY 03/18/25 05/05/25 05/01/25 History tablet (Farxiga) Exam Airway Mallampati Class: III TM Dist: >3cm Neck ROM: Full Loose/Missing/Broken Teeth: No Heart: RRR Lungs: CTA Assessment and Plan Assessment Anesthesia Assessment: Anesthesia Plan Discussed and Chart Reviewed Final Anesthetic Review NPO: Yes ASA Class: II Final Preanesthetic Review: Meds/Allgs Chart Reviewed, Consent Obtained/Reviewed and Anes Risks/Benef Reviewed Patient Risk: Low Procedure Risk: Low Anesthetic Plan Anesthetic Plan: GA Disposition: Standard PACU
[2025-05-05] VITALS (9 sets, daily range): BP systolic 110–120; BP diastolic 72–78; PULSE 61–80; RESP 15–18; TEMP 36.2–36.7; O2SAT 95–100; BMI 25.1
--- NOTE | ~2025-05-05 | FL_ITS ---
EXAMINATION: FL GUIDANCE ONLY HISTORY: retrograde/bladder stone COMPARISON: Correlation is made with an unenhanced CT of the abdomen and pelvis dated 12/18/2024. TECHNIQUE: Fluoroscopy time: 13.6 seconds. Cumulative Dose: 3.36 mGy. Images: 3. FINDINGS: Images from a bilateral retrograde ureterogram are submitted. There is opacification of the distal left ureter which is normal in caliber. There is opacification of the right renal collecting system and proximal ureter which are unremarkable in appearance. FL/FL guidance in OR IMPRESSION: Fluoroscopy during procedure. Please see procedure report for additional information. Electronically signed by: Parag Rodriguez MD 05/05/2025 11:07 AM EDT
[2025-05-05] MEDS: Lactated Ringers 1,000 ML 100 ML IVCONT (09:14)
[2025-05-05 09:20] LABS: Glucose, Whole Blood 128 mg/dL (60-115)
--- NOTE | 2025-05-05 09:52 | MHC.SHP ---
Pre-Procedural Eval Section A - 24 Hr Update-Section A only Date of Service: 05/05/25 The patient is an INPATIENT: No The patient has been examined within 24 hours of the surgical procedure. The History & Physical has been completed within 30 days and I have reviewed it.: Yes Section B - Complete if H&P > 30 days Chief Complaint: Calculus of bladder, h/o bilateral renal calculi Allergies: Allergies Allergy/AdvReac Type Severity Reaction Status Date / Time No Known Allergies Allergy Verified 05/05/25 08:44 Plan Diagnosis/Plan: Unchanged I have reviewed the history and physical and performed a pertinent physical examination on my patient. No changes have occurred unless specified. Cystoscopy, bladder stone lithotripsy, bilateral retrogrades. Discussed risks to include but not limited to, blood in the urine, burning with urination, urgency. Time Spent With Patient Time: Total time managing care of this patient today ____ minutes.
--- NOTE | 2025-05-05 09:56 | W.PM.OPN ---
Operative Note Operative Note Date of Service: 05/05/25 Narrative: PREOP DIAGNOSIS: Bladder stone, history of renal calculi POSTOP DIAGNOSIS: Bladder stone, history of bilateral renal PROCEDURE: Cystoscopy bilateral retrogrades, cysto litholapaxy, laser stone SURGEON: Ryan Prince MD ANESTHESIA: General Indications: Michele has had bilateral kidney and ureteral stones, prior left UPJ stone 1.3 cm is visualized in the bladder Details of procedure: The patient was brought into the operating room placed on the OR table in supine position. 2 g of Ancef IV. General anesthesia was administered. The patient was repositioned into lithotomy position, prepped and draped in the usual sterile fashion. Time-out was done per protocol. 2% lidocaine urojet was passed transurethrally into the bladder. A 22 fr cystoscope was placed transurethrally into the bladder. The bulbous urethra was within normal limits. The prostatic urethra was obstructive. The right and left ureteral orifices were visualized. The entire bladder was visualized. There were no suspicious bladder lesion seen. The bladder stone was visualized and laser fiber was used to fragment the stone. The stone fragments were irrigated out. The cystoscope was removed. 2% lidocaine urojet was passed transurethrally into the bladder. The patient was brought out of anesthesia and taken to recovery in stable condition. Complications: None EBL: minimal (<5 mL)
== END 2025-05-05 12:35 | disposition home or self-care (01) ==
PROVIDERS: PCP Family Medicine; Visit Provider Urology
PROC: (CPT 52317; principal; 2025-05-05 10:50)
DX: N21.0 Calculus in bladder (principal); Z87.442 Personal history of urinary calculi; R82.994 Hypercalciuria; I10 Essential (primary) hypertension; E78.5 Hyperlipidemia, unspecified; E11.9 Type 2 diabetes mellitus without complications; Z79.84 Long term (current) use of oral hypoglycemic drugs; Z79.85 Long-term (current) use of injectable non-insulin antidiabetic drugs; Z79.899 Other long term (current) drug therapy; Z98.890 Other specified postprocedural states
CPT/HCPCS: 52317; 82947; 88300; J0131; J0690; J2003; J2250; J2405; J2704; J3010; Q9967

== ENCOUNTER → 2025-05-05 08:31 | Outpatient (BNV) | payer BC, SELFPAY | PROVIDERS: PCP Family Medicine; Visit Provider Urology | DX: N21.0 Calculus in bladder (principal) | CPT/HCPCS: 52317; 74420 ==

== ENCOUNTER 2025-05-22 15:23 | Outpatient (AMB) | payer BC, SELFPAY ==
--- OUTSIDE RECORDS SUMMARY | 2024-03-06 10:00 | XMS_ITS ---
Author Organization [facility] Address [address] [place] [address] Care Team Providers Care Bottom Liquor Attendant Name Role Phone Pk Thompson Primary Care Provider Roberto Garcia Unavailable [phone] Darvin Hernández [phone] Pretty Encounters Encounter Location Date Provider Diagnosis [facility] [address] 03/06/2024 Darvin Hernández Plan Of Treatment Next Appt Details Provider Name:Roberto Crandall , 03/30/2026 08:45:00 AM, [address] [place], [address], Progress Notes * Julien LUNA BDOB: [birth year] (65 yo M)Acc No.[id number]:03/06/2024 Progress Note Patient: Celestine BAIG Julien Ross Provider: Sulma Hernández DPM :1960 A ge:64 Y S ex:Male Date:03/06/2024 Address: [employer] [facility] [id number] Pcp:Pk Thompson Subjective: * Chief Complaints: * [...] 0 03/06/2024 Generated for Duke Mancilla on: 0 05/22/2025 05:40 PM EDT
--- NOTE | 2025-05-22 15:35 | A.OFFVIS_ITS ---
Intake Visit Reasons: bladder stone follow up Intake Note: Patient presents today for bladder stone follow up Urology Meds- Tamsulosin Allergies to Antibiotic- No Known Allergies Blood Thinner- None [place] Protection Maintainer Required: No Accompanied by: Self / Same As Patient Allergies No Known Allergies Allergy (Verified 05/22/25 15:36) HPI Comments Details: 05/22/25-- History of Present Illness The patient is a 65-year-old male presenting with nephrolithiasis and an enlarged prostate. The patient has a history of nephrolithiasis, with a recent cystoscopy and bladder stone lithotripsy performed on May 05, 2025. The stone was sent to pathology, but only gross documentation was done without fragment sent for analysis. A previous stone analysis a year ago revealed calcium oxalate composition. The patient was referred to nephrology previously for evaluation, Dietary recommendations included a 2 g sodium diet and maintaining urine output of 2 liters per day. The patient also has an enlarged prostate, with a recommendation for green light laser therapy if urinary symptoms worsen. Currently, the patient is managed with tamsulosin and is advised to monitor symptoms. Results - Previous stone analysis: Calcium oxalate composition Plan 1. Nephrolithiasis - Plan to repeat 24-hour urine collection to assess changes in stone formation risk factors. - Dietary recommendations include a 2 g sodium diet and maintaining urine output of 2 liters per day. 2. Enlarged Prostate - Consideration for green light laser therapy if urinary symptoms worsen. Current management with tamsulosin and monitoring of symptoms. 03/16/2025-telehealth follow-up History of Present Illness - The patient is a 65-year-old male presenting with symptoms related to a kidney stones. - Prescribed Flomax and advised to strain urine, the patient reports not passing the stone and continues to experience symptoms. - A follow-up CT scan on 12/18/24 showed the stone had moved to the bladder. - History of kidney stones requiring interventions, including ureteroscopy and lithotripsy. - Denies hematuria but reports discomfort during urination and intermittent uri nary obstruction. Results - Follow-up CT scan on 12/18/24: left kidney proximal ureteral stone moved to the bladder, no other renal calculi visualized. 02/16/25-- - The patient is a 65 year old male presenting for follow-up nephrolithiasis. - The patient reported an intermittent urinary flow blockade, experiencing this problem since early this year, described as discomfort at the penis end when blockage feels like a rock halting urination. - Tests for urinary tract infections and PSA levels conducted previously returned normal, eliminating infection concerns. - CAT scan verified the presence of a bladder stone, once believed to be initially located in a kidney. Discussion Notes I reviewed the patient's CT scan reporting a bladder stone likely originating from earlier kidney stone fragments. We discussed the management plan involving Flomax (tamsulosin) administration to potentially relax bladder muscles aiding stone passage. I acknowledged the patient's concern regarding intermittent uri nary flow and brief discomfort noting potential for stone-related obstructions. We considered continuing Flomax for a few weeks, allowing potential stone expulsion into a provided urine strainer. I've informed the patient potential future procedures, notably a cystoscopy, if symptoms persist and no stone passage occurs. No infection markers detected in today's urine analysis, confirming no active infection. Results - Imaging: CT scan 12/18/24--The previously seen proximal left ureteral calculus is currently within the bladder. No additional urinary calculus identified. - Laboratory: Urinalysis WNL, no signs of infection 02/18/24--Julien is followed for left nephrolithiasis, he was initially evaluated and treated in Sep, this year, for a 1.3 cm left obstructing stone with stent placement followed by Left ESWL and stent removal. FU renal US 11/07/23 indicated a 6 mm fragment in the left lower pole. He was scheduled for repeat left ESWL with me on--01/09/24, however KUB Xray prior to procedure and simulation intra op with Fluoro and ultrasound failed to identify remainging fragment. He completed 24 hr urine which I have reviewed with him, notable for hypercalciuria, urine Ca - 344. urine Sodium was also elevated and low sodium diet was discussed. He is hydrating well and adding lemon to the water daily. Also reviewed stone analysis, Ca Ox. Will refer to Nephrology, fu in one year, CT stone protocol prior. Pt to cont vit B6 but may discontinue daily vit C. 30 minutes spent in review of records pertaining to this visit and including [id number] discussion with the patient and documentation of this visit. 11/16/23--Michele is a pleasant male. He is a patient of Dr. Garner. He seen for the following urologic conditions - nephrolithiasis 6 mm remnant stone on renal ultrasound Has had occasional symptoms Would like to move ahead with left ESWL repeat Nephrolithiasis Background diabetes Imaging - CT 1.3cm stone left UPJ Intervention - stent placement with left ESWL Therapeutic plan - encourage fluids, lemon juice, vitamin B6 PFSH Medical History Renal calculi Hyperlipidemia Hypertension Diabetes type 2, controlled Surgical History Hx of lithotripsy H/O shoulder surgery History of right shoulder replacement Hx of knee surgery Social History Household Members: Spouse Housing: House Do you presently have visiting nurse or other home services: No Patient Tobacco Use Status: Never used Tobacco service: No Review of Systems Const All systems reviewed & are unremarkable except as noted in HPI and below Reports no additional complaints Eyes Reports no additional complaints ENT Reports no additional complaints Card Reports no additional complaints Resp Reports no additional complaints GI Reports no additional complaints Reports as per HPI Musc Reports no additional complaints Skin/Breast Reports system reviewed and no additional complaints, except as documented Neuro Reports no additional complaints Psych Reports no additional complaints Endo Reports no additional complaints Live/Lymph Reports no additional complaints Aller/Immun Reports no additional complaints Assessment & Plan Assessment & Plan (1) Nephrolithiasis: Code(s): N20.0 - Calculus of kidney Category: Medical (2) Hypercalciuria: Code(s): R82.994 - Hypercalciuria Category: Medical (3) Bladder calculus: Code(s): N21.0 - Calculus in bladder Category: Medical Plan Plan 1. Nephrolithiasis - Plan to repeat 24-hour urine collection to assess changes in stone formation risk factors. - Dietary recommendations include a 2 g sodium diet and maintaining urine output of 2 liters per day. 2. Enlarged Prostate - Consideration for green light laser therapy if urinary symptoms worsen. Current management with tamsulosin and monitoring of symptoms. Orders: Orders AMB Urinalysis Automated Today Z13.9 - Encounter for screening, unspecified Patient Instructions: The patient had an opportunity to ask questions regarding treatment plan. The patient expressed understanding and agreement with the above treatment plan. The patient is aware they should contact our office by phone for worsening of their current condition or the appearance of new symptoms. Compliance is encouraged with any medications and followup testing that is ordered. It is a privilege to be allowed the opportunity to participate in the urologic care of your patient. If you have any questions or concerns regarding treatment for the above conditions please do not hesitate to contact me. The office telephone contact is [phone]. This note is constructed in part using voice recognition software. While every effort has been made to ensure accuracy ssas developer errors may have been included. Yours sincerely, Ryan Prince MD Scribe Plan - Not visible on output: Patient was informed and verbally consented to the use of an ambient scribe for clinic note documentation during this visit. Coding Level of Care Code Est Pt Level 3 (16973) Complex EM visit Add On G2211 Diagnoses Nephrolithiasis N20.0 Hypercalciuria R82.994 Bladder calculus N21.0
--- OUTSIDE RECORDS SUMMARY | 2025-05-22 17:40 | XMS_ITS | Clinical Summary ---
Author Organization [facility] Address [address] [place] [phone] Phone Care Team Providers Care Step Finisher Name Role Phone Pk Thompson MD Primary Care Provider [phone] Allergies No known active allergies Medications atorvastatin (LIPITOR) 40 MG tablet Take 40 mg by mouth daily. Active amLODIPine (NORVASC) 5 MG tablet Take 5 mg by mouth daily. Active FREESTYLE JYOTI 3 PLUS SENSOR Shauna USE TO MONITOR GLUCOSE AND CHANGE SENSOR EVERY 15 DAYS 4 Active fluorouraciL (EFUDEX) 5 % cream Apply topically. 3 Active FARXIGA 10 mg tablet Take 10 mg by mouth daily. Active metFORMIN (GLUCOPHAGE-XR) 500 MG 24 hr tablet Take 2 tablets by mouth 2 (two) times a day. 4 Active OZEMPIC 2 mg/dose (8 mg/3 mL) subcutaneous injection pen 2 MG SUBCUTANEOUS INJECTION EVERY WEEK,INSTR:IN THE ABDOMEN, THIGH, OR UPPER ARM Active Immunizations Immunization Administration Dates Next Due Influenza, Unspecified Formulation 11/30/2015(De ferred: Other - 00) Pneumococcal polysaccharide PPSV23 12/01/2015(De ferred: Other - 00) Social History Tobacco Use Types Packs/Day Years Used Date Smoking Tobacco: Never Alcohol Use Standard Drinks/Week Comments Not Asked 0 (1 standard drink = 0.6 oz pur e alcohol) Education Answer Date Recorded Are you interested in more education? Not on rivas e 01/05/2023 Are you concerned about learning? Not on file 01/05/2023 No 01/05/2023 No 01/05/2023 Digital Access Answer Date Recorded No 02/05/2023 No 02/05/2023 No 02/05/2023 Reliable internet access at home? Not on file 02/05/2023 Device with a working camera? Not on file Sex and Gender Information Value Date Recorded Sex Assigned at Male 09/15/2024 9:30 AM EST Legal Sex Male 10:41 AM EST Gender Identity Male 09/15/2024 9:30 AM EST Sexual Orientation Straight 09/15/2024 9: 30 AM EST Last Filed Vital Signs Vital Sign Reading Time Taken Comments Blood Pressure 163/80 11/17/2016 5:09 PM EST Pulse - - Temperature - - Respiratory Rate - - Oxygen Saturation - - Inhaled Oxygen Concentration - - Weight 83.9 kg (185 lb) 09/18/2024 10:03 AM EST Height 182.9 cm (6') 09/18/2024 10:03 AM EST Body Mass Index 25.09 09/18/2024 10:03 AM EST Plan of Treatment Health Maintenance Due Date Last Done Comments Adult Td,Tdap Booster 1961 LIPID PANEL 1961 DEPRESSION SCREENING 1973 HEPATITIS C SCREENING 1979 HIV ONE-TIME SCREENING (18-65 YEARS) 1979 COLOGUARD 2006 COLONOSCOPY 2006 COLORECTAL CANCER SCREENING 2006 FIT TEST 2006 FOBT 2006 SIGMOIDOSCOPY 2006 VIRTUAL COLONOSCOPY 2006 PNEUMOCOCCAL VACCINES (50+ years) (1 of 1 - PCV) 2011 CREATININE LEVEL 12/01/2016 12/02/2015, , 11/18/2015 SCREENING FOR DIABETES 12/01/2018 6, 12/01/2015, 11/30/2015 ZOSTER VACCINES (2 of 2) 06/08/2019 04/13/2019 RSV VACCINE (1 - Risk 60-74 years 1-dose series) 2021 COVID-19 VACCINE (2 - 2024-25 season) 2024 11/30/2020 INFLUENZA VACCINE (#1) 2025 3, 06/18/2020, 06/20/2019, Additional history exists SMOKING STATUS SCREENING (Once After 26 Yrs) Completed 11/17/2016 HEPATITIS A VACCINES Aged Out No long er eligible based on patient's age to complete this topic HIB VACCINES Aged Out No longer eligi ble based on patient's age to complete this topic MENINGOCOCCAL VACCINES (ACWY) Aged Out No longer eligible based on patient's age to complete this topic MENINGOCOCCAL VACCINES (B) Aged Out N o longer eligible based on patient's age to complete this topic Medical Devices Not on file Procedures Procedure Name Priority Date/Time Associated Diagnosis Comments GLUCOSE Routine 12/02/2015 5:36 AM EDT BUN/CREATININE Routine 12/02/2015 5:36 AM EDT from Last 3 Months or Most Recently Relevant to Health Maintenance Results * BUN/creatinine (12/02/2015 5:36 AM EDT) Plasma Urea Nitrogen 9 8 - 25 mg/dL [facility] Plasma Creatinine 0.65 0.60 - 1.50 mg/dL [facility] eGFR >60 mL/min/1.7 3m2 [facility] Comment: Abnormal if <60 mL/min/1.73m2. If patient is -Fijian, multiply the result by 1.21. 12/02/2015 5:36 AM EDT 12/02/2015 5:56 AM EDT Comment:BLOOD us Marley Zayas MD LAB BLOOD ORDERABLES Edited Result - Final [facility] [address] [place] [address] * (ABNORMAL) Glucose (12/02/2015 5:36 AM EDT) Plasma Glucose 199(Abnor alyce H) 70 - 110 mg/dL [facility] 12/02/2015 5:36 AM EDT 12/02/2015 5:56 AM EDT Comment:BLOOD Marley Zayas MD LAB BLOOD ORDERABLES Edited Result - Final [facility] [address] [place] [address] from Last 3 Months or Most Recently Relevant to Health Maintenance Insurance [place] [address] [facility] [address] [place] [address] [place] [address] [place] [address] [place] [address] [place] [address] Care Teams Step Finisher Relationship Specialty Start Date End Date Pk Thompson MD [address] [place], [place] [id number] PCP - General Family Medicine 09/15/24 Additional Source Comments The information contained in this document represents components of the legal health record. It is not the complete legal health record.[facility]
--- OUTSIDE RECORDS SUMMARY | 2025-05-22 17:40 | XMS_ITS | Patient Health Record ---
Author Organization [facility] Sudha Crowe Address [address] [facility] [place] [address] Care Team Providers Care Heater Helper Name Role Phone Pk Thompson Primary Care Provider Roberto Garcia Unavailable [phone] Allergies No Known Allergies Results Component Value Reference Range Notes HEMOGLOBIN A1C (GLYCOHEMOGLO BIN) Reviewed date:03/17/2025 08:55:22 AM Interpretation: Performing Lab: Notes/Report: HEMOGLOBIN A1C % (HH) 6.7 HEMOGLOBIN A1C (GLYCOHEMOGLO BIN) Reviewed date:03/17/2025 08:52:36 AM Interpretation: Performing Lab: Notes/Report: HEMOGLOBIN A1C % (HH) 6.7 Reason For Referral No Information Medications Medication SIG (Take, Route, Frequency, Duration) Notes Start Date End Date Status amLODIPine Besylate 5 MG 1 tablet Orally Once a day; Duration: 30 day(s) Active Atorvastatin Calcium 40 MG 1 tablet Orally Once a day; Duration: 30 day(s) Active metFORMIN HCl 500 MG 1 tablet with a darshan l Orally Once a day; Duration: 30 day(s) Active Physical Therapy . . . 2-3x/week; [...] on feet; Duration: 30 days 03/17/2025 Active Farxiga Active Ozempic Active Immunizations Vaccine Route Administration Date Status Comme nts Influenza Unknown 06/10/2024 Administered Social History Tobacco Use: Social History Observation [...] Problem Acquired hammer toe of right foot (4963873873212550 ) Other hammer toe(s) (acquired), right foot (M20.41) Active confirmed Problem Acquired hammer toe of left foot (9770844721191305 ) Other hammer toe(s) (acquired), left foot (M20.42) Active confirmed Problem Polyneuropathy due to type 2 diabetes mellitus (701574591) Type 2 diabetes mellitus with diabetic polyneuropathy (E11.42) Active confirmed Vital Signs Blood pressure diastolic 65 mm Hg 03/17/2025 Height 6 ft in 03/17/2025 Blood pressure systolic 128 mm Hg 03/17/2025 Weight 225 lbs 03/17/2025 BMI 30.51 kg/m2 03/17/2025 Encounters Encounter Location Date Provider Diagnosis [facility] [address] [place] [address] 03/17/2025 Roberto Crandall Type 2 diabetes mellitus with diabetic polyneuropathy E11.42 ; Other hammer toe(s) (acquired), right foot M20.41 ; Other hammer toe(s) (acquired), left foot M20.42 and Tinea pedis of both feet B35.3 Assessments Encounter Date Diagnosis (ICD Code) Assessment Notes Treatment Notes Treatment Clinical Notes Section Notes 03/17/2025 Other hammer toe(s) (acquired), right foot (ICD-10 - M20.41) Patient Educated with: DIABETIC FOOT CARE INSTRUCTIONS. pdf (DIABETIC FOOT CARE INSTRUCTIONS. pdf) 03/17/2025 Type 2 diabetes mellitus with diabetic polyneuropathy (ICD-10 - E11.42) 03/17/2025 Other hammer toe(s) (acquired), left foot (ICD-10 - M20.42) 03/17/2025 Tinea pedis of both feet (ICD-10 - B35.3) Patient Educated with: ATHELETE .pdf (ATHELETE .pdf) Plan Of Treatment Pending Test Test Name Order Date X ray : Ankle, left 2V 03/01/2022 X ray : Ankle, right 2V 03/01/2022 X ray : Foot, left 3V 03/01/2022 X ray : Foot, right 3V 03/01/2022 Next Appt Details Provider Name:Roberto Crandall , 03/30/2026 08:45:00 AM, [address] [place] [address], [id number], Insurance Providers Payer Name Payer Address Payer Phone Subscriber Number Group Number Insured Name Patient Relationship to Insured Coverage Start Date Coverage End Date [facility] [id number] [place] [address] [id number] Julien Hein Self - patient is the insured Medical (General) History Medical History History ICD Code Chicken pox Diabetes mellitus Joint implants/screws Hypercholesterolemia Surgical History Surgery Date(Month/Year) knee surgery, left 1974, 2010 knee surgery, right 1975, 2012 shoulder dislocation 1977, 1979 shoulder replacement 2017 carpal tunnel both hands 01-07-22
--- OUTSIDE RECORDS SUMMARY | 2025-05-22 17:40 | XMS_ITS | Encounter Summary ---
Author Organization [facility] Address [address] [place] [address] Phone Care Team Providers Care Avionics Electronics Technician Name Role Phone Pk Thompson MD Primary Care Provider [phone] Encounter Details Date Type Department Care Team (Late st Contact Info) Description 09/18/[address], [facility] - [address], [address] [place] [id number] Social History Tobacco Use Types Packs/Day Years [...] Orientation Straight 09/15/2024 9: 30 AM EST documented as of this encounter Plan of Treatment Not on file documented as of this encounter Visit Diagnoses Not on filedocumented in this encounter Care Teams Avionics Electronics Technician Relationship Specialty Start Date End Date Pk Thompson MD [address] [place], [place] [phone] PCP - General Family Medicine 09/15/24 documented as of this encounter Additional Source Comments The information contained in this document represents components of the legal health record. It is not the complete legal health record.[facility]
== END 2025-05-22 16:25 | disposition home or self-care (01) ==
LOC: HO.HUSH 15:24
PROVIDERS: PCP Family Medicine; Visit Provider Urology
DX: N20.0 Calculus of kidney (principal); R82.994 Hypercalciuria; N21.0 Calculus in bladder; Z13.9 Encounter for screening, unspecified
CPT/HCPCS: 99213

== ENCOUNTER → 2025-05-22 15:23 | Outpatient (BNVA) | payer BC, SELFPAY | PROVIDERS: PCP Family Medicine; Visit Provider Urology | DX: N20.0 Calculus of kidney (principal) | CPT/HCPCS: 81003 ==

== ENCOUNTER 2025-08-10 07:25 | Outpatient (AMB) | payer BC, SELFPAY ==
--- OUTSIDE RECORDS SUMMARY | 2024-03-06 09:00 | XMS_ITS ---
Author Organization [facility] celestine [place] Address [address] [facility] [place] [address] Care Team Providers Care Grinding Mill Operator Name Role Phone Pk Thompson Primary Care Provider UnavailRoberto Yun Unavailable [phone] Darvin Downey Unavailable [phone] Pretty Encounters Encounter Location Date Provider Diagnosis [address] [address] 03/06/2024 Darvin Downey Plan Of Treatment Next Appt Details Provider Name:Roberto Crandall , 03/30/2026 08:45:00 AM, [address] [place], [address], Progress Notes * Julien LUNA BDOB: [birth year] (65 yo M)Acc No.[id number]:03/06/2024 Progress Note Patient: Celestine BAIG Julien Cody Provider: Sulma Hernández DPM :1960 A ge:64 Y S ex:Male Date:03/06/2024 Address: [id number] Pcp:Pk Thompson Subjective: * Chief Complaints: * [address] Pretty. * Medical History: Objective: * Vitals: Assessment: Plan: * Treatment: * Images: * The named appointment provid er may or may not be the originator of this progress note, and it is not deemed complete until electronically signed by the appointment provider. Sign off status: Pending * Provider: Sulma Hernández DPM Date: 0 03/06/2024 Generated for Duke Arreola/Joshua on: 10/11/2024 07:27 AM EST
--- NOTE | 2025-08-10 07:25 | A.OFFVIS_ITS ---
Intake Visit Reasons: 12W/Litholink (set) Intake Note: Patient presents today for bladder stone follow up [facility]O L[facility] 07/01/25 Urology Meds- Tamsulosin Allergies to Antibiotic- No Known Allergies Blood Thinner- None Lead Generation Representative Required: No Accompanied by: Self / Same As Patient Allergies No Known Allergies Allergy (Verified 08/10/25 07:26) Medication List - Last Reconciled 08/10/25 by Ryan Prince MD amlodipine 5 mg PO BEDTIME atorvastatin 40 mg PO BEDTIME dapagliflozin propanediol (Farxiga) 10 mg PO DAILY metformin 1,000 mg PO BID multivitamin 1 tab PO BEDTIME semaglutide (Ozempic) 2 mg subcut QWEEK tamsulosin 0.4 mg PO BEDTIME 90 days HPI Comments Details: 08/10/25--Michele is followed for nephrolithiasis telehealth follow-up today for discussion on 24 hour urine collection also patient is followed for BPH on tamsulosin. History of Present Illness The patient is a 65 year old individual presenting with a telehealth follow-up for nephrolithiasis and benign prostatic hyperplasia (BPH). The patient has a history of making kidney stones and completed a 24-hour urine collection at home for evaluation. The patient is also followed for BPH and is currently taking tamsulosin to help with urine flow. Results - 24-hour Urine Collection: - Volume: Approximately 3 liters - Calcium: 402 (normal < 250) - Sodium: 204 (normal 50-150) - Oxalate: 48 (normal 20-40) - Uric Acid: 1071 (normal <800) Plan 1. Nephrolithiasis - The patient's 24-hour urine collection results were reviewed, showing elevated calcium at 402, elevated sodium at 204, and oxalate at the higher end of normal at 48. - The patient's high urine volume of approximately 3 liters was noted as a positive factor. - A referral will be sent to Nephrology for further evaluation of the abnormal urine values and to discuss potential medication options. - The patient was advised to decrease sodium intake to no more than 2,500 mg per day by reading food labels. - It was recommended to eat in moderation, high-oxalate foods, such as nuts, chocolate, tea, and green leafy vegetables.- The biomedical repair technician will mail the patient the lab results along with a diet information sheet. - A follow-up kidney ultrasound is scheduled for nine months, with a subsequent follow-up visit to be arranged at that time. 2. Benign Prostatic Hyperplasia (Bph) - The patient will continue taking tamsulosin (Flomax) to aid with urine flow. - A PSA blood test will be ordered to monitor prostate health, and the patient can have it drawn at any associated lab. 05/22/25-- The patient is a 65-year-old male presenting with nephrolithiasis and an enlarged prostate. The patient has a history of nephrolithiasis, with a recent cystoscopy and bladder stone lithotripsy performed on May 05, 2025. The stone was sent to pathology, but only gross documentation was done without fragment sent for analysis. A previous stone analysis a year ago revealed calcium oxalate composition. The patient was referred to nephrology previously for evaluation, Dietary recommendations included a 2 g sodium diet and maintaining urine output of 2 liters per day. The patient also has an enlarged prostate, with a recommendation for green light laser therapy if urinary symptoms worsen. Currently, the patient is managed with tamsulosin and is advised to monitor symptoms. Results - Previous stone analysis: Calcium oxalate composition Plan 1. Nephrolithiasis - Plan to repeat 24-hour urine collection to assess changes in stone formation risk factors. - Dietary recommendations include a 2 g sodium diet and maintaining urine output of 2 liters per day. 2. Enlarged Prostate - Consideration for green light laser therapy if urinary symptoms worsen. Current management with tamsulosin and monitoring of symptoms. 03/16/2025-telehealth follow-up History of Present Illness - The patient is a 65-year-old male presenting with symptoms related to a kidney stones. - Prescribed Flomax and advised to strain urine, the patient reports not passing the stone and continues to experience symptoms. - A follow-up CT scan on 12/18/24 showed the stone had moved to the bladder. - History of kidney stones requiring interventions, including ureteroscopy and lithotripsy. - Denies hematuria but reports discomfort during urination and intermittent urinary obstruction. Results - Follow-up CT scan on 12/18/24: left kidney proximal ureteral stone moved to the bladder, no other renal calculi visualized. 02/16/25-- - The patient is a 65 year old male presenting for follow-up nephrolithiasis. - The patient reported an intermittent urinary flow blockade, experiencing this problem since early this year, described as discomfort at the penis end when blockage feels like a rock halting urination. - Tests for urinary tract infections and PSA levels conducted previously returned normal, eliminating infection concerns. - CAT scan verified the presence of a bladder stone, once believed to be initially located in a kidney. Discussion Notes I reviewed the patient's CT scan reporting a bladder stone likely originating from earlier kidney stone fragments. We discussed the management plan involving Flomax (tamsulosin) administration to potentially relax bladder muscles aiding stone passage. I acknowledged the patient's concern regarding intermittent urinary flow and brief discomfort noting potential for stone-related obstructions. We considered continuing Flomax for a few weeks, allowing potential stone expulsion into a provided urine strainer. I've informed the patient potential future procedures, notably a cystoscopy, if symptoms persist and no stone passage occurs. No infection markers detected in today's urine analysis, confirming no active infection. Results - Imaging: CT scan 12/18/24--The previously seen proximal left ureteral calculus is currently within the bladder. No additional urinary calculus identified. - Laboratory: Urinalysis WNL, no signs of infection 02/18/24--Julien is followed for left nephrolithiasis, he was initially evaluated and treated in Sep, this year, for a 1.3 cm left obstructing stone with stent placement followed by Left ESWL and stent removal. FU renal US 11/07/23 indicated a 6 mm fragment in the left lower pole. He was scheduled for repeat left ESWL with me on--01/09/24, however KUB Xray prior to procedure and simulation intra op with Fluoro and ultrasound failed to identify remainging fragment. He completed 24 hr urine which I have reviewed with him, notable for hypercalciuria, urine Ca - 344. urine Sodium was also elevated and low sodium diet was discussed. He is hydrating well and adding lemon to the water daily. Also reviewed stone analysis, Ca Ox. Will refer to Nephrology, fu in one year, CT stone protocol prior. Pt to cont vit B6 but may discontinue daily vit C. 30 minutes spent in review of records pertaining to this visit and including [id number] discussion with the patient and documentation of this visit. 11/16/23--Michele is a pleasant male. He is a patient of Dr. Garner. He seen for the following urologic conditions - nephrolithiasis 6 mm remnant stone on renal ultrasound Has had occasional symptoms Would like to move ahead with left ESWL repeat Nephrolithiasis Background diabetes Imaging - CT 1.3cm stone left UPJ Intervention - stent placement with left ESWL Therapeutic plan - encourage fluids, lemon juice, vitamin B6 PFSH Medical History Renal calculi Hyperlipidemia Hypertension Diabetes type 2, controlled Surgical History Hx of lithotripsy H/O shoulder surgery History of right shoulder replacement Hx of knee surgery Social History Household Members: Spouse Housing: House Do you presently have visiting nurse or other home services: No Patient Tobacco Use Status: Never used Tobacco service: No Review of Systems Const All systems reviewed & are unremarkable except as noted in HPI and below Reports no additional complaints Eyes Reports no additional complaints ENT Reports no additional complaints Card Reports no additional complaints Resp Reports no additional complaints GI Reports no additional complaints Reports as per HPI Musc Reports no additional complaints Skin/Breast Reports system reviewed and no additional complaints, except as documented Neuro Reports no additional complaints Psych Reports no additional complaints Endo Reports no additional complaints Live/Lymph Reports no additional complaints Aller/Immun Reports no additional complaints Telehealth Telehealth Telehealth Platform: [facility] Location of provider rendering services: practice address Location of patient: address on file Patient Identification confirmed using: Name, : Yes Telehealth method: video Patient verbally consented to treatment: Yes Patient verbally consented to billing insurance company: Yes Patient informed of any privacy concerns related to visit: Yes Results Reviewed Results Reviewed: Date of Service: 12/18/24 CT abdomen and pelvis without contrast Comparison: CT/MT/SR - CT ABDOMEN PELVIS WO IV CON - 09/17/23 17:29 EST Findings: No consolidation or effusion. The previous left-sided proximal ureteral calculus is now present within the bladder. There is no additional renal calculus bilaterally. Small left cortical cyst and bilateral peripelvic cysts are noted. The unenhanced liver, gallbladder, spleen, adrenal glands and pancreas are unremarkable. Moderate diffuse atherosclerotic disease. Diverticulosis without evidence of diverticulitis. There is fecal retention throughout the colon. No small bowel obstruction, free air or abscess. There is multilevel degenerative change most pronounced at L5-S1. No acute osseous finding. Impression: The previously seen proximal left ureteral calculus is currently within the bladder. No additional urinary calculus identified. Peripelvic cysts are present versus less likely fullness of the collecting system. Incidental findings as detailed. ADAM: 11/16/23-1403 STATUS: COMP REQ : [id number] RECD: 11/19/[address]: Wm Tovar MD COMP: 11/27/23 ENTERED: 11/19/23-[address]: SILVA GARNER NP ORDERED: Kidney Stone QUERIES: Kidney Stone Source: [id number] Test Result Flag Reference Component 1 SEE NOTE Calcium Oxalate Dihydrate (Weddellite) 20% Calcium Oxalate Monohydrate (Whewellite) 80% See Note 1 Stone Weight 0.135 g Note 1 This test was developed and its analytical performance characteristics have been determined by [employer]. It has not been cleared or approved by the FDA. This assay has been validated pursuant to the CLIA regulations and is used for clinical purposes. THIS TEST WAS PERFORMED AT: [facility] [address] [id number] WILLIAM VÁSQUEZ MD Stone Source KIDNEY STONE Date of Service: 01/09/24 EXAMINATION: XR ABDOMEN KUB CLINICAL INDICATION: Left kidney stones COMPARISON: KUB on 09/26/2023 TECHNIQUE: AP view of the abdomen. FINDINGS: AP supine x-rays of the abdomen show nonspecific bowel gas pattern. No abnormal bowel dilatation is seen. There is normal visualization of rectal bowel gas. Bilateral kidneys are partially obscured by overlying colon bowel gas and fecal shadows especially in descending colon. No abnormal calcification could be seen. IMPRESSION: 1. Interval resolution of left lower pole renal calculus and removal of left ureteric double pigtail stent. No radiopaque renal stone could be seen on the current examination limited by overlapping bowel gas and fecal shadows. 2. No signs of intestinal obstruction on supine x-rays. Date of Service: 11/07/23 EXAMINATION: US RETROPERITONEAL LIMITED (RENAL ONLY) CLINICAL INFORMATION: Obstructed reflux uropathy.. COMPARISON: None available. TECHNIQUE: Retroperitoneal ultrasound was performed FINDINGS: RIGHT KIDNEY: 12.5 x 7.2 x 7.0 cm (SAG x AP x TRV). The kidney is normal in size, contour, and echogenicity. Renal cortical thickness is normal. No calculi or focal parenchymal lesions. There is mild peripelvic prominence versus caliectasis in lower pole. LEFT KIDNEY: 12.2 x 6.7 x 5.8 cm (SAG x AP x TRV). The kidney is normal in size, contour, and echogenicity. Renal cortical thickness is normal. No calculi or focal parenchymal lesions. No hydronephrosis. There is anechoic cyst in midpole measuring 0.7 x 0.9 x 0.7 cm. There is an echogenic stone in lower pole measuring 0.7 x 0.7 x 0.8 cm. IMPRESSION: 1. There is an anechoic cyst midpole left kidney. 2. There is an echogenic stone lower pole left kidney without caliectasis or hydronephrosis. 3. There is mild peripelvic calyceal versus caliectasis in the lower pole right kidney. Date of Service: 09/26/23 XR ABDOMEN KUB CLINICAL INDICATION: Left-sided renal stone COMPARISON: None available. TECHNIQUE: AP view of the abdomen. FINDINGS: There is scattered stool and gas seen in the colon without any significant distention. There is a 1.1 cm stone left lower pole kidney. There is a left ureteral stent in place. There is no organomegaly. There is moderate spondylosis L1-L2 and mild spondylosis L3-L4 and L4-L5 disc levels. IMPRESSION: 1. 1.1 cm stone left lower pole kidney. 2. Left ureteral stent is in place. 3. Mild constipation. Date of Service: 09/17/23 EXAMINATION: CT ABDOMEN AND PELVIS WITHOUT CONTRAST CLINICAL INFORMATION: left flank pain. COMPARISON: No pertinent prior studies are available for comparison. TECHNIQUE: Multidetector volumetric imaging was performed from the superior aspect of the liver through the pubic symphysis without contrast per renal stone protocol. Sagittal and coronal reformatted images were obtained on the technologist workstation. This CT examination was performed using dose optimization techniques as appropriate, variously including the following: *Automated exposure control *Adjustment of mA and/or kV according to patient size (this includes techniques or standardized protocols for targeted exams where dose is matched to indication/reason for exam; i.e. extremities or head) *Use of iterative reconstruction technique DLP: 760 mGy-cm. FINDINGS: LUNG BASES: The visualized lung bases are unremarkable. Prominent coronary artery calcification LIVER, GALLBLADDER, BILIARY TREE: The non-contrast liver is normal in size, shape, and attenuation. No focal hepatic lesion or biliary ductal dilatation is present. The gallbladder is unremarkable with no evidence of radiopaque gallstones, gallbladder wall thickening, or obvious pericholecystic inflammatory changes. PANCREAS: Unremarkable. SPLEEN: Unremarkable. ADRENAL GLANDS: Unremarkable. KIDNEYS AND URETERS: Mild hydronephrosis to the left kidney extending up to a 1.3 cm calcification at the left ureteropelvic junction. The ureter distal to this however is also distended up to one another 0.4 cm calculi at the left ureterovesicular junction. I do not appreciate any obstructive changes to the contralateral right kidney however there is a tiny punctate 2 mm calcification at the contralateral right ureteral vesicular junction as well. BLADDER: In addition to the calculi at the bilateral ureterovesicular junction there is an additional tiny 2 mm calcification within the posterior bladder lumen on the right GASTROINTESTINAL TRACT: Colonic diverticulosis more so in the sigmoid colon. I do not appreciate any colonic wall thickening or pericolonic inflammatory change to suggest diverticulitis. Small bowel unremarkable ABDOMINAL WALL: Small fat-containing umbilical hernia LYMPHOVASCULAR STRUCTURES: Prominent vascular calcification within the aorta iliac system. No bulky adenopathy. PELVIC VISCERA: Unremarkable. OSSEUS STRUCTURES: Multilevel degenerative changes in the spine and hips IMPRESSION: Left-sided hydronephrosis and hydroureter extending up to both a 1.3 cm calcification at the left ureteropelvic junction as well as also a 0.4 cm calcification at the left ureterovesicular junction. There is a tiny punctate 2 mm calcification at the contralateral right ureterovesicular junction as well. 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 The patient has a history of making kidney stones and completed a 24-hour urine collection at home for evaluation. The patient is also followed for BPH and is currently taking tamsulosin to help with urine flow. Results - 24-hour Urine Collection: - Volume: Approximately 3 liters - Calcium: 402 (normal < 250) - Sodium: 204 (normal 50-150) - Oxalate: 48 (normal 20-40) Plan 1. Nephrolithiasis - The patient's 24-hour urine collection results were reviewed, showing elevated calcium at 402, elevated sodium at 204, and oxalate at the higher end of normal at 48. - The patient's high urine volume of approximately 3 liters was noted as a positive factor in flushing the kidneys. - A referral will be sent to Nephrology for further evaluation of the abnormal urine values and to discuss potential medication options. - The patient was advised to decrease sodium intake to no more than 2,500 mg per day by reading food labels. - It was recommended to eat high-oxalate foods, such as nuts, chocolate, tea, and green leafy vegetables, in moderation. - The biomedical repair technician will mail the patient the lab results along with a diet information sheet. - A follow-up kidney ultrasound is scheduled for nine months, with a subsequent follow-up visit to be arranged at that time. 2. Benign Prostatic Hyperplasia (Bph) - The patient will continue taking tamsulosin (Flomax) to aid with urine flow. - A PSA blood test will be ordered to monitor prostate health, and the patient can have it drawn at any associated lab. - Office staff will contact the patient to provide information on lab locations. Orders: Orders PSA,Total (Free>4and<10) Today N20.0 - Calculus of kidney, N40.1 - Benign prostatic hyperplasia with lower urinary tract symptoms, R82.993 - Hyperuricosu sherry, R82.994 - Hypercalciuria Referrals Nephrology Referral N20.0 - Calculus of kidney, R82.993 - Hyperuricosuria, R82.994 - Hypercalciuria Medications: Refilled tamsulosin 0.4 mg PO BEDTIME 90 caps 3RF 90 days Patient Instructions: The patient had an opportunity to ask questions regarding treatment plan. The patient expressed understanding and agreement with the above treatment plan. The patient is aware they should contact our office by phone for worsening of their current condition or the appearance of new symptoms. Compliance is encouraged with any medications and followup testing that is ordered. It is a privilege to be allowed the opportunity to participate in the urologic care of your patient. If you have any questions or concerns regarding treatment for the above conditions please do not hesitate to contact me. The office telephone contact is [phone]. This note is constructed in part using voice recognition software. While every effort has been made to ensure accuracy tank inspector errors may have been included. Yours sincerely, Ryan Prince MD Scribe Plan - Not visible on output: Patient was informed and verbally consented to the use of an ambient scribe for clinic note documentation during this visit. Coding Level of Care Code Tele Est Pt Level 4 (91085) Complex visit Add On G2211 Diagnoses BPH loc w urin obs/LUTS N40.1 Nephrolithiasis N20.0 Hypercalciuria R82.994 Hyperuricosuria R82.993
--- OUTSIDE RECORDS SUMMARY | 2025-08-10 07:28 | XMS_ITS | Clinical Summary ---
Author Organization [facility] Address [address] [place] [id number] Phone Care Team Providers Care Valve Inspector Name Role Phone Pk Thompson MD Primary Care Provider [phone] Allergies No known active allergies Medications atorvastatin [...] years) (1 of 1 - PCV) 2011 RSV VACCINE (1 - Risk 50-74 years 1-dose series) 2011 CREATININE LEVEL 12/01/2016 12/02/2015, , 11/18/2015 SCREENING FOR DIABETES 12/01/2018 6, 12/01/2015, 11/30/2015 ZOSTER VACCINES (2 of 2) 06/08/2019 04/13/2019 INFLUENZA VACCINE (#1) 2025 3, 06/18/2020, 06/20/2019, Additional history exists COVID-19 VACCINE (2024- season) 2025 11/30/2020 SMOKING STATUS SCREENING (Once After 26 Yrs) [...] Urea Nitrogen 9 8 - 25 mg/dL [facility] Plasma Creatinine 0.65 0.60 - 1.50 mg/dL [facility] eGFR >60 mL/min/1.7 3m2 [facility] Comment: Abnormal if <60 mL/min/1.73m2. If patient is -Gambian, multiply the result by 1.21. 12/02/2015 5:36 AM EDT 12/02/2015 5:56 AM EDT Comment:BLOOD us Marley Zayas MD LAB BLOOD BKR ORDERAB LES Edited Result - Final [facility] [address] [place] [address] * (ABNORMAL) Glucose (12/02/2015 5:36 AM EDT) Plasma Glucose 199(Abnor alyce H) 70 - 110 mg/dL [facility] 12/02/2015 5:36 AM EDT 12/02/2015 5:56 AM EDT Comment:BLOOD us Marley Zayas MD LAB BLOOD BKR ORDERAB LES Edited Result - Final [facility] [address] [place] [address] from Last 3 Months or Most Recently Relevant to Health Maintenance Insurance Care Teams Valve Inspector Relationship Specialty Start Date End Date Pk Thompson MD [address] [place] [id number] PCP - General Family Medicine 09/15/24 Additional Source Comments The information contained in this document represents components of the legal health record. It is not the complete legal health record.[facility]
--- OUTSIDE RECORDS SUMMARY | 2025-08-10 07:28 | XMS_ITS | Encounter Summary ---
Author Organization [facility] Address [address] [place] [address] Phone Care Team Providers Care Heel Cover Splitter Name Role Phone Pk Thompson MD Primary Care Provider [phone] Encounter Details Date Type Department Care Team (Late st Contact Info) Description 09/18/[address] - [address], [address] [place] [id number] Social History Tobacco Use Types Packs/Day Years [...] on filedocumented in this encounter Care Teams Heel Cover Splitter Relationship Specialty Start Date End Date Pk Thompson MD [address] [place], [place] [id number] PCP - General Family Medicine 09/15/24 documented as of this encounter Additional Source Comments The information contained in this document represents components of the legal health record. It is not the complete legal health record.[facility]
--- OUTSIDE RECORDS SUMMARY | 2025-08-10 07:28 | XMS_ITS | Patient Health Record ---
Author Organization [facility] Sudha Crowe Address [address] [address] [place] [address] Care Team Providers Care Wine Steward/Stewardess Name Role Phone Pk Thompson Primary Care Provider Roberto Garcia Unavailable [phone] Allergies No Known Allergies Results Component Value [...] Problem Acquired hammer toe of right foot (4613111926085791 ) Other hammer toe(s) (acquired), right foot (M20.41) Active confirmed Problem Acquired hammer toe of left foot ([id number] ) Other hammer toe(s) (acquired), left foot (M20.42) Active confirmed Problem Polyneuropathy due to type 2 diabetes mellitus (489683929) Type 2 diabetes mellitus with diabetic polyneuropathy (E11.42) Active confirmed Vital Signs Blood pressure diastolic 65 mm Hg 03/17/2025 Height 6 ft in 03/17/2025 Blood pressure systolic 128 mm Hg 03/17/2025 Weight 225 lbs 03/17/2025 BMI 30.51 kg/m2 03/17/2025 Encounters Encounter Location Date Provider Diagnosis [facility] [place] [address] [place] [address] 03/17/2025 Roberto Crandall Type 2 diabetes mellitus [...] Provider Name:Roberto Crandall , 03/30/2026 08:45:00 AM, [address] [place] [address], [phone], Insurance Providers Payer Name Payer Address Payer Phone Subscriber Number Group Number Insured Name Patient Relationship to Insured Coverage Start Date Coverage End Date [facility] [address] [place] [address] [phone] [id number] Julien Hein Self - patient is the insured Medical (General) History Medical History History ICD Code Chicken pox Diabetes mellitus Joint implants/screws Hypercholesterolemia Surgical History Surgery Date(Month/Year) knee surgery, left 1974, 2010 knee surgery, right 1975, 2012 shoulder dislocation 1977, 1979 shoulder replacement 2017 carpal tunnel both hands 01-07-22
== END 2025-08-10 12:01 | disposition home or self-care (01) ==
LOC: HO.HUSH 07:25
PROVIDERS: PCP Family Medicine; Visit Provider Urology
DX: N40.1 Benign prostatic hyperplasia with lower urinary tract symptoms (principal); N20.0 Calculus of kidney; R82.994 Hypercalciuria; R82.993 Hyperuricosuria
CPT/HCPCS: 99214

== ENCOUNTER 2025-08-13 14:26 | Outpatient (AMB) | payer BC, SELFPAY ==
--- NOTE | 2025-08-13 14:27 | HO.NEPHOV_ITS ---
Vital Signs 08/13/25 14:28 Height 6 ft Weight 187 lb BMI 25.4 BP 108/62 Blood Pressure Location Rt brachial Position Sitting Pulse 88 Pulse Source Pulse Oximeter Pulse Oximetry (%) 97 Oxygen Delivery Method Room Air Intake Visit Reasons: Hypercalciuria, last seen 03/2024 Indoor Plant Technician Required: No Accompanied by: Self / Same As Patient Allergies No Known Allergies Allergy (Verified 08/13/25 14:31) Medication List - Last Reconciled 08/13/25 by Cody Duncan MD amlodipine 5 mg PO BEDTIME atorvastatin 40 mg PO BEDTIME dapagliflozin propanediol (Farxiga) 10 mg PO DAILY metformin ER 1,000 mg PO BID multivitamin 1 tab PO BEDTIME semaglutide (Ozempic) 3 mg subcut QWEEK tamsulosin 0.4 mg PO BEDTIME 90 days HPI Comments Details: . Michele is a pleasant 64-year-old man with a history of diabetes mellitus. He was on metformin and glyburide in the past later switched to Trulicity. Currently he is on Ozempic. In September of 2023 he had severe flank pain and was found to have a left renal stone with left hydronephrosis. He underwent a cystoscopy with stent placement and subsequently underwent ESWL and stent removal. 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 Has a history of hypertension and blood pressure has been well controlled with amlodipine 5 mg a day. All the lab data from [facility] and [facility] was reviewed. Renal function has been stable with a creatinine of 0.8 mg/dL. No documented hypercalcemia. 08/13/25 The patient is a 65 year old male presenting for follow-up of nephrolithiasis and review of recent laboratory studies. He recently had a kidney stone that required lithotripsy. A CT scan in December found a small stone in the bladder. A recent 24-hour urine collection from June showed markedly different results compared to last year's values. Specifically, urine calcium increased from 285 to 402, sodium from 96 to 204, and uric acid from 525 to 1071. Urine potassium was also elevated at 103. The patient denies any significant changes to his diet and does not eat a lot of red meat, though he acknowledges eating fast-food hamburgers or Uzbek subs about twice a week. His fluid intake is adequate, with a urine volume of 3 liters on both recent and past collections. The patient reports significant weight loss, from a high of 224 lbs to a current weight of 187 lbs, which he attributes to a change in his Ozempic dosage, and he notes feeling well. His current medications include amlodipine, Farxiga, and Ozempic. He denies nocturia. REPLACED BY [facility] Medical History Renal calculi Hyperlipidemia Hypertension Diabetes type 2, controlled Surgical History Hx of lithotripsy H/O shoulder surgery History of right shoulder replacement Hx of knee surgery Social History Household Members: Spouse Housing: House Do you presently have visiting nurse or other home services: No Patient Tobacco Use Status: Never used Tobacco service: No Physical Exam Vital Signs: Last Vital Signs Pulse 88 08/13/25 14:28 BP 108/62 08/13/25 14:28 Pulse Ox 97 08/13/25 14:28 Oxygen Delivery Method Room Air 08/13/25 14:28 BMI result Body Mass Index 25.4 Comfortable Neck supple no JVD. Lungs entry equal no rales. Heart S1-S2 heard no gallop or rub. Abdomen soft nontender. Neuro alert awake oriented. No asterixis. Extremities no edema. Results Reviewed Results Reviewed: 24 hr urine Volume 3000 Na 98 Tucker 295 Nephrology Results: Renal US 11/07/23 Assessment & Plan Assessment & Plan (1) Nephrolithiasis: Code(s): N20.0 - Calculus of kidney Category: Medical (2) Hypercalciuria: Code(s): R82.994 - Hypercalciuria Category: Medical Plan: Resolved (3) Hypertension: Code(s): I10 - Essential (primary) hypertension Category: Medical Plan: Today blood pressure is well controlled. NO changes in Medications Plan Nephrolithiasis Since the 24 hr urine results are dramatically different from the previous one, I will repeat it stay on a 2 g sodium diet. In the meantime,Maintain urine output of at least 2 L per 24 hours. Orders: Orders Creatinine, 24 Hr Group 4 Weeks N20.0 - Calculus of kidney, R82.994 - Hypercalciuria Calcium, 24 Hr Ur 4 Weeks N20.0 - Calculus of kidney, R82.994 - Hypercalciuria Oxalate, 24 Hr 4 Weeks N20.0 - Calculus of kidney, R82.994 - Hypercalciuria Uric Acid, 24Hr Urine Group 4 Weeks N20.0 - Calculus of kidney, R82.994 - Hypercalciuria Basic Metabolic Panel 4 Weeks N20.0 - Calculus of kidney, R82.994 - Hypercalciuria Parathyroid Hormone Intact 4 Weeks N20.0 - Calculus of kidney, R82.994 - Hypercalciuria Phosphorus 4 Weeks N20.0 - Calculus of kidney, R82.994 - Hypercalciuria Sodium, 24Hr Urine Group 4 Weeks N20.0 - Calculus of kidney, R82.994 - Hypercalciuria Citric Acid 24hr Urine 4 Weeks N20.0 - Calculus of kidney, R82.994 - Hypercalciuria Uric Acid 4 Weeks N20.0 - Calculus of kidney, R82.994 - Hypercalciuria Coding Level of Care Code Est Pt Level 4 (56574) Diagnoses Nephrolithiasis N20.0 Hypercalciuria R82.994 Hypertension I10
[2025-08-13 14:28] VITALS: BP 108/62; PULSE 88; O2SAT 97; BMI 25.4
--- OUTSIDE RECORDS SUMMARY | 2025-08-13 20:08 | XMS_ITS | Encounter Summary ---
Author Organization [facility] Address [address] [place] [address] Phone Care Team Providers Care Architectural Engineer Name Role Phone Pk Thompson MD Primary Care Provider [phone] Encounter Details Date Type Department Care Team (Late st Contact Info) Description 09/18/[address], [facility] Imaging - [address], [address] [place] [id number] Social History Tobacco Use Types Packs/Day Years [...] on filedocumented in this encounter Care Teams Architectural Engineer Relationship Specialty Start Date End Date Pk Thompson MD [address] [place], [place] [id number] PCP - General Family Medicine 09/15/24 documented as of this encounter Additional Source Comments The information contained in this document represents components of the legal health record. It is not the complete legal health record.[facility]
--- OUTSIDE RECORDS SUMMARY | 2025-08-13 20:08 | XMS_ITS | Clinical Summary ---
Author Organization [facility] Address [address] [place] [address] Phone Care Team Providers Care Machine Stripper Name Role Phone Pk Thompson MD Primary Care Provider [phone] Allergies No known active allergies Medications atorvastatin [...] Urea Nitrogen 9 8 - 25 mg/dL Plasma Creatinine 0.65 0.60 - 1.50 mg/dL eGFR >60 mL/min/1.7 3m2 Comment: Abnormal if <60 mL/min/1.73m2. If patient is -Croatian, multiply the result by 1.21. 12/02/2015 5:36 AM EDT 12/02/2015 5:56 AM EDT Comment:BLOOD us Marley Zayas MD LAB BLOOD BKR ORDERAB LES Edited Result - Final [address] [address] * (ABNORMAL) Glucose (12/02/2015 5:36 AM EDT) Plasma Glucose 199(Abnor alyce H) 70 - 110 mg/dL 12/02/2015 5:36 AM EDT 12/02/2015 5:56 AM EDT Comment:BLOOD us Marley Zayas MD LAB BLOOD BKR ORDERAB LES Edited Result - Final [address] [place] [address] from Last 3 Months or Most Recently Relevant to Health Maintenance Insurance Care Teams Machine Stripper Relationship Specialty Start Date End Date Pk Thompson MD [address] [place] [address] PCP - General Family Medicine 09/15/24 Additional Source Comments The information contained in this document represents components of the legal health record. It is not the complete legal health record.[facility]
== END 2025-08-13 14:49 | disposition home or self-care (01) ==
LOC: HO.HKA 14:27
PROVIDERS: PCP Family Medicine; Visit Provider Internal Medicine Hypertension Specialist
DX: N20.0 Calculus of kidney (principal); R82.994 Hypercalciuria; I10 Essential (primary) hypertension
CPT/HCPCS: 99214

== ENCOUNTER 2025-09-04 12:14 | Outpatient (REF) | payer BC, SELFPAY ==
--- OUTSIDE RECORDS SUMMARY | 2024-03-06 09:00 | XMS_ITS ---
Author Organization [facility] celestine [place] Address [address] [facility] [place] [address] Care Team Providers Care Dressing Machine Operator Name Role Phone Pk Thompson Primary Care Provider UnavailRoberto Yun Unavailable [phone] Darvin Downey Unavailable [phone] Pretty Encounters Encounter Location Date Provider Diagnosis [address] [address] 03/06/2024 Darvin Downey Plan Of Treatment Next Appt Details Provider Name:Roberto Crandall , 03/30/2026 08:45:00 AM, [address] [place], [address], Progress Notes * Julien LUNA BDOB: [birth year] (65 yo M)Acc No.[id number]:03/06/2024 Progress Note Patient: Celestine BAIG Julien Cody Provider: Sulma Hernández DPM :1960 A ge:64 Y S ex:Male Date:03/06/2024 Address: [address] [id number] Pcp:Pk Thompson Subjective: * Chief Complaints: * [...] DPM Date: 0 03/06/2024 Generated for Duke Mancilla on: 1 11/05/2024 12:18 PM EST
--- OUTSIDE RECORDS SUMMARY | 2025-09-04 12:18 | XMS_ITS | Encounter Summary ---
Author Organization [facility] Address [address] [place] [address] Phone Care Team Providers Care Medical Records Supervisor Name Role Phone Pk Thompson MD Primary Care Provider [phone] Encounter Details Date Type Department Care Team (Late st Contact Info) Description 09/18/[address], [facility] Imaging - [address], [address] [place] [id number] Social History Tobacco Use Types Packs/Day Years [...] on filedocumented in this encounter Care Teams Medical Records Supervisor Relationship Specialty Start Date End Date Pk Thompson MD [address] [place], [place] [id number] PCP - General Family Medicine 09/15/24 documented as of this encounter Additional Source Comments The information contained in this document represents components of the legal health record. It is not the complete legal health record.[facility]
--- OUTSIDE RECORDS SUMMARY | 2025-09-04 12:18 | XMS_ITS | Patient Health Record ---
Author Organization [facility] Sudha Crowe Address [address] [facility] [place] [address] Care Team Providers Care [place] Police Lieutenant Name Role Phone Pk Thompson Primary Care Provider Roberto Garcia Unavailable [phone] Allergies No Known Allergies Results Component Value [...] Problem Acquired hammer toe of right foot (8896753427374522 ) Other hammer toe(s) (acquired), right foot (M20.41) Active confirmed Problem Acquired hammer toe of left foot (8732335069125092 ) Other hammer toe(s) (acquired), left foot (M20.42) Active confirmed Problem Polyneuropathy due to type 2 diabetes mellitus (476214641) Type 2 diabetes mellitus with diabetic polyneuropathy (E11.42) Active confirmed Vital Signs Blood pressure diastolic 65 mm Hg 03/17/2025 Height 6 ft in 03/17/2025 Blood pressure systolic 128 mm Hg 03/17/2025 Weight 225 lbs 03/17/2025 BMI 30.51 kg/m2 03/17/2025 Encounters Encounter Location Date Provider Diagnosis [facility] [place] [address] [place] [address] 03/17/2025 Roberto Crandall Type 2 diabetes mellitus [...] Provider Name:Roberto Crandall , 03/30/2026 08:45:00 AM, [address] [place] [address], [phone], Insurance Providers Payer Name Payer Address Payer Phone Subscriber Number Group Number Insured Name Patient Relationship to Insured Coverage Start Date Coverage End Date [facility] [address] [place] [address] [phone] [id number] Julien Hein Self - patient is the insured Medical (General) History Medical History History ICD Code Chicken pox Diabetes mellitus Joint implants/screws Hypercholesterolemia Surgical History Surgery Date(Month/Year) knee surgery, left 1974, 2010 knee surgery, right 1975, 2012 shoulder dislocation 1977, 1979 shoulder replacement 2017 carpal tunnel both hands 01-07-22
--- OUTSIDE RECORDS SUMMARY | 2025-09-04 12:18 | XMS_ITS | Clinical Summary ---
Author Organization [facility] Address [address] [place] [address] Phone Care Team Providers Care It Operations Specialist Name Role Phone Pk Thompson MD Primary Care Provider Allergies No known active allergies Medications atorvastatin [...] Urea Nitrogen 9 8 - 25 mg/dL [facility] Plasma Creatinine 0.65 0.60 - 1.50 mg/dL [facility] eGFR >60 mL/min/1.7 3m2 [facility] Comment: Abnormal if <60 mL/min/1.73m2. If patient is -Swiss, multiply the result by 1.21. 12/02/2015 5:36 AM EDT 12/02/2015 5:56 AM EDT Comment:BLOOD us Marley Zayas MD LAB BLOOD BKR ORDERAB LES Edited Result - Final [facility] [address] [place] [address] * (ABNORMAL) Glucose (12/02/2015 5:36 AM EDT) Plasma Glucose 199(Abnor alyce H) 70 - 110 mg/dL [facility] 12/02/2015 5:36 AM EDT 12/02/2015 5:56 AM EDT Comment:BLOOD us Marley Zayas MD LAB BLOOD BKR ORDERAB LES Edited Result - Final [facility] [address] [place] [address] from Last 3 Months or Most Recently Relevant to Health Maintenance Insurance Care Teams It Operations Specialist Relationship Specialty Start Date End Date Pk Thompson MD [address] [place] [address] PCP - General Family Medicine 09/15/24 Additional Source Comments The information contained in this document represents components of the legal health record. It is not the complete legal health record.[facility]
[2025-09-04 13:13] LABS: Uric Acid 3.9 mg/dL (3.4-7.0)
[2025-09-04 13:21] LABS: Parathyroid Hormone Intact 53.9 pg/mL (8.7-77.1)
[2025-09-04 13:35] LABS: PSA,Total (Free>4and<10) 1.20 ng/mL (0.00-4.00)
== END 2025-09-04 12:15 | disposition home or self-care (01) ==
LOC: HO.LAB 12:14
PROVIDERS: Urology; PCP Family Medicine; Visit Provider Internal Medicine Hypertension Specialist
DX: N40.1 Benign prostatic hyperplasia with lower urinary tract symptoms (principal); N20.0 Calculus of kidney; R82.994 Hypercalciuria; R82.993 Hyperuricosuria; Z12.5 Encounter for screening for malignant neoplasm of prostate
CPT/HCPCS: 36415; 83970; 84100; 84153; 84550

== ENCOUNTER 2025-09-07 07:30 | Outpatient (REF) | payer BC, SELFPAY ==
--- OUTSIDE RECORDS SUMMARY | 2025-09-07 09:58 | XMS_ITS | Clinical Summary ---
Author Organization [facility] Address [address] [place] [address] Phone Care Team Providers Care Stone Paver Name Role Phone Pk Thompson MD Primary Care Provider [phone] Allergies No known active allergies Medications atorvastatin [...] Urea Nitrogen 9 8 - 25 mg/dL [facility] Plasma Creatinine 0.65 0.60 - 1.50 mg/dL [facility] eGFR >60 mL/min/1.7 3m2 [facility] Comment: Abnormal if <60 mL/min/1.73m2. If patient is -[place]guill[place], multiply the result by 1.21. 12/02/2015 5:36 AM EDT 12/02/2015 5:56 AM EDT Comment:BLOOD us Marley Zayas MD LAB BLOOD BKR ORDERAB LES Edited Result - Final [facility] [address] [place] [address] * (ABNORMAL) Glucose (12/02/2015 5:36 AM EDT) Plasma Glucose 199(Abnor alyce H) 70 - 110 mg/dL [facility] 12/02/2015 5:36 AM EDT 12/02/2015 5:56 AM EDT Comment:BLOOD us Marley Zayas MD LAB BLOOD BKR ORDERAB LES Edited Result - Final [facility] [address] [place] [address] from Last 3 Months or Most Recently Relevant to Health Maintenance Insurance Care Teams Stone Paver Relationship Specialty Start Date End Date Pk Thompson MD [address] [place] [address] PCP - General Family Medicine 09/15/24 Additional Source Comments The information contained in this document represents components of the legal health record. It is not the complete legal health record.[facility]
--- OUTSIDE RECORDS SUMMARY | 2025-09-07 09:58 | XMS_ITS | Encounter Summary ---
Author Organization [facility] Address [address] [place] [address] Phone Care Team Providers Care Rv Detailer Name Role Phone Pk Thompson MD Primary Care Provider [phone] Encounter Details Date Type Department Care Team (Late st Contact Info) Description 09/18/[address], [facility] Imaging - [address], [address] [place] [id number] Social History Tobacco Use Types Packs/Day Years [...] on filedocumented in this encounter Care Teams Rv Detailer Relationship Specialty Start Date End Date Pk Thompson MD [address] [place], [place] [phone] PCP - General Family Medicine 09/15/24 documented as of this encounter Additional Source Comments The information contained in this document represents components of the legal health record. It is not the complete legal health record.[facility]
--- OUTSIDE RECORDS SUMMARY | 2025-09-07 09:58 | XMS_ITS | Patient Health Record ---
Author Organization [facility] Sudha Crowe Address [address] [facility] [place] [address] Care Team Providers Care Web Site Designer Name Role Phone Pk Thompson Primary Care Provider Roberto Garcia Unavailable [phone] Allergies No Known Allergies Results Component Value [...] Problem Acquired hammer toe of right foot (1332769023949436 ) Other hammer toe(s) (acquired), right foot (M20.41) Active confirmed Problem Acquired hammer toe of left foot (4552382700216345 ) Other hammer toe(s) (acquired), left foot (M20.42) Active confirmed Problem Polyneuropathy due to type 2 diabetes mellitus (961929351) Type 2 diabetes mellitus with diabetic polyneuropathy (E11.42) Active confirmed Vital Signs Blood pressure diastolic 65 mm Hg 03/17/2025 Height 6 ft in 03/17/2025 Blood pressure systolic 128 mm Hg 03/17/2025 Weight 225 lbs 03/17/2025 BMI 30.51 kg/m2 03/17/2025 Encounters Encounter Location Date Provider Diagnosis [facility] [place] [address] [place] [address] 03/17/2025 Roberto Crandall Type 2 diabetes mellitus [...] Provider Name:Roberto Crandall , 03/30/2026 08:45:00 AM, [address] [place] [address], [phone], Insurance Providers Payer Name Payer Address Payer Phone Subscriber Number Group Number Insured Name Patient Relationship to Insured Coverage Start Date Coverage End Date [facility] [address] [place] [address] [id number] Julien Hein Self - patient is the insured Medical (General) History Medical History History ICD Code Chicken pox Diabetes mellitus Joint implants/screws Hypercholesterolemia Surgical History Surgery Date(Month/Year) knee surgery, left 1974, 2010 knee surgery, right 1975, 2012 shoulder dislocation 1977, 1979 shoulder replacement 2017 carpal tunnel both hands 01-07-22
[2025-09-07 10:15] LABS: Creatinine, mg/dL 39.21
[2025-09-07 10:26] LABS: Creatinine, mg/dL 39.83; Sodium, 24 Hr Urine 71.0 mmol/L
[2025-09-07 10:27] LABS: Uric Acid, mg/dL 19.6 mg/dL
[2025-09-07 10:32] LABS: Total Volume 24 Hour Urine 3800 mL
== END 2025-09-07 07:31 | disposition home or self-care (01) ==
LOC: HO.LNP 07:30
PROVIDERS: Visit Provider Internal Medicine Hypertension Specialist
DX: N20.0 Calculus of kidney (principal); R82.994 Hypercalciuria
CPT/HCPCS: 82340; 82507; 83945; 84300; 84560